=== PATIENT | male | born 1965 | race Caucasian/White ===

== ENCOUNTER 2021-05-15 11:24 | Inpatient (IN) | payer SELFPAY ==
[2021-05-15] VITALS (44 sets, daily range): BP systolic 100–149; BP diastolic 63–115; PULSE 78–124; RESP 12–23; TEMP 36.6–36.9; O2SAT 93–98; BMI 31.6
--- NOTE | 2021-05-15 11:29 | ECG_ITS ---
Measurements Intervals [place] Rate: 75 P: 49 NC: 158 QRS: 70 QRSD: 89 T: 79 QT: 392 QTc: 439 Interpretive Statements SINUS RHYTHM ATRIAL PREMATURE COMPLEX POSSIBLE RIGHT ATRIAL ENLARGEMENT POSSIBLE LEFT ATRIAL ENLARGEMENT INFERIOR ST ELEVATION MYOCARDIAL INFARCT- ACUTE POSTERIOR INFARCT, ACUTE BASELINE ARTIFACT- I, II, III, AVR, AVL, AVF, V1-V2, V4-V6 ABNORMAL ECG Electronically Signed On 05-15-2021 11:57:19 CDT by Tahir Roe D.O.
--- NOTE | 2021-05-15 11:41 | ED.CHESTPAIN ---
HPI - Chest Pain General Chief Complaint: Chest Pain Stated Complaint: cp Time Seen by Provider: 05/15/21 11:30 History of Present Illness HPI narrative: Patient is a 56-year-old male who presents ER with chest pain. Central. Nonradiating. Reports he was sitting in a chair to chiropractor's office getting stem to his back for previous injury when he developed the pain. Occurred 1 hour prior to arrival. He took 3 baby aspirin's prior to arriving here. Reports mild improvement. No n/v/soa/dizziness. Has not had similar sx. Feels like he is having a heart attack. Related Data Allergies Allergy/AdvReac Type Severity Reaction Status Date / Time No Known Allergies Allergy Unverified 12/30/18 10:47 Review of Systems Review of Systems: All systems reviewed & are unremarkable except as noted in HPI and below Constitutional: Constitutional: Denies chills, Denies fever(s) and Denies weakness Cardiovascular: Cardiovascular: Reports chest pain, Denies rapid heart rate and Denies radiating jaw, neck or arm pain Respiratory: Respiratory: Denies cough, Denies dyspnea and Denies wheezing Gastrointestinal: Gastrointestinal: Denies abdominal pain, Denies nausea and Denies vomiting Musculoskeletal: Musculoskeletal: Reports back pain and Denies muscle cramps Neurologic: Denies headache(s), Denies focal weakness and Denies numbness PMFSH Past Medical History Medical History (Updated 05/15/21 @ 11:45 by Pavel Kilgore MD) Healthy adult male Surgical History Surgical History (Updated 05/15/21 @ 11:45 by Pavel Kilgore MD) H/O rotator cuff surgery Family History Family History (Updated 02/24/16 @ 23:21 by DOCTOR UNKNOWN) Sibling Patient's sister is in good health Patient's brother is in good health Family history of hepatitis Father Patient's father is Social History Social History Smoking status: Heavy tobacco smoker Second hand tobacco smoke exposure: No Alcohol intake: current Exam Narrative: GENERAL: Well-appearing, well-nourished, and in no acute distress. HEAD: Normocephalic, atraumatic. EYES: PERRL and EOMI. CHEST: Clear to auscultation. No respiratory distress. HEART: Regular rate and rhythm. Normal peripheral pulses. ABDOMEN: Soft, nontender, nondistended. EXTREMITIES: Normal range of motion. No edema. SKIN: Warm, dry, no rash. NEURO: Alert and oriented x3. PSYCH: Normal mood and affect. Course Course Emergency Course: STEMI activated prior to the EKG being printed due to artifact but obvious ST elevation in lead III. Cath team arrived to patient's bedside. Agree with STEMI diagnosis and will take to [employer]. Patient received an additional dose of baby aspirin here since he had taken 3 baby aspirin's prior to arrival. Additionally received oral Brilinta the request of cardiology. He also received IV heparin. Vital Signs Vital signs: Vital Signs Pulse Rate 78 05/15/21 11:38 Respiratory Rate 16 05/15/21 11:38 Blood Pressure 149/103 H 05/15/21 11:38 Pulse Oximetry 96 05/15/21 11:38 Pulse Rate 78 05/15/21 11:38 Respiratory Rate 16 05/15/21 11:38 Blood Pressure 149/103 H 05/15/21 11:38 Pulse Oximetry 96 05/15/21 11:38 MDM - Chest Pain Lab Data Result diagrams: 05/15/21 11:41 05/15/21 11:41 ECG Data EKG #1: ECG completion date: 05/15/21 ECG completion time: 11:35 EKG Interpretation: normal rate (75), sinus rhythm, PVCs, ST elevation (II/III/aVF), normal QRS, normal QT and NL axis Critical Care Time Critical Care Time Critical Care Time: Yes Total Critical Care Time: 20 Discharge Plan Discharge Clinical Impression: ST elevation AR (STEMI) Patient Disposition: Still a Patient Condition: Guarded Prognosis
[2021-05-15 11:51] LABS: Basophils Absolute Auto 0.1 K/mm3 (0.0-0.1); Basophils Percent Auto 0.7 % (0.2-1.2); Eosinophils Absolute Auto 0.2 K/mm3 (0-0.3); Eosinophils Percent Auto 1.6 % (0-4.4); Hematocrit 52.8 % (42.0-52.0); Hemoglobin 18.4 g/dL (14.0-18.0); Immature Granulocyte Absolute 0.06 K/mm3 (0.00-0.031); Immature Granulocyte Percent A 0.5 % (0-0.5); Lymphocytes Absolute Auto 2.26 K/mm3 (0.9-3.2); Lymphocytes Percent Auto 18.6 % (18.3-44.2); Mean Corpuscular HGB Conc 34.8 g/dl (32-36); Mean Corpuscular Hemoglobin 31.9 pg (26-34); Mean Corpuscular Volume 91.5 fl (80-100); Mean Platelet Volume 9.6 fl (7.4-10.4); Monocytes Absolute Auto 1.1 K/mm3 (0.1-0.6); Neutrophils Absolute Auto 8.4 K/mm3 (1.3-6.7); Neutrophils Percent Auto 69.6 % (45.5-73.1); Platelet Count Result 263 k/mm3 (150-375); Red Blood Count 5.77 M/mm3 (4.6-6.20); Red Cell Distribution Width 12.7 % (11.5-14.5); White Blood Count 12.1 K/mm3 (4.5-10.0)
--- NOTE | 2021-05-15 11:51 | PC.NURSE ---
Pt given brilinta, 4000units heparin, and 4mg of zofran prior to transport to vp lab
[2021-05-15 12:05] LABS: INR 0.9; Prothrombin Time 11.8 Seconds (11.1-14.7)
[2021-05-15 12:06] LABS: Partial Thromboplastin Time 25.4 SECONDS (22.3-36.8)
[2021-05-15 12:09] LABS: Anion Gap 10 mmol/L (8-16); Blood Urea Nitrogen 15 mg/dL (9-20); Calcium 9.6 mg/dL (8.4-10.2); Carbon Dioxide 26 mmol/L (22-30); Chloride 104 mmol/L (98-107); Estimated CRCL calculation 112 ml/min; Estimated Glomerular Filt Rate > 60; Glucose 126 mg/dL (65-110); Potassium 3.7 mmol/L (3.4-5.0); Sodium 140 mmol/L (137-145)
[2021-05-15 12:21] LABS: Troponin I < 0.012 ng/mL (0.000-0.034)
--- NOTE | 2021-05-15 12:41 | ECG_ITS ---
Measurements Intervals [place] Rate: 112 P: [place]: 0 QRS: 61 QRSD: 98 T: -21 QT: 314 QTc: 429 Interpretive Statements ATRIAL FIBRILLATION WITH RAPID VENTRICULAR RESPONSE VENTRICULAR PREMATURE COMPLEX INFERIOR INFARCT, PROBABLY RECENT ABNORMAL ECG Electronically Signed On 05-15-2021 14:33:35 CDT by Tahir Roe D.O.
--- NOTE | 2021-05-15 12:50 | PC.NURSE ---
This patient, Anirudh Orozco, was admitted to Intensive Care Unit-3. Patient/family oriented to hospital policies and general routines including ID bracelet, bed and alarms, visiting hours, pain management, procedures, bathroom and other care routines, personal items, smoking policy, room service/diet, and visiting hours. Information on how to activate the Rapid Response Team has been discussed. Patient/Family are encouraged to report perceived risks to care and to ask questions if they do not understand what they are told or what they should do.
--- NOTE | 2021-05-15 12:50 | WPDCARDPROC ---
Cardiac Cath Procedure Note Date of procedure:: 05/15/21 Performing physician:: Jose Mendoza MD Indication:: acute ST-elevation [place] Brief clinical history:: this is a 56-year-old man with a history of hypertension dyslipidemia and smoking as well as a family history of premature coronary disease. He presents to the emergency room with about 1 hour of significant chest pain and ECG evidence of acute inferior current of injury. Procedure Procedure performed:: Emergency coronary angiogram emergency PCI(CONSTANCE) to OM2 left ventricular Sedation/Medication given:: fentanyl 50 mg Versed 2 mg case start time 11:55 a.m. case end time 12:26 p.m. sedation provided by Raulito Mills RN, trained observer Access site:: right femoral artery Estimated blood loss:: 15-20 cc Procedure note:: patient was brought emergently to the cardiac catheterization lab in the setting of ST-elevation [place]. the right femoral triangle was prepped and draped in the usual fashion. Anesthesia was given with 1% lidocaine infiltrated locally. Using the modified Seldinger technique the right femoral artery was punctured and a 6 Norwegian vascular sheath was placed. I engaged and injected the left coronary artery using a 5 Norwegian FL4 diagnostic catheter. I then engaged and injected the right coronary artery using a 6 Norwegian NASIM JR4 guiding catheter. Following this the cineangiograms were reviewed and PCI of the OM to circumflex was recommended and carried out as detailed below. Prior to PCI the patient was systemically anticoagulated with bolus and infusion of Angiomax. He had received aspirin and 180 mg of Brilinta orally in the emergency room. PCI was then carried out as detailed below. Following this the guidewires guiding catheters were removed and a 5 Norwegian angled pigtail catheter was used to measure of central hemodynamics and to inject LV g in the THORPE projection. After this the case was terminated the sheath was sutured into position he was taken to ICU bed 3. For post mi/PCI recovery. 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 Findings:: Hemodynamics: Central aortic pressure was 144 over 74 left ventricle 140 over 3 end-diastolic 16. No gradient on pullback across the aortic valve. left ventricle: The LV is mildly enlarged the infero posterior segment is severely hypodynamic to a nearly akinetic the remainder of the LV contracts well the global ejection fraction is 50-55%. The left main coronary artery is nicely patent. The left anterior descending is a large caliber vessel extending down to around the apex. There is minimal plaquing but no significant disease in the LAD. The circumflex is a very large vessel with the proximal OM branch taking off ostial E as a ramus intermedius vessel. The ramus branch is unremarkable. The vessel then gives rise to a very large 2nd OM branch that is 100% occluded angiographically appears to be consistent with an abrupt thrombotic occlusion. Following this there is a small posterior circumflex branch that is free of disease. The right coronary artery is small to medium caliber and codominant. The right coronary artery terminates in an RPDA and no RPL branches. The right coronary has about 50-60% stenosis in the 2nd portion there is a long area of mild tubular stenosis. There is ANGELIA 3 flow in the RCA. Intervention: The left coronary artery was engaged using 6 Norwegian CLS 3.5 guiding catheter. A 0.014 BMW guidewire to wire the circumflex, probe the occluded segment of the large OM to traverse the occlusion in the wire was advanced into the distal portion of this vessel. It was pre-dilated using a 3 x 20 mm emerge balloon. This restored ANGELIA 3 flow in the vessel showed it to be quite large. The lesion to be targeted was relatively discrete. Following this the patient developed some concerning ventric
--- NOTE | 2021-05-15 12:59 | PM.IMHP ---
H&P: HPI History of Present Illness Date/Time: 05/15/21 12:59 Chief Complaint: chest pain Narrative: this is a 56-year-old man unknown to me prior to this admission. He is being seen in the emergency room as ST-elevation DE was declared and STEMI protocol was activated by the ED staff. Patient states he was at his chiropractor's office receiving a back treatment dose morning a while he was very suddenly started to notice severe retrosternal chest pressure. He was taken by ambulance to the emergency room where his ECG was she found show evidence of acute inferior current of injury. He reports no history of exertional chest pain prior to this. He is not known to have any cardiac problems prior to this. He states that he is been told by some previous physicians of hypertension and dyslipidemia. I do not believe he is taking any medications at all. Unfortunately he also smokes cigarettes. Patient states his father suffered myocardial infarction and at a premature age. Review of Systems Review of Systems: ROS unobtainable: Yes unobtainable due to medical condition PMFSH Past Medical History Medical History (Updated 05/15/21 @ 11:45 by Pavel Kilgore MD) Healthy adult male Surgical History Surgical History (Updated 05/15/21 @ 11:45 by Pavel Kilgore MD) H/O rotator cuff surgery Family History Family History (Updated 02/24/16 @ 23:21 by DOCTOR UNKNOWN) Sibling Patient's sister is in good health Patient's brother is in good health Family history of hepatitis Father Patient's father is Social History Social History Smoking status: Heavy tobacco smoker Second hand tobacco smoke exposure: No Alcohol intake: current Meds Home Medications and Allergies Allergies Allergy/AdvReac Type Severity Reaction Status Date / Time No Known Allergies Allergy Unverified 12/30/18 10:47 Vital Signs Vital Signs - 24 hr 05/15/21 11:38 Pulse Rate 78 Respiratory Rate 16 Blood Pressure 149/103 H Pulse Oximetry 96 Exam Const: General: in distress and uncomfortable Other: 56-year-old man in moderate distress because of chest pain HENMT: Mouth: Yes moist mucous membranes Eyes: Sclera: sclerae normal Pupils: Equal, round and reactive pupils present Neck: Neck: supple and no JVD Thyroid: thyroid normal Resp: Effort & Inspection: normal respiratory effort Auscultation: clear to auscultation bilaterally Cardio: Rate: regular rate Other: PMI difficult to palpate no murmur no gallop GI: GI Palp: Yes Soft to palpation Auscultation: normal bowel sounds Skin: General skin exam: normal color Neuro: Cognition (Neuro): normal cognition Extrem: General: normal to inspection H&P: Results Labs Labs: Short CBC 05/15/21 Range/Units 11:41 WBC 12.1 H (4.5-10.0) K/mm3 Hgb 18.4 H (14.0-18.0) g/dL Hct 52.8 H (42.0-52.0) % Plt Count 263 (150-375) k/mm3 BMP 05/15/21 11:41 Sodium 140 Potassium 3.7 Chloride 104 Carbon Dioxide 26 BUN 15 Creatinine 0.70 Glucose 126 H Calcium 9.6 Cardiac Enzymes 05/15/21 Range/Units 11:41 Troponin I < 0.012 (0.000-0.034) ng/mL Assessment and Plan Additional Plan 56-year-old man with acute inferior ST-elevation DE being brought for emergency angiography and revascularization. Jose Mendoza MD [facility]
--- NOTE | 2021-05-15 13:22 | WPDCNINT ---
Assessment and Plan Assessment and plan (1) ST elevation [place] (STEMI): Code(s): I21.3 - ST elevation (STEMI) myocardial infarction of unspecified site Status: Acute Assessment and Plan: Patient presented with substernal chest pain while he was at his chiropractor's office. He was brought to the ER where the EKG showed inferior acute injury. Patient was taken to the laborer/grade check where he was found to have 100% occlusion of the large 2nd OM branch of the circumflex, status post CONSTANCE x1 to the culprit vessel. Patient did developed some ventricular reperfusion arrhythmias including nonsustained V-tach. He was bolused with amiodarone 150 mg IV x1. Patient has a ANGELIA 3 flow in this vessel. EF 50-55%. -cardiology following the patient closely -continue Brilinta, rosuvastatin, metoprolol, lisinopril and aspirin (2) Atrial fibrillation with RVR: Code(s): I48.91 - Unspecified atrial fibrillation Status: Acute Assessment and Plan: Patient developed AFib RVR post cardiac catheterization, also had some arrhythmias in the laborer/grade check and was given amiodarone bolus -discussed with Cardiology, recommended starting amiodarone infusion. Orders were placed (3) Hyperlipidemia: Code(s): E78.5 - Hyperlipidemia, unspecified Status: Acute Assessment and Plan: Continue rosuvastatin Additional Plan Discussed with patient updated with his condition and plan of care. He is aware that the sheath will come out in about 2 hours, he will have to lay flat in bed for the 6 hours after that. Code status: Full code Critical care time spent: 39 minutes This dictation may have been done utilizing a voice recognition system. Attempts have been made to correct errors. However, there may be uncorrected grammatical, spelling, and recognition errors present. Due to a high probability of clinically significant, life threatening deterioration, the patient required my highest level of preparedness to intervene emergently and I personally spent this critical care time directly and personally managing the patient. This critical care time included obtaining a history; examining the patient; pulse oximetry; ordering and review of studies; arranging urgent treatment with development of a management plan; evaluation of patient's response to treatment; frequent reassessment; and discussions with other providers. It was exclusive of separately billable procedures and treating other patients and teaching time. Please see Assessment and Plan section and the rest of the note for further information on patient assessment and treatment [employer] Consult Note Consult date: 05/15/21 Time Seen: 13:04 Reason for consult: Inferior ST-elevation [place] status post CONSTANCE x1 to large 2nd OM branch of the circumflex HPI: Anirudh Orozco is a 56 year old male with questionable history of hyperlipidemia, tobacco abuse -smokes 2 packets per day for many years. Patient presented to the ER with substernal chest pain, non radiating, reported shortness of breath but no diaphoresis, dizziness, nausea vomiting. Patient was at his practice office receiving back treatment and while he was there, noticed severe retrosternal chest pressure. He was taken by the ambulance to the ER where his EKG showed inferior acute injury. Patient was taken to the laborer/grade check where he was found to have 100% occlusion of the large 2nd OM branch of the circumflex, status post CONSTANCE x1 to the culprit vessel. Patient did developed some ventricular reperfusion arrhythmias including nonsustained V-tach. He was bolused with amiodarone 150 mg IV x1. Patient has a ANGELIA 3 flow in this vessel. EF 50-55%. Patient was transferred to the ICU for further management Patient seen and examined upon arrival to the ICU, is awake, alert, oriented x3, nonfocal. Pleasant personality. Patient states he does not take any medications for his possible hyperlipidemia. He smokes 2 packets cigarettes per day for many many y
[2021-05-15 13:31] LABS: Cholesterol 192 mg/dL (0-200); LDL Cholesterol Direct 81 mg/dL
[2021-05-15 13:32] LABS: Triglycerides 614 mg/dL (<150)
[2021-05-15] MEDS: AMIODARONE 150 MG/D5W 100 ML 150 MG/100 ML BAG 600 MG IV CONT (13:42)
[2021-05-15] MEDS: AMIODARONE 360 MG/D5W 200 ML 360 MG/200 ML BAG 33.33 MG IV CONT (13:53)
[2021-05-15] MEDS: SODIUM CHLORIDE 0.9% IV 1,000 ML 125 ML IV CONT (13:54)
[2021-05-15] MEDS: ACETAMINOPHEN 325 MG TABLET 650 MG PO ×2 (15:55→19:40)
[2021-05-15] MEDS: MAG HYDROX/AL HYDROX/SIMETH 30 ML UDC PO (16:08)
[2021-05-15 18:11] LABS: Troponin I > 80.000 ng/mL (0.000-0.034)
[2021-05-15] MEDS: AMIODARONE 360 MG/D5W 200 ML 360 MG/200 ML BAG 16.67 MG IV CONT (19:18)
[2021-05-15] MEDS: NITROGLYCERIN SL 0.4 MG TABLET SUBLINGUAL (19:39)
--- NOTE | 2021-05-15 19:39 | PC.NURSE ---
In for patient assessment. Found patient to be diaphoretic, nauseated, and complaining of significant heart burn and back pain.
--- NOTE | 2021-05-15 19:56 | ECG_ITS ---
Measurements Intervals [place] Rate: 107 P: [place]: 0 QRS: 42 QRSD: 102 T: -69 QT: 365 QTc: 488 Interpretive Statements ATRIAL FIBRILLATION WITH RAPID VENTRICULAR RESPONSE INFERIOR INFARCT, PROBABLY RECENT BASELINE ARTIFACT- II, III, AVF ABNORMAL ECG Electronically Signed On 05-16-2021 6:03:17 CDT by Tahir Roe D.O.
[2021-05-15] MEDS: FAMOTIDINE 20 MG TABLET PO (20:03)
[2021-05-15] MEDS: METOPROLOL TARTRATE 25 MG TABLET PO (20:03)
[2021-05-15] MEDS: TICAGRELOR 90 MG TABLET PO (20:03)
[2021-05-15] MEDS: ONDANSETRON INJ 4 MG/2 ML VIAL IV PUSH (20:19)
--- NOTE | 2021-05-15 20:52 | ECG_ITS ---
Measurements Intervals [place] Rate: 84 P: 193 TX: 156 QRS: 51 QRSD: 93 T: -65 QT: 358 QTc: 426 Interpretive Statements ATRIAL FIBRILLATION VENTRICULAR PREMATURE COMPLEX INFERIOR INFARCT, PROBABLY RECENT ABNORMAL ECG Electronically Signed On 05-16-2021 6:04:39 CDT by Tahir Roe D.O.
--- NOTE | 2021-05-15 22:02 | PC.NURSE ---
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 report given to
--- NOTE | 2021-05-15 22:04 | WPDMODSED ---
Moderate Sedation Note-Pt Data Patient Data Allergies Allergy/AdvReac Type Severity Reaction Status Date / Time No Known Allergies Allergy Verified 05/15/21 13:15 Home Medications Medication Instructions Recorded Confirmed Type No Home Medications 05/15/21 05/15/21 History Current Medications: Active Medications Acetaminophen (Acetaminophen 325 Mg Tablet) 650 mg PO Q4H PRN PRN Reason: Mild Pain (1-3) or Fever Last Admin: 05/15/21 19:40 Dose: 650 mg Documented by: Aspirin (Aspirin 81 Mg Chewable Tablet) 81 mg PO DAILY@0800 [facility] Famotidine (Famotidine 20 Mg Tablet) 20 mg PO Q12HR [facility] Last Admin: 05/15/21 20:03 Dose: 20 mg Documented by: Amiodarone HCl/Dextrose (Nexterone 360 Mg/D5w 200 Ml) 360 mg in 200 mls @ 16.667 mls/hr IV CONT .Q12H [facility] Last Admin: 05/15/21 19:18 Dose: 0.5 mg/min, 16.67 mls/hr Documented by: Lisinopril (Lisinopril 5 Mg Tablet) 5 mg PO DAILY [facility] Metoprolol Tartrate (Metoprolol Tartrate 25 Mg Tablet) 25 mg PO Q12HR [facility] Last Admin: 05/15/21 20:03 Dose: 25 mg Documented by: Nitroglycerin (Nitroglycerin Sl 0.4 Mg Tablet) 0.4 mg SUBLINGUAL Q5MIN PRN PRN Reason: Chest Pain Last Admin: 05/15/21 19:39 Dose: 0.4 mg Documented by: Ondansetron HCl (Ondansetron Inj 4 Mg/2 Ml Vial) 4 mg IV PUSH Q4H PRN PRN Reason: Nausea And Vomiting Last Admin: 05/15/21 20:19 Dose: 4 mg Documented by: Rosuvastatin Calcium (Rosuvastatin 10 Mg Tablet) 20 mg PO DAILY [facility] Ticagrelor (Ticagrelor 90 Mg Tablet) 90 mg PO Q12HR [facility] Last Admin: 05/15/21 20:03 Dose: 90 mg Documented by: Sedation/Anesthesia: No previous sedation/anesthesia problems (including family history). [facility] Past Medical History Medical History (Updated 05/15/21 @ 13:39 by Chris Johnson MD) Healthy adult male Surgical History Surgical History (Updated 05/15/21 @ 11:45 by Pavel Kilgore MD) H/O rotator cuff surgery Family History Family History (Updated 02/24/16 @ 23:21 by DOCTOR UNKNOWN) Sibling Patient's sister is in good health Patient's brother is in good health Family history of hepatitis Father Patient's father is Social History Social History Smoking packs per day: 2 Smoking cigarettes per day: 40.0 Years smoked: 40 Smoking pack-years: 80.00 Smoking status: Current every day smoker Tobacco type: cigarettes Second hand tobacco smoke exposure: Yes Alcohol intake: current Drinks per week: 1 Substance use: current Substance use type: marijuana Spiritual care concerns: No Mod Sed Physical Exam Physical Exam Pre Procedural Exam: Normal: Airway Hours since solid foods: 1 Hours since liquid intake: 10 Mallampati Classification: class II Internal Medicine - PN: Obj Da Vital Signs Vital Signs: Vital Signs - 24 hr 05/15/21 11:38 05/15/21 12:50 05/15/21 13:00 Temperature 36.9 C Pulse Rate 78 108 H 103 H Respiratory Rate 16 16 16 Blood Pressure 149/103 H 125/99 H 119/93 H Pulse Oximetry 96 93 93 05/15/21 13:15 05/15/21 13:30 05/15/21 13:42 Temperature Pulse Rate 111 H 116 H 124 H Respiratory Rate 17 14 Blood Pressure 124/92 H 134/115 H 128/101 H Pulse Oximetry 96 96 05/15/21 13:45 05/15/21 13:53 05/15/21 14:00 Temperature Pulse Rate 111 H 102 H 94 Respiratory Rate 19 17 Blood Pressure 113/87 113/87 127/98 H Pulse Oximetry 95 94 05/15/21 14:15 05/15/21 14:30 05/15/21 14:45 Temperature Pulse Rate 101 H 94 102 H Respiratory Rate 20 13 18 Blood Pressure 135/93 H 134/89 118/80 Pulse Oximetry 96 96 97 05/15/21 15:00 05/15/21 15:15 05/15/21 15:30 Temperature Pulse Rate 99 105 H 100 Respiratory Rate 18 23 H 19 Blood Pressure 121/83 127/92 H 109/76 Pulse Oximetry 97 97 97 05/15/21 15:45 05/15/21 16:00 05/15/21 16:15 Temperature Pulse Rate 95 93 116 H Respiratory Rate 22 H 17 19 Blood Pressure 120/81 126/85 140/100 H Pulse Oximetry 97 98 98 05/15/21 16:30 05/15/21 16:4
--- NOTE | 2021-05-15 22:08 | WPDHPUPDATE1 ---
History and Physical Update Update Date/Time: 05/15/21 22:08 History and Physical has been reviewed, including an updated exam of the patient. There are NO changes in the patient's condition. Risks, benefits, and alternatives have been discussed and questions answered. Patient agrees to proceed with procedure. Patient is status post primary PCI earlier today by Dr. Mendoza with stenting of OM branch. I was called by Dr. Serrano that patient had episode of recurrent chest discomfort and diaphoresis, based on the information relayed by the nursing staff. 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 His EKG showed atrial fibrillation with inferior infarct-recent. Cardiac catheterization is being performed to reassess coronary anatomy and rule out stent thrombosis.
--- NOTE | 2021-05-15 22:37 | WPDCARDPROC ---
Cardiac Cath Procedure Note Date of procedure:: 05/15/21 Performing physician:: Prince Underwood MD Procedure Procedure note:: EMERGENCY LEFT HEART CATHETERIZATION AND CORONARY ANGIOGRAM REPORT DATE OF PROCEDURE: 05/15/2021 INDICATION FOR PROCEDURE: Recurrent chest pain in a patient with recent ST-elevation PA post primary PCI BRIEF CLINICAL HISTORY: 56-year-old male with hypertension, dyslipidemia, tobacco use. Patient presented to [facility] earlier today with chest pain, and was found to have inferior ST-elevation PA. He underwent emergent coronary angiogram, and primary PCI/ CONSTANCE x1 of occluded and infarct related OM branch by Dr. Mendoza. I was called by Dr. Serrano that patient had episode of recurrent chest discomfort and diaphoresis, based on the information relayed by the nursing staff. At the time of evaluation in the cardiac cath rn, patient denied chest pain, however, complained of back pain which according to patient was worse due to prolonged bedrest. His EKG showed atrial fibrillation with Recent inferior infarct. we proceeded with cardiac catheterization to reassess coronary anatomy and rule out stent thrombosis. Benefits and risks of the procedure were discussed with the patient in depth, and informed consent was obtained prior to the procedure. Risks of the procedure include but are not limited to vascular complications including groin hematoma, retroperitoneal bleed, vessel perforation; periprocedural PA, cardiac arrhythmias, stroke, contrast induced nephropathy, and . After discussing all the benefits, risks and alternatives, patient was willing to proceed with the procedure. PROCEDURES PERFORMED: 1. Left heart catheterization- Selective left and right coronary angiogram; LV pressure measurement and hemodynamic assessment 2. Selective left common femoral angiogram and deployment of Angio-Seal hemostatic device 3. Moderate sedation-CPT code 04086 MODERATE SEDATION: Midazolam 1 mg; fentanyl 25 mcg; Start time 6 , Stop time 2228 ; Total rgss-in-uiow time 13 minutes; Karen Gil RN was trained observer for moderate sedation. ACCESS SITE: Left common femoral artery PROCEDURE NOTE: After obtaining informed consent, patient was brought to catheterization lab and prepped and draped in a usual sterile manner. After local anesthesia with lidocaine, left common femoral artery access was taken with micropuncture needle followed by insertion of a 6 Kyrgyz sheath. Selective left and right coronary angiogram was performed using 5 Kyrgyz JL4 and JR4 catheters respectively. Orthogonal views were taken. Next, a 5 Kyrgyz pigtail catheter was advanced in the LV cavity and was flushed with normal saline. LV pressure measurement was performed. Gradient across the aortic valve was measured on the pullback of the catheter. Finally, selective left common femoral angiogram was performed followed by successful deployment of Angio-Seal vascular closure device. Patient tolerated procedure well without any immediate procedure related complications. FINDINGS: LEFT MAIN CORONARY: the left main coronary artery is a large caliber vessel, no angiographically significant focal stenosis with the vessel trifurcates into LAD, ramus intermedius and left circumflex branches. LEFT ANTERIOR DESCENDING ARTERY: The LAD is a medium caliber vessel with mild plaque in the proximal-mid segment and significant tortuosity in the upper mid segment. The vessel tapers distally and reaches severely apex. No significant focal stenosis in the diagonal branch. RAMUS INTERMEDIUS: A medium caliber vessel with mild narrowing at the ostium. LEFT CIRCUMFLEX ARTERY: The left circumflex is a medium caliber, codominant vessel. It gives rise to small size OM1 branch; and medium to large caliber OM2 branch. LPPA is a smaller caliber vessel. About 30% plaque is seen in the mid LCX. Recently placed stent in the proximal segment of om 2 branch is pat
--- NOTE | 2021-05-15 22:59 | PC.NURSE ---
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 New left groin puncture site soft with no active bleeding noted to dressing. No hematoma present. Pedal pulses present and equal. Patient denies chest pain, shortness of breath, diaphoresis.
[2021-05-16] VITALS (19 sets, daily range): BP systolic 90–128; BP diastolic 64–97; PULSE 67–86; RESP 12–22; TEMP 36.6–37.2; O2SAT 93–98
[2021-05-16] MEDS: HYDROmorphone HCL INJ (*CRX) 1 MG/ML SYR 0.5 MG IV PUSH (01:14)
[2021-05-16] MEDS: SODIUM CHLORIDE 0.9% IV 1,000 ML 125 ML IV CONT (01:17)
--- NOTE | 2021-05-16 05:11 | ECG_ITS ---
Measurements Intervals [place] Rate: 65 P: 59 VT: 177 QRS: 41 QRSD: 93 T: -66 QT: 422 QTc: 441 Interpretive Statements SINUS RHYTHM VENTRICULAR PREMATURE COMPLEX INFERIOR INFARCT, PROBABLY RECENT BASELINE ARTIFACT- I, III, AVL ABNORMAL ECG Electronically Signed On 05-16-2021 14:12:30 CDT by Tahir Roe D.O.
[2021-05-16 05:26] LABS: Basophils Absolute Auto 0.1 K/mm3 (0.0-0.1); Basophils Percent Auto 0.4 % (0.2-1.2); Eosinophils Absolute Auto 0.1 K/mm3 (0-0.3); Eosinophils Percent Auto 0.9 % (0-4.4); Hematocrit 49.2 % (42.0-52.0); Hemoglobin 17.2 g/dL (14.0-18.0); Immature Granulocyte Absolute 0.05 K/mm3 (0.00-0.031); Immature Granulocyte Percent A 0.4 % (0-0.5); Lymphocytes Absolute Auto 2.14 K/mm3 (0.9-3.2); Lymphocytes Percent Auto 16.8 % (18.3-44.2); Mean Corpuscular Hemoglobin 31.7 pg (26-34); Mean Corpuscular Volume 90.8 fl (80-100); Mean Platelet Volume 9.7 fl (7.4-10.4); Monocytes Absolute Auto 1.4 K/mm3 (0.1-0.6); Monocytes Percent Auto 10.6 % (2.6-8.5); Neutrophils Percent Auto 70.9 % (45.5-73.1); Platelet Count Result 254 k/mm3 (150-375); Red Blood Count 5.42 M/mm3 (4.6-6.20); Red Cell Distribution Width 12.6 % (11.5-14.5); White Blood Count 12.7 K/mm3 (4.5-10.0)
[2021-05-16 05:48] LABS: Anion Gap 7 mmol/L (8-16); Blood Urea Nitrogen 11 mg/dL (9-20); Calcium 8.9 mg/dL (8.4-10.2); Carbon Dioxide 25 mmol/L (22-30); Chloride 105 mmol/L (98-107); Cholesterol 155 mg/dL (0-200); Estimated CRCL calculation 113 ml/min; Estimated Glomerular Filt Rate > 60; Glucose 128 mg/dL (65-110); HDL Direct 24 mg/dL; Phosphorus 3.5 mg/dL (2.5-4.5); Potassium 4.1 mmol/L (3.4-5.0); Sodium 137 mmol/L (137-145); Triglycerides 326 mg/dL (<150)
[2021-05-16 05:58] LABS: LDL Cholesterol Direct 80 mg/dL
[2021-05-16] MEDS: AMIODARONE 360 MG/D5W 200 ML 360 MG/200 ML BAG 16.67 MG IV CONT (07:00)
[2021-05-16] MEDS: FAMOTIDINE 20 MG TABLET PO ×2 (09:08→20:59)
[2021-05-16] MEDS: TICAGRELOR 90 MG TABLET PO ×2 (09:08→20:59)
[2021-05-16] MEDS: ROSUVASTATIN 10 MG TABLET 20 MG PO (09:08)
[2021-05-16] MEDS: ASPIRIN 81 MG CHEWABLE TABLET PO (09:08)
[2021-05-16] MEDS: METOPROLOL TARTRATE 25 MG TABLET PO ×2 (09:08→20:59)
--- NOTE | 2021-05-16 09:20 | WPDINTPN ---
Progress Note: A&P Assessment and Plan (1) ST elevation [place] (STEMI): Code(s): I21.3 - ST elevation (STEMI) myocardial infarction of unspecified site Status: Acute Assessment and Plan: Cardiac catheterization showed 100% occlusion of the large 2nd OM branch of the circumflex, status post CONSTANCE x1 to the culprit vessel. Patient did developed some ventricular reperfusion arrhythmias including nonsustained V-tach. He was bolused with amiodarone 150 mg IV x1. Patient has a ANGELIA 3 flow in this vessel. EF 50-55%. -repeat cardiac catheterization on 05/15 for recurrent chest pain which showed patent stent. 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 -currently on amiodarone infusion -discussed with cardiology in the will start patient on anticoagulation and evaluate for ALEENA and DC cardioversion tomorrow (3) Hyperlipidemia: Code(s): E78.5 - Hyperlipidemia, unspecified Status: Acute Assessment and Plan: Continue rosuvastatin Additional Plan DVT prophylaxis -patient will be started on anticoagulation today Code Status - Full Code Transfer out of ICU Case discussed cardiology Subjective Date/time seen: 05/16/21 09:20 No new complaints this morning. Denies any chest pain shortness of breath cough or fever. States that he has soreness at the site of catheterization on the left groin. No palpitation. All other systems were reviewed and were negative Telemetry shows AFib with controlled ventricular rate Review of Systems Review of Systems: All systems reviewed & are unremarkable except as noted in HPI and below (Subjective) Exam Const: General: comfortable and no acute distress HENMT: Mouth: Yes moist mucous membranes Eyes: Sclera: sclerae normal Pupils: Equal, round and reactive pupils present Neck: Neck: supple Thyroid: thyroid normal Lymphatic: lymphadenopathy not noted Resp: Effort & Inspection: normal respiratory effort Auscultation: clear to auscultation bilaterally Cardio: Rate: tachycardic Rhythm: abnormal rhythm irregularly irregular GI: Inspection: non-distended Auscultation: normal bowel sounds : Other: Deferred Skin: General skin exam: normal color and no rashes or lesions noted Neuro: Cranial nerves: Yes Equal, round and reactive pupils present Other: Patient is awake, alert, oriented x3, nonfocal, answers to questions appropriately and follows simple commands in all extremities Extrem: General: normal to inspection, no edema and no pedal edema Other: Bilateral groins have dressing at puncture site, no ecchymosis or hematoma noted, no tenderness Psych: Mental Status: mental status grossly normal Affect: normal affect Objective Data Vital Signs Vital Signs: Vital Signs - 24 hr 05/15/21 11:38 05/15/21 12:50 05/15/21 13:00 Temperature 36.9 C Pulse Rate 78 108 H 103 H Respiratory Rate 16 16 16 Blood Pressure 149/103 H 125/99 H 119/93 H Pulse Oximetry 96 93 93 05/15/21 13:15 05/15/21 13:30 05/15/21 13:42 Temperature Pulse Rate 111 H 116 H 124 H Respiratory Rate 17 14 Blood Pressure 124/92 H 134/115 H 128/101 H Pulse Oximetry 96 96 05/15/21 13:45 05/15/21 13:53 05/15/21 14:00 Temperature Pulse Rate 111 H 102 H 94 Respiratory Rate 19 17 Blood Pressure 113/87 113/87 127/98 H Pulse Oximetry 95 94 05/15/21 14:15 05/15/21 14:30 05/15/21 14:45 Temperature Pulse Rate 101 H 94 102 H Respiratory Rate 20 13 18 Blood Pressure 135/93 H 134/89 118/80 Pulse Oximetry 96 96 97 05/15/21 15:00 05/15/21 15:15 05/15/21 15:30 Temperature Pulse Rate 99 105 H
--- NOTE | 2021-05-16 09:23 | PM.PNCARD ---
Progress Note: A&P Assessment and Plan (1) ST elevation PA (STEMI): Code(s): I21.3 - ST elevation (STEMI) myocardial infarction of unspecified site Status: Acute Assessment and Plan: Patient is status post primary PCI/CONSTANCE x1 OM branch of left circumflex artery. Repeat coronary angiogram performed last night in the setting of diaphoresis and recurrent chest discomfort showed patent stent, without new lesions. -dual antiplatelet therapy with low-dose aspirin, and ticagrelor. -continue metoprolol tartrate, lisinopril. -high-intensity statin treatment. -spoke at length with the patient about importance of medication compliance. He verbalized understanding. -continue to monitor on telemetry. May transfer to step-down unit. (2) Atrial fibrillation with controlled ventricular rate: Code(s): I48.91 - Unspecified atrial fibrillation Status: Acute Assessment and Plan: Patient has atrial fibrillation, paroxysmal versus persistent. Unknown duration. Currently, he remains in atrial fibrillation with controlled ventricular response. He has been on IV amiodarone. Patient wants to pursue rhythm control strategy. -based on patient's CHADVASc score of 2, anticoagulation is indicated. Will initiate on apixaban 5 mg p.o. b.i.d.. -patient will be on triple therapy (low-dose aspirin, ticagrelor and apixaban) for 1 month, then may switch to single antiplatelet treatment with either ticagrelor or clopidogrel; along with apixaban, to minimize any major bleeding complications. -continue to monitor on telemetry. Keep NPO from midnight, and anticipate ALEENA guided DC cardioversion tomorrow if patient remains in atrial fibrillation. (3) Tobacco abuse: Code(s): Z72.0 - Tobacco use Status: Acute Assessment and Plan: Smoking cessation counseling was done. Patient is willing to quit tobacco. Subjective Date/time seen: 05/16/21 09:23 Date of Service: 05/16/2021 Interval history: Last night, patient had back pain associated with diaphoresis and mild chest discomfort. His repeat coronary angiogram showed patent stent. Overnight, patient denied any chest pain. His back pain has improved,, after he has been able to sit up. On telemetry, patient is in atrial fibrillation with controlled ventricular response. He is currently on IV amiodarone. Exam Narrative: PHYSICAL EXAMINATION: GENERAL: Alert, oriented, no acute distress MENTAL STATUS: affect appropriate to mood EYES: Extraocular movements intact, no pallor EARS: External ears appear normal, hearing grossly normal NOSE: Normal and patent, no discharge MOUTH: Mucous membranes moist, tongue normal NECK: Supple, no JVD CHEST: Good respiratory effort, clear to auscultation HEART: Normal rate, irregularly irregular rhythm ABDOMEN: Soft, nontender NEUROLOGICAL: Alert, oriented, normal speech, no gross motor deficits MUSCULOSKELETAL: No major deformity, no amputation EXTREMITIES: No pedal edema, mild ecchymosis right groin; unremarkable left groin SKIN: no rash on the exposed area, no cyanosis PSYCHIATRIC: Normal mood, appropriate affect Objective Data Vital Signs Vital Signs: Vital Signs - 24 hr 05/15/21 11:38 05/15/21 12:50 05/15/21 13:00 Temperature 36.9 C Pulse Rate 78 108 H 103 H Respiratory Rate 16 16 16 Blood Pressure 149/103 H 125/99 H 119/93 H Pulse Oximetry 96 93 93 05/15/21 13:15 05/15/21 13:30 05/15/21 13:42 Temperature Pulse Rate 111 H 116 H 124 H Respiratory Rate 17 14 Blood Pressure 124/92 H 134/115 H 128/101 H Pulse Oximetry 96 96 05/15/21 13:45 05/15/21 13:53 05/15/21 14:00 Temperature Pulse Rate 111 H 102 H 94 Respiratory Rate 19 17 Blood Pressure 113/87 113/87 127/98 H Pulse Oximetry 95 94 05/15/21 14:15 05/15/21 14:30 05/15/21 14:45 Temperature Pulse Rate 101 H 94 102 H Respiratory Rate 20 13 18 Blood Pressure 135/93 H 134/89 118/80 Pulse Oximetry 96 96 97 05/15/21 15:00 10
--- NOTE | 2021-05-16 10:23 | PC.NURSE ---
Cardiopulmonary Rehab Services flyer was given to patient.
--- NOTE | 2021-05-16 14:08 | PC.NURSE ---
CONVERTED TO NSR AT 1328.
[2021-05-16] MEDS: APIXABAN 5 MG TABLET PO (20:59)
[2021-05-17] VITALS (20 sets, daily range): BP systolic 95–135; BP diastolic 68–97; PULSE 56–75; RESP 8–20; TEMP 36–36.9; O2SAT 96–99
[2021-05-17] MEDS: TICAGRELOR 90 MG TABLET PO (08:04)
[2021-05-17] MEDS: METOPROLOL TARTRATE 25 MG TABLET PO ×2 (08:04→22:31)
[2021-05-17] MEDS: FAMOTIDINE 20 MG TABLET PO ×2 (08:05→22:31)
[2021-05-17] MEDS: ATORVASTATIN 40 MG TABLET 80 MG PO (08:05)
[2021-05-17] MEDS: ASPIRIN 81 MG ENTERIC TABLET PO (08:05)
[2021-05-17] MEDS: APIXABAN 5 MG TABLET PO (08:05)
[2021-05-17] MEDS: lisinopriL 5 MG TABLET PO (08:05)
--- NOTE | 2021-05-17 11:32 | PM.PNCARD ---
Progress Note: A&P Additional Plan This is a 56-year-old man with: Longstanding cigarette smoking presenting [address]-elevation IL. Very impressive ECG. Culprit vessel was a large distal OM circumflex branch which was successfully revascularized. He is doing well today. Had a significant troponin rise as detailed above. He was brought back to the cathode builder urgently the same day for we repeat angiographic assessment because of ongoing symptoms and did not have any evidence of stent thrombosis. I was informed by the case workers that the patient will not be able to afford Brilinta so I have transition this to clopidogrel starting today. I am going to give him a 300 mg loading dose for this reason. I will anticipate likely discharge tomorrow unless there are any further complications. Spoke to the patient at great length about his smoking as well as his activity following discharge and recommended phase 2 cardiac rehab following discharge. Jose Mendoza MD [facility] Subjective Date/time seen: Date of service: 05/17/21 11:32 Interval history: Follow-up visit in this 56-year-old man with: Acute ST-elevation IL due to abrupt occlusion of a very large 2nd OM branch of the circumflex. Successful emergency PCI of this with angioplasty and stenting was carried out. In the acute setting the patient developed atrial fibrillation which has now been resolved with intravenous amiodarone. Troponin level did rise significantly to greater than 80. Date of service 05/17/2021: Patient is asymptomatic today his only symptom is that he is having PVCs that he is aware of. He finds these concerning. I tried to reassure him that this is a benign arrhythmia almost certainly expected following this type of infarction. He also is very concerned about the fact that he has some right coronary disease that is not flow limiting. I discussed this with him in the cathode builder and again today at great length. Exam Const: General: comfortable and no acute distress Other: Pleasant gentleman no distress HENMT: Mouth: Yes moist mucous membranes Eyes: Sclera: sclerae normal Pupils: Equal, round and reactive pupils present Neck: Neck: supple and no JVD Other: Carotid pulses normal no bruit Resp: Effort & Inspection: normal respiratory effort Auscultation: clear to auscultation bilaterally Cardio: Rate: regular rate Rhythm: regular rhythm Other: No murmur no gallop no rub GI: GI Palp: Yes Soft to palpation Auscultation: normal bowel sounds Skin: General skin exam: normal color Neuro: Cognition (Neuro): normal cognition Extrem: General: normal to inspection Objective Data Vital Signs Vital Signs: Vital Signs - 24 hr 05/16/21 12:00 05/16/21 14:00 05/16/21 16:00 Temperature 37.1 C Pulse Rate 80 67 74 Respiratory Rate 16 22 H Blood Pressure 90/69 L 105/76 Pulse Oximetry 97 98 05/16/21 18:00 05/16/21 20:00 05/16/21 20:59 Temperature 36.7 C Pulse Rate 69 73 75 Respiratory Rate 21 H Blood Pressure 114/77 Pulse Oximetry 98 05/16/21 22:00 05/17/21 00:00 05/17/21 00:45 Temperature 36.7 C Pulse Rate 71 71 70 Respiratory Rate 16 Blood Pressure 119/75 Pulse Oximetry 96 05/17/21 02:00 05/17/21 04:00 05/17/21 05:45 Temperature 36.6 C Pulse Rate 60 65 68 Respiratory Rate 15 Blood Pressure 95/68 L Pulse Oximetry 96 05/17/21 06:00 05/17/21 07:59 05/17/21 08:00 Temperature 36.9 C Pulse Rate 56 L 75 69 Respiratory Rate 8 L Blood Pressure 108/73 Pulse Oximetry 98 05/17/21 08:04 05/17/21 10:00 Temperature Pulse Rate 72 59 L Respiratory Rate Blood Pressure Pulse Oximetry Intake/Output Intake/Output: Intake & Output 05/14/21 05/15/21 05/16/21 05/17/21 23:59 23:59 23:59 23:59 Intake Total 300 1550 240 Output Total 7534 2620 0507 [facility], [place] [phone] Meds/Results Medications: Active Medications Generic Name Dose Route Start Last Admin
[2021-05-17] MEDS: CLOPIDOGREL BISULFATE 300 MG TABLET PO (13:08)
--- NOTE | 2021-05-17 16:57 | PC.NURSE ---
This patient, Anirudh Orozco, was received from [ICU-3 ] on 05/17/21 at 1655. Patient/family oriented to unit policies and routines. Report received from JASEN King @ [phone]
--- NOTE | 2021-05-17 17:04 | PC.NURSE ---
This patient, Anirudh Orozco, was transferred to IMU 210 on 05/17/21 at 1657. Personal belongings sent with patient. Report given to Kim AGGARWAL. Appropriate documentation sent with patient.
[2021-05-18] VITALS (10 sets, daily range): BP systolic 96–113; BP diastolic 57–68; PULSE 57–79; RESP 18–20; TEMP 36.4–36.7; O2SAT 98–100
[2021-05-18] MEDS: METOPROLOL TARTRATE 25 MG TABLET PO (08:20)
[2021-05-18] MEDS: FAMOTIDINE 20 MG TABLET PO (08:20)
[2021-05-18] MEDS: ATORVASTATIN 40 MG TABLET 80 MG PO (08:21)
[2021-05-18] MEDS: lisinopriL 5 MG TABLET PO (08:21)
[2021-05-18] MEDS: CLOPIDOGREL BISULFATE 75 MG TABLET PO (08:21)
[2021-05-18] MEDS: ASPIRIN 81 MG ENTERIC TABLET PO (08:21)
--- NOTE | 2021-05-18 12:01 | PC.NURSE ---
On 05/18/21, the student, [Radha Pisano], provided care and completed [facility] documentation on this patient. I have reviewed the student's documentation and agree with the findings.
--- NOTE | 2021-05-18 12:20 | PM.DS ---
DS: Admitting Diagnosis Discharge Date 05/18/2021 Admitting Diagnosis Inferior STEMI DS: Discharge Diagnosis Discharge Diagnosis (1) ST elevation [place] (STEMI): Code(s): I21.3 - ST elevation (STEMI) myocardial infarction of unspecified site Status: Acute (2) Atrial fibrillation with controlled ventricular rate: Code(s): I48.91 - Unspecified atrial fibrillation Status: Acute (3) Hyperlipidemia: Code(s): E78.5 - Hyperlipidemia, unspecified Status: Acute (4) Tobacco abuse: Code(s): Z72.0 - Tobacco use Status: Acute DS: Summary Hospital Course Reason for hospitalization: Inferior STEMI Hospital Course: The patient went as at his chiropractor's office for treatment of his chronic severe back pain when he started having some substernal chest discomfort. 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 Mendoza. The large OM2 was completely occluded and was stented with a 3.5 x 18 mm Violet Grey drug-eluting stent. He had 50-60% stenosis of a small to medium-sized RCA. He had posterior wall hypokinesis with overall ejection fraction 50-55%. He went into atrial fibrillation during the cardiac catheterization was given an amiodarone bolus and drip. The patient did well and was started on Brilinta, beta jose, SAVANAH-inhibitor and statin.. That evening the patient developed significant back pain and diaphoresis and Dr. Dumont was summoned to repeat the heart catheterization. He found the stent was patent and there was no change. It was thought the back pain was his chronic back pain aggravated by bedrest and diaphoresis was related to the pain. He later converted to sinus rhythm and amiodarone drip as well as anticoagulant were discontinued. His Brilinta was changed to clopidogrel since the patient could not afford the Brilinta. By discharge he was up and ambulating with no particular problems, free of chest pain. Heart rate and blood pressure were controlled. His hyperlipidemia was treated with atorvastatin and diet. I discussed the patient's coronary disease, NH, cardiac catheterization results, medications, activity, heart healthy diet, follow-up etc extensively with the patient. He will remain off of work until after being seen in the office. He was advised not to stop dual anti-platelet therapy for any reason unless we give explicit instructions, otherwise he could develop a blood clot on the stent and a heart attack. We also discussed smoking cessation in detail to reduce his risk of future cardiovascular events as well as cancer and COPD. He had tried Chantix in the past but that only gave him nightmares. He is going to try going cold turkey, and is managed for the last 4 days without cigarettes, but I invited him to call if he felt nicotine patches would be of help. He was referred to [facility] for primary care provider. Time spent discussing smoking cessation with patient: more than 10 minutes Time Spent with Patient Time attestation: Total time spent providing and/or coordinating discharge services:> 35 minutes Exam Const: General: cooperative, healthy appearing and comfortable Nutritional Appearance: average body habitus Orientation/consciousness: patient oriented x3 HENMT: Ears: hearing grossly normal bilaterally Eyes: General: appearance normal, both eyes and all related structures Resp: Effort & Inspection: normal respiratory effort Auscultation: clear to auscultation bilaterally Cardio: Jugular venous distension: no JVD GI: GI Palp: No abdominal tenderness Skin: General skin exam: no rashes or lesions noted Neuro: General: patient oriented x3 Speech: normal speech Extrem: Right lower extremity: no edema Left lower extremity: no edema Other: I
== END 2021-05-18 14:00 | disposition home or self-care (01) | DRG 174 ==
LOC: ANHED 11:47 → ANHICU 11:48 → ANHIMU 05-17 17:31
PROVIDERS: Internal Medicine; Internal Medicine Cardiovascular Disease; Admitting Provider Specialist; Emergency Provider Emergency Medicine; Visit Provider Internal Medicine Cardiovascular Disease
PROC: 4A023N7 Measurement of Cardiac Sampling and Pressure, Left Heart, Percutaneous Approach (ICD-10-PCS; CPT 93452; principal; 2021-05-15 11:45)
PROC: 027034Z Dilation of Coronary Artery, One Artery with Drug-eluting Intraluminal Device, Percutaneous Approach (ICD-10-PCS; 2021-05-15 11:45)
PROC: 4A023N7 Measurement of Cardiac Sampling and Pressure, Left Heart, Percutaneous Approach (ICD-10-PCS; 2021-05-15 21:45)
DX: I21.19 ST elevation (STEMI) myocardial infarction involving other coronary artery of inferior wall (principal); I47.2 Ventricular tachycardia; I48.91 Unspecified atrial fibrillation; E78.5 Hyperlipidemia, unspecified; F17.210 Nicotine dependence, cigarettes, uncomplicated; F12.90 Cannabis use, unspecified, uncomplicated; G89.29 Other chronic pain; M54.9 Dorsalgia, unspecified
CPT/HCPCS: 36415; 80048; 80061; 83735; 84100; 84484; 85025; 85610; 85730; 93005; 93458; 99291; A9270; C1725; C1760; C1769; C1874; C1887; C1894; C9606; G0269; J0282; J0461; J0583; J1170; J1644; J2001; J2250; J2405; J3010; J7030; J7040

== ENCOUNTER 2021-06-01 16:40 | Outpatient (CLI) | payer OTHER, SELFPAY ==
[2021-06-01 17:22] LABS: Anion Gap 11 mmol/L (8-16); Blood Urea Nitrogen 19 mg/dL (9-20); Carbon Dioxide 28 mmol/L (22-30); Chloride 103 mmol/L (98-107); Estimated Glomerular Filt Rate > 60; Glucose 104 mg/dL (65-110); Magnesium 2.2 mg/dL (1.6-2.3); Potassium 4.4 mmol/L (3.4-5.0); Sodium 142 mmol/L (137-145)
== END 2021-06-01 16:41 | disposition home or self-care (01) ==
LOC: ANHLAB 16:44
PROVIDERS: Visit Provider Nurse Practitioner Adult Health
DX: I49.3 Ventricular premature depolarization (principal)
CPT/HCPCS: 36415; 80048; 83735

== ENCOUNTER 2021-11-23 09:32 | Outpatient (CLI) | payer OTHER, SELFPAY ==
[2021-11-23 10:19] LABS: Hematocrit 53.3 % (42.0-52.0); Hemoglobin 18.5 g/dL (14.0-18.0); Mean Corpuscular HGB Conc 34.7 g/dl (32-36); Mean Corpuscular Hemoglobin 32.1 pg (26-34); Mean Corpuscular Volume 92.4 fl (80-100); Mean Platelet Volume 9.8 fl (7.4-10.4); Platelet Count Result 275 k/mm3 (150-375); Red Blood Count 5.77 M/mm3 (4.6-6.20); Red Cell Distribution Width 13.1 % (11.5-14.5); White Blood Count 9.7 K/mm3 (4.5-10.0)
[2021-11-23 10:37] LABS: Alanine Aminotransferase 26 U/L (4-50); Albumin Level 4.6 g/dL (3.5-5.1); Alkaline Phosphatase 83 U/L (38-126); Anion Gap 9 mmol/L (8-16); Aspartate Amino Transferase 26 U/L (17-59); Bilirubin,Total 0.6 mg/dL (0.2-1.3); Blood Urea Nitrogen 16 mg/dL (9-20); Calcium 9.4 mg/dL (8.4-10.2); Carbon Dioxide 26 mmol/L (22-30); Chloride 101 mmol/L (98-107); Cholesterol 145 mg/dL (0-200); Estimated Glomerular Filt Rate > 60; Glucose 123 mg/dL (65-110); HDL Direct 32 mg/dL; Potassium 4.3 mmol/L (3.4-5.0); Sodium 136 mmol/L (137-145); Triglycerides 360 mg/dL (<150)
[2021-11-23 10:48] LABS: LDL Cholesterol Direct 53 mg/dL
[2021-11-23 11:07] LABS: Prostate Specific Antigen 2.3 ng/mL (< OR = 4.0)
== END 2021-11-23 09:33 | disposition home or self-care (01) ==
LOC: ANHLAB 09:36
PROVIDERS: PCP Family Medicine; Visit Provider Family Medicine
DX: Z12.5 Encounter for screening for malignant neoplasm of prostate (principal); E78.2 Mixed hyperlipidemia; I48.91 Unspecified atrial fibrillation; Z13.220 Encounter for screening for lipoid disorders
CPT/HCPCS: 36415; 80048; 80061; 80076; 84153; 85027; G0103

== ENCOUNTER 2023-02-11 09:44 | Outpatient (CLI) | payer OTHER, SELFPAY ==
--- NOTE | ~2023-02-11 | XR_ITS ---
XR lumbar spine 6V w bending DATE: 02/11/2023 10:25 INDICATION: Spondylosis without myelopathy or radiculopathy TECHNIQUE: AP, lateral, bilateral oblique views, coned lateral lumbosacral view. Flexion and extendin g since standing lateral views. COMPARISON: None FINDINGS: There are 6 functional lumbar vertebrae. Slight grade 1 anterolisthesis at functional L4-5 stable in flexion and extension. Approximately 5 mm anterolisthesis at functional L5-6, stable in flexion and extension. Transitional L6 lumbar vertebra with sacralization pseudoarthrosis on the left. No fracture or bone destruction or spondylolisthesis. The lumbar pedicles are intact. Mild degenerative disc disease at L3-4, L4-5, L5-6. The sacroiliac joints are intact. IMPRESSION: 6 functional lumbar vertebra with sacralization/pseudoarthrosis on the left Minimal anterolisthesis at functional L4-5 and L5 6 Mild degenerative disc disease Reviewed, dictated and finalized at location B.
[2023-02-11 10:43] LABS: Hematocrit 50.5 % (42.0-52.0); Mean Corpuscular HGB Conc 33.7 g/dl (32-36); Mean Corpuscular Hemoglobin 32.4 pg (26-34); Mean Corpuscular Volume 96.2 fl (80-100); Platelet Count Result 266 k/mm3 (150-375); Red Blood Count 5.25 M/mm3 (4.6-6.20); Red Cell Distribution Width 13.2 % (11.5-14.5); White Blood Count 12.5 K/mm3 (4.5-10.0)
[2023-02-11 10:47] LABS: Alanine Aminotransferase 23 U/L (6-50); Albumin Level 4.4 g/dL (3.5-5.1); Alkaline Phosphatase 81 U/L (38-126); Anion Gap 2 mmol/L (8-16); Aspartate Amino Transferase 21 U/L (17-59); Bilirubin,Total 0.6 mg/dL (0.2-1.3); Blood Urea Nitrogen 14 mg/dL (9-20); Calcium 9.3 mg/dL (8.4-10.2); Carbon Dioxide 33 mmol/L (22-30); Chloride 103 mmol/L (98-107); Cholesterol 111 mg/dL (0-200); Estimated Glomerular Filt Rate > 60; Glucose 118 mg/dL (65-110); HDL Direct 27 mg/dL; Potassium 3.9 mmol/L (3.4-5.0); Sodium 138 mmol/L (137-145); Triglycerides 141 mg/dL (<150)
[2023-02-11 10:58] LABS: LDL Cholesterol Direct 54 mg/dL
[2023-02-11 11:18] LABS: Prostate Specific Antigen 2.2 ng/mL (< OR = 4.0)
[2023-02-11 11:31] LABS: Erythrocyte Sedimentation Rate 12 mm/hr (0-20)
== END 2023-02-11 09:45 | disposition home or self-care (01) ==
PROVIDERS: PCP Family Medicine; Referring Provider Internal Medicine Cardiovascular Disease; Visit Provider Family Medicine
DX: M47.816 Spondylosis without myelopathy or radiculopathy, lumbar region (principal); M43.27 Fusion of spine, lumbosacral region; M51.36 Other intervertebral disc degeneration, lumbar region; I10 Essential (primary) hypertension; E78.2 Mixed hyperlipidemia; Z13.220 Encounter for screening for lipoid disorders; R35.1 Nocturia; N40.1 Benign prostatic hyperplasia with lower urinary tract symptoms; Z12.5 Encounter for screening for malignant neoplasm of prostate; G62.9 Polyneuropathy, unspecified
CPT/HCPCS: 36415; 72114; 80048; 80061; 80076; 82607; 84153; 84443; 85027; 85652; G0103

== ENCOUNTER 2023-07-21 06:53 | Emergency (ER) | payer OTHER, SELFPAY ==
[2023-07-21] VITALS (8 sets, daily range): BP systolic 103–147; BP diastolic 65–87; PULSE 62–74; RESP 14–24; TEMP 36.7–36.8; O2SAT 93–99
--- NOTE | 2023-07-21 07:05 | ECG_ITS ---
Measurements Intervals [place] Rate: 66 P: 65 MI: 161 QRS: 69 QRSD: 99 T: 27 QT: 398 QTc: 417 Interpretive Statements SINUS RHYTHM POSSIBLE INFERIOR MYOCARDIAL INFARCTION , OF INDETERMINATE AGE [30 ms Q WAVE IN II/aVF] COMPARED TO ECG 05/16/2021 13:52:39 INFERIOR [place] CHANGES ARE RESOLVING Electronically Signed On 07-21-2023 17:05:31 GENETICIST by Kamryn Garcia M.D.
[2023-07-21 07:31] LABS: Alanine Aminotransferase 44 U/L (6-50); Albumin Level 4.3 g/dL (3.5-5.1); Alkaline Phosphatase 80 U/L (38-126); Anion Gap 10 mmol/L (8-16); Aspartate Amino Transferase 34 U/L (17-59); Bilirubin,Total 0.7 mg/dL (0.2-1.3); Blood Urea Nitrogen 16 mg/dL (9-20); Calcium 9.8 mg/dL (8.4-10.2); Carbon Dioxide 22 mmol/L (22-30); Chloride 105 mmol/L (98-107); Estimated CRCL calculation 110 ml/min; Estimated Glomerular Filt Rate > 60; Glucose 126 mg/dL (65-110); Sodium 137 mmol/L (137-145)
--- NOTE | 2023-07-21 08:04 | ED.GENADULT ---
HPI - General Adult General Chief complaint: Syncope Stated complaint: syncope Time Seen by Provider: 07/21/23 07:18 Source: patient, RN notes reviewed and old records reviewed Mode of arrival: ambulatory Limitations: no limitations History of Present Illness HPI narrative: This is a 58 year male with history of coronary artery disease s/p stent who presents for evaluation of dizziness. He states last night he had 3 episodes in which he felt like he was going to pass out but he did not have syncopal episodes . He reports he would be sitting down and he would become sweating, dizziness and then he became nauseous. He states several months ago he had episode in which he became diaphoretic and he would pass out. He also states 2 years ago he had episode in which he became diaphoretic and pass out. He has spoken to his trial manager about this multiple times and they have lowered his dose of his metoprolol as suspected cause. He has had Holter monitor and his last cardiac cath was in the spring. He was seen by his trial manager, Dr. Gardner, on Saturday. Related Data Home Medications Medication Instructions Recorded Confirmed pantoprazole 40 mg tablet,delayed 40 mg PO QAM 10/12/22 03/22/23 release ticagrelor 90 mg tablet 90 mg PO Q12H 10/12/22 03/22/23 Allergies Allergy/AdvReac Type Severity Reaction Status Date / Time No Known Allergies Allergy Verified 03/22/23 07:35 Review of Systems Constitutional: Constitutional: Denies weakness Cardiovascular: Cardiovascular: Denies chest pain, Denies syncope, Denies rapid heart rate, Denies irregular heart rhythm, Denies leg edema and Denies dyspnea Respiratory: Respiratory: Denies chest congestion, Denies hemoptysis, Denies excessive phlegm production and Denies dyspnea Gastrointestinal: Gastrointestinal: Denies abdominal pain, Denies hematochezia, Denies diarrhea and Denies vomiting Genitourinary: Genitourinary: Denies hematuria, Denies dysuria, Denies penile discharge and Denies testicular pain Musculoskeletal: Musculoskeletal: Denies joint swelling, Denies loss of height and Denies muscle weakness Neurologic: Denies syncope, Denies focal weakness and Denies weakness PMFSH Past Medical History Medical History Abdominal bloating BMI 26.0-26.9,adult BMI 27.0-27.9,adult BMI 28.0-28.9,adult BMI 29.0-29.9,adult BPH associated with nocturia Coronary artery disease Diaphoresis Essential hypertension Healthy adult male Lumbar spondylosis Neuropathy Screening for prostate cancer Surgical History Surgical History H/O rotator cuff surgery History of coronary artery stent placement Family History Family History Sibling Patient's sister is in good health Patient's brother is in good health Family history of hepatitis Father Patient's father is Mother No problems noted. Social History Social History Smoking packs per day: 2 Smoking cigarettes per day: 40.0 Years smoked: 40 Smoking pack-years: 80.00 Smoking status: Current every day smoker (2 ppd) Tobacco type: cigarettes Second hand tobacco smoke exposure: Yes Alcohol intake: current Drinks per week: 1 Substance use: current Substance use type: marijuana Lack of Transportation: No Lack of Food: Never True Current Housing: I Have Housing Concerned About Future Housing: No Difficulty Paying Gas/Electric Bills: No Difficulty Paying for Meds: No Currently Unemployed: No Education: High School Diploma/GED Difficulty w/ Childcare or Family Care: No Living arrangements: alone Occupation/Education: unemployed 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
[2023-07-21 08:19] LABS: Basophils Percent Auto 0.7 % (0.2-1.2); Eosinophils Absolute Auto 0.1 K/mm3 (0-0.3); Eosinophils Percent Auto 0.8 % (0-4.4); Hematocrit 51.5 % (42.0-52.0); Hemoglobin 17.4 g/dL (14.0-18.0); Immature Granulocyte Absolute 0.02 K/mm3 (0.00-0.031); Immature Granulocyte Percent A 0.3 % (0-0.5); Lymphocytes Absolute Auto 1.27 K/mm3 (0.9-3.2); Lymphocytes Percent Auto 21.1 % (18.3-44.2); Mean Corpuscular HGB Conc 33.8 g/dl (32-36); Mean Corpuscular Hemoglobin 31.4 pg (26-34); Mean Platelet Volume 9.7 fl (7.4-10.4); Monocytes Absolute Auto 0.8 K/mm3 (0.1-0.6); Monocytes Percent Auto 13.1 % (2.6-8.5); Neutrophils Absolute Auto 3.8 K/mm3 (1.3-6.7); Platelet Count Result 203 k/mm3 (150-375); Red Blood Count 5.54 M/mm3 (4.6-6.20); Red Cell Distribution Width 13.3 % (11.5-14.5)
[2023-07-21 08:31] LABS: INR 0.9; Prothrombin Time 12.7 Seconds (11.1-14.7)
[2023-07-21 08:32] LABS: Partial Thromboplastin Time 30.1 SECONDS (22.3-36.8)
[2023-07-21 08:42] LABS: Troponin I < 0.012 ng/mL (0.000-0.034)
[2023-07-21 08:57] LABS: D Dimer < 0.27 ug/mL (<0.48)
[2023-07-21] MEDS: SODIUM CHLORIDE 0.9% IV 1,000 ML 999 ML IV CONT (09:33)
== END 2023-07-21 10:49 | disposition home or self-care (01) ==
PROVIDERS: Emergency Medicine; Emergency Provider General Practice; PCP Family Medicine
DX: R55 Syncope and collapse (principal); I25.10 Atherosclerotic heart disease of native coronary artery without angina pectoris; I10 Essential (primary) hypertension; F17.210 Nicotine dependence, cigarettes, uncomplicated
CPT/HCPCS: 36415; 80053; 83735; 84484; 85025; 85380; 85610; 85730; 93005; 96360; 99284; J7030

== ENCOUNTER 2023-10-15 08:24 | Emergency (ER) | payer MEDICARE, OTHER, SELFPAY ==
--- NOTE | ~2023-10-15 | CT_ITS ---
EXAMINATION: CT abdomen pelvis w con DATE: 10/15/2023 10:02 INDICATION: Diffuse lower abdominal pain, melena, diarrhea and nausea TECHNIQUE: Computed tomography (CT) of the abdomen and pelvis was performed with 100 mL Omnipaque-350 intravenous contrast. Automated exposure control and iterative reconstruction technique were employe d. The dose-length product was 427.18 mGy-cm. COMPARISON: None FINDINGS: Mild dependent atelectasis in the bilateral lower lobes. Heart size normal. Atherosclerotic coronary artery calcific lesion. No pericardial or pleural effusion. There is edematous-appearing wall thicken ing in the distal third of the esophagus suggestive of esophagitis which may relate to reflux or vomi ting with the provided history of nausea. Liver, gallbladder, spleen, pancreas, bilateral adrenal gla nds are normal. Bilateral renal cysts the largest exophytic cyst on the left measuring 1.9 cm in maxi mal diameter. Normal appendix. Moderate sigmoid diverticulosis without adjacent inflammatory change t o suggest diverticulitis. No bowel obstruction. Bladder is normal. Prostatomegaly measuring 5.6 x 4.2 cm. No free intraperitoneal gas or fluid. No pathologically enlarged abdominal or pelvic lymphadenop athy. Transitional thoracolumbar and lumbosacral segments with mild intervening spondylosis. Mild to moderate bilateral sacroiliac osteoarthritis. IMPRESSION: 1. Edematous-appearing wall thickening the distal third of the esophagus suggestive of esophagitis wh ich could relate to reflux or vomiting. 2. Diverticulosis. 3. Prostatomegaly. Reviewed, dictated and finalized at location A. IMPRESSION: 1. Edematous-appearing wall thickening the distal third of the esophagus sugges tive of esophagitis which could relate to reflux or vomiting. 2. Diverticulosis. 3. Prostatomegaly.
[2023-10-15 08:33] VITALS: BP 133/71; PULSE 95; RESP 20; TEMP 36.4; O2SAT 96
[2023-10-15 08:56] LABS: Basophils Absolute Auto 0.1 K/mm3 (0.0-0.1); Basophils Percent Auto 0.5 % (0.2-1.2); Eosinophils Absolute Auto 0.2 K/mm3 (0-0.3); Eosinophils Percent Auto 1.4 % (0-4.4); Hematocrit 55.7 % (42.0-52.0); Immature Granulocyte Absolute 0.03 K/mm3 (0.00-0.031); Immature Granulocyte Percent A 0.3 % (0-0.5); Lymphocytes Absolute Auto 2.09 K/mm3 (0.9-3.2); Mean Corpuscular HGB Conc 34.1 g/dl (32-36); Mean Corpuscular Hemoglobin 31.9 pg (26-34); Mean Corpuscular Volume 93.5 fl (80-100); Mean Platelet Volume 9.9 fl (7.4-10.4); Monocytes Percent Auto 8.4 % (2.6-8.5); Neutrophils Absolute Auto 8.3 K/mm3 (1.3-6.7); Neutrophils Percent Auto 71.4 % (45.5-73.1); Platelet Count Result 281 k/mm3 (150-375); Red Blood Count 5.96 M/mm3 (4.6-6.20); Red Cell Distribution Width 13.6 % (11.5-14.5); White Blood Count 11.6 K/mm3 (4.5-10.0)
[2023-10-15 09:06] LABS: Alanine Aminotransferase 19 U/L (6-50); Albumin Level 4.4 g/dL (3.5-5.1); Alkaline Phosphatase 81 U/L (38-126); Anion Gap 6 mmol/L (8-16); Aspartate Amino Transferase 25 U/L (17-59); Bilirubin,Total 1.4 mg/dL (0.2-1.3); Blood Urea Nitrogen 17 mg/dL (9-20); Calcium 9.8 mg/dL (8.4-10.2); Carbon Dioxide 25 mmol/L (22-30); Chloride 106 mmol/L (98-107); Estimated CRCL calculation 85 ml/min; Estimated Glomerular Filt Rate > 60; Glucose 130 mg/dL (65-110); Lipase 63 U/L (23-300); Potassium 3.7 mmol/L (3.4-5.0); Sodium 137 mmol/L (137-145)
[2023-10-15 09:07] VITALS: PULSE 86; RESP 18
[2023-10-15 09:16] LABS: Appearance Urine Cloudy (Clear); Bacteria Urine None Seen /hpf; Bilirubin Urine 2+ (Negative); Blood Urine 1+ (Negative); Color Urine Dark Yellow (Yellow); Glucose Urine UA Negative (Negative); Ketones Urine Trace mg/dL (Negative); Leukocyte Esterase Ur 1+ LEU/UL (Negative); Mucus Urine Present /lpf; Nitrate Urine Negative (Negative); Protein Urine 2+ mg/dL (Negative); Squamous Epithelial Cell Urine Occasional /hpf (Few); pH Urine 5.5 (5.0-9.0)
[2023-10-15 09:19] LABS: Specific Grav Ur 1.034 (1.001-1.035)
--- NOTE | 2023-10-15 09:19 | ECG_ITS ---
Measurements Intervals [place] Rate: 82 P: 63 W[place]: 158 QRS: 65 QRSD: 100 T: 48 QT: 374 QTc: 439 Interpretive Statements SINUS RHYTHM VENTRICULAR TRIGEMINY POSSIBLE LEFT ATRIAL ENLARGEMENT DELAYED PRECORDIAL R/S TRANSITION MINIMAL Q WAVES- INFERIOR LEADS BORDERLINE ST-T WAVE ABNORMALITY- HIGH LATERAL LEADS ABNORMAL ECG COMPARED TO ECG 07/21/2023 07:10:34 VENTRICULAR TRIGEMINY NOW PRESENT Electronically Signed On 10-15-2023 10:42:27 CDT by Tahir Roe D.O.
[2023-10-15 09:20] LABS: Add Urine Microscopic? YES
--- NOTE | 2023-10-15 09:20 | ED.ABDPAIN ---
HPI - Abdominal Pain General Chief Complaint: Abdominal Pain Stated Complaint: ABD PAIN,CONSTIPATION Time Seen by Provider: 10/15/23 08:57 Source: patient Mode of arrival: ambulatory Limitations: no limitations History of Present Illness HPI narrative: Patient is a 58-year-old male who presents the ED with report of constipation. Patient reports having intermittent constipation over the last 2-3 weeks. He has been using Metamucil, Ex-Lax, Pepto-Bismol at home. Last bowel movement was yesterday, small in nature, diarrhea. States over the last 3-4 days, his stool has been dark black in color. He did not start taking Pepto-Bismol until yesterday. He is on Plavix due to history of CAD status post stenting. Denies any bright red rectal bleeding. Reports diffuse abdominal pain and bloating, nausea, diaphoresis. Denies vomiting, and documented fevers, urinary complaints. Related Data Home Medications Medication Instructions Recorded Confirmed pantoprazole 40 mg tablet,delayed 40 mg PO QAM 10/12/22 07/26/23 release ticagrelor 90 mg tablet 90 mg PO Q12H 10/12/22 07/26/23 Allergies Allergy/AdvReac Type Severity Reaction Status Date / Time No Known Allergies Allergy Verified 10/15/23 10:23 Review of Systems Review of Systems: CONSTITUTIONAL: See HPI. GASTROINTESTINAL: See HPI. GENITOURINARY: Denies dysuria or hematuria. MUSCULOSKELETAL: Denies back pain, extremity pain, myalgia. All systems reviewed & are unremarkable except as noted in HPI and below PMFSH Past Medical History Medical History Abdominal bloating BMI 26.0-26.9,adult BMI 27.0-27.9,adult BMI 28.0-28.9,adult BMI 29.0-29.9,adult BPH associated with nocturia Coronary artery disease Diaphoresis Essential hypertension Healthy adult male Lumbar spondylosis Neuropathy Screening for prostate cancer Surgical History Surgical History H/O rotator cuff surgery History of coronary artery stent placement Family History Family History Sibling Patient's sister is in good health Patient's brother is in good health Family history of hepatitis Father Patient's father is Heart disease Mother No problems noted. Social History Social History Smoking packs per day: 2 Smoking cigarettes per day: 40.0 Years smoked: 40 Smoking pack-years: 80.00 Smoking status: Current every day smoker (2 ppd) Tobacco type: cigarettes Second hand tobacco smoke exposure: Yes Alcohol intake: current Drinks per week: 1 Substance use: current Substance use type: marijuana Do You Feel Safe in your Home?: Yes Lack of Transportation: No Lack of Food: Never True Current Housing: I Have Housing Concerned About Future Housing: No Difficulty Paying Gas/Electric Bills: No Difficulty Paying for Meds: No Currently Unemployed: No Education: High School Diploma/GED Difficulty w/ Childcare or Family Care: No Living arrangements: alone Occupation/Education: unemployed 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 HEAD: Normocephalic, atraumatic. RESPIRATORY: Airway patent, respirations nonlabored. Clear to auscultation bilaterally, no rales, rhonchi, wheezing. CARDIOVASCULAR: Regular rate and rhythm without murmurs, rubs, or gallops. ABDOMINAL: Soft, diffuse tenderness throughout lower abdomen, worst throughout left lower quadrant, nondistended. Normoactive BS. MUSCULOSKELETAL: Moves all extremities. No gross deformities. SKIN: Warm, dry, normal color. NEURO: A&O
[2023-10-15] MEDS: PANTOPRAZOLE SODIUM IV 40 MG VIAL IV PUSH (10:16)
[2023-10-15] MEDS: SODIUM CHLORIDE 0.9% IV 1,000 ML 999 ML IV CONT (10:16)
[2023-10-15] MEDS: MORPHINE SULFATE (*CRX) 4 MG/ML INJ IV PUSH (10:17)
[2023-10-15] MEDS: ONDANSETRON INJ 4 MG/2 ML VIAL IV PUSH (10:17)
[2023-10-15 10:18] VITALS: BP 133/65; PULSE 75; RESP 18; O2SAT 98
[2023-10-15 10:30] VITALS: PULSE 80; RESP 17; O2SAT 96
[2023-10-15 11:01] VITALS: BP 138/70; PULSE 78; RESP 18; O2SAT 92
[2023-10-15] MEDS: DICYCLOMINE HCL 10 MG CAPSULE 20 MG PO (11:32)
[2023-10-15 12:18] VITALS: BP 131/84; PULSE 71; RESP 15; TEMP 36.9; O2SAT 99
== END 2023-10-15 12:19 | disposition home or self-care (01) ==
PROVIDERS: Emergency Medicine; Emergency Provider Physician Assistant
DX: K29.00 Acute gastritis without bleeding (principal); R14.0 Abdominal distension (gaseous); R14.3 Flatulence; R10.9 Unspecified abdominal pain; I25.10 Atherosclerotic heart disease of native coronary artery without angina pectoris; I10 Essential (primary) hypertension; N40.1 Benign prostatic hyperplasia with lower urinary tract symptoms; R35.1 Nocturia; F17.210 Nicotine dependence, cigarettes, uncomplicated; Z95.5 Presence of coronary angioplasty implant and graft; Z79.02 Long term (current) use of antithrombotics/antiplatelets; K57.90 Diverticulosis of intestine, part unspecified, without perforation or abscess without bleeding; R00.8 Other abnormalities of heart beat; R94.31 Abnormal electrocardiogram [ECG] [EKG]
CPT/HCPCS: 36415; 74177; 80053; 83690; 85025; 87086; 93005; 96361; 96374; 96375; 99284; A9270; C9113; J2270; J2405; J7030; Q9967

== ENCOUNTER 2024-07-23 09:00 | Outpatient (CLI) | payer MEDICARE, SELFPAY ==
--- NOTE | ~2024-07-23 | US_ITS ---
ULTRASOUND ANKLE BRACHIAL INDEX Ordering provider: Sarahi Loomis, REVENUE FIELD AGENT History: . PAIN IN LEGS,PAIN WITH AMBULATION . Comparison: None. FINDINGS: Right brachial systolic blood pressure: 120 mmHg Left brachial systolic blood pressure: 136 mmHg Right ankle systolic blood pressure: 160 mmHg Left ankle systolic blood pressure: 155 mmHg Right ankle/arm index (CINDY): 1.18 Left ankle/arm index (CINDY): 1.14 Note regarding CINDY: --Normal= 1.0 or slightly greater. --Claudication (moderate stenosis or occlusive state)= 0.6 to 0.9. --Rest pain (severe occlusive states)= 0.5 or less. IMPRESSION: Normal CINDY Reviewed, dictated and finalized at location A. OR PUBLICATIONS IMPRESSION: Normal CINDY
== END 2024-07-23 09:01 | disposition home or self-care (01) ==
PROVIDERS: PCP Family Medicine; Visit Provider Registered Nurse
DX: M79.661 Pain in right lower leg (principal); M79.662 Pain in left lower leg; R09.89 Other specified symptoms and signs involving the circulatory and respiratory systems; F17.210 Nicotine dependence, cigarettes, uncomplicated
CPT/HCPCS: 93922

== ENCOUNTER 2024-11-03 09:29 | Outpatient (CLI) | payer MEDICARE, SELFPAY ==
--- NOTE | ~2024-11-03 | US_ITS ---
EXAMINATION: US arterial duplex LE DATE: 11/03/2024 10:56 INDICATION: Symptoms and signs of the circulatory and respiratory systems. Arterial occlusive disease with claudication. TECHNIQUE: Multiple grayscale and Doppler ultrasound images of the arteries of the lower limbs were o btained. COMPARISON: 07/23/2024 FINDINGS: Left lower limb: Small amount of scattered nonhemodynamically significant atherosclerotic plaque in the arteries of th e left lower limb. No hemodynamic significant stenosis at either on the grayscale imaging or focal in crease in peak systolic velocities to suggest hematoma significant stenosis. Triphasic waveforms with normal brisk systolic upstrokes in the left common femoral, profunda femoral, superficial femoral, p opliteal and posterior tibial arteries. Biphasic waveforms with additional brisk systolic upstrokes i n the left peroneal, anterior tibial and dorsalis pedis arteries. Right lower limb: Similar small amounts of scattered atherosclerotic plaque also without evident hemodynamically signif icant stenosis on grayscale imaging or as evidenced by increased peak systolic velocities. Triphasic waveforms with brisk systolic upstrokes in the right common femoral, profunda femoral, superficial fe moral, popliteal, posterior tibial, peroneal, anterior tibial and dorsalis pedis arteries. IMPRESSION: 1. Small amount of scattered atherosclerotic plaque in the arteries of the bilateral lower limbs with no evident hemodynamically significant stenosis and with brisk systolic upstrokes throughout. Reviewed, dictated and finalized at location B. IMPRESSION: 1. Small amount of scattered atherosclerotic plaque in the arteries of the bila teral lower limbs with no evident hemodynamically significant stenosis and with brisk systolic upstrokes throughout.
--- OUTSIDE RECORDS SUMMARY | 2024-11-03 10:22 | XMS_ITS | Referral Summary ---
Author Organization [facility] [address] Address [address] [place] [address] Care Team Providers Care Technical Coordinator Name Role Phone Chandra Sanchez MD Primary Care Provider [phone] Allergies No known active allergies Medications aspirin 81 mg enteric coated tablet Take 81 mg by mouth daily Active metoprolol tartrate (LOPRESSOR) 25 mg immediate release tabletIndication s:Coronary artery disease involving [place] coronary artery of [place]re[place]ski heart without angina pectoris Take 1 tablet by mouth twice daily 180 tablet 06/11/2022 Active clopidogreL (PLAVIX) 75 mg tabletIndication s:Coronary artery disease involving [place] coronary artery of [place]re[place]ski heart without angina pectoris Take 1 tablet by mouth once daily 30 tablet 08/27/2022 Active lisinopriL (PRINIVIL,ZESTRI L) 5 mg tabletIndication s:Coronary artery disease involving [place] coronary artery of [place]reafski heart without angina pectoris Take 1 tablet by mouth once daily 30 tablet 08/27/2022 Active atorvastatin (LIPITOR) 80 mg tablet Take 1 tablet (80 mg total) by mouth daily 30 tablet 09/10/2022 Active Active Problems Problem Noted Date Diagnosed Date Coronary artery disease of n ative artery of andreafski heart with stable angina pectoris 06/08/2021 Essential hypertension 06/08/2021 Mixed hyperlipidemia 06/08/2021 Smoker 06/08/2021 Chronic bilateral low back pain without sciatica 06/08/2021 Paroxysmal atrial fibrillation 06/08/2021 Immunizations Immunization Administration Dates Next Due Influenza, Unspecified 06/08/2021(Deferr ed: Patient Refused),07/29/2020(Deferred: Patient Refused) Social History Tobacco Use Types Packs/Day Years Used Date Smoking Tobacco: Every Day Cigarettes 1 40 Smokeless Tobacco: Never Tobacco Cessation:Ready to Q uit: Yes; Counseling Given: No Comments:40 years PHQ-2 Answer Date Recorded PHQ-2 Total Score (If total score is 3 or more points, staff should administer the PHQ-9) 0 06/08/2021 Personal Safety Answer Date Recorded Getting School Help Needed Not on file 09/03 Sex and Gender Information Value Date Recorded Sex Assigned at Not on file 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 Gender Identity Not on file Sexual Orientation Not on file Last Filed Vital Signs Vital Sign Reading Time Taken Comments Blood Pressure 116/72 09/05/2021 2:05 PM PLUMBING INSTALLER Pulse 72 09/05/2021 2:05 PM PLUMBING INSTALLER Temperature 36.9 C (98.4 F) 06/08/2021 1:47 PM PLUMBING INSTALLER Respiratory Rate - - Oxygen Saturation 97% 09/05/2021 2:05 PM PLUMBING INSTALLER Inhaled Oxygen Concentration - - Weight 88 kg (194 lb) 09/05/2021 2:05 PM PLUMBING INSTALLER Height 175.3 cm (5' 9 ) 09/05/2021 2:05 PM PLUMBING INSTALLER Body Mass Index 28.65 09/05/2021 2:05 PM PLUMBING INSTALLER Plan of Treatment Not on file [place] [address] [address] [facility] Care Teams Technical Coordinator Relationship Specialty Start Date End Date Chandra Sanchez MD PCP - General Family Medicine 09/05/21
--- OUTSIDE RECORDS SUMMARY | 2024-11-03 10:22 | XMS_ITS | Encounter Summary ---
Author Organization [facility] Address [address] [place] [address] Care Team Providers Care Portfolio Mgr Name Role Phone Chandra Sanchez MD Unavailable [phone] Chandra Sanchez MD Primary Care Provider [phone] Encounter Details Date Type Department Care Team (Late st Contact Info) Description 02/13/2022 Lab Requisition [facility] [address] [place] [address] Ulises Beatty MD [address] [place] [id number] Social History Tobacco Use Types Packs/Day Years Used Date Smoking Tobacco: Every Day Cigarettes Alcohol Use Standard Drinks/Week Comments Yes 0 (1 standard drink = 0.6 oz pur e alcohol) Sex and Gender Information Value Date Recorded Sex Assigned at Not on file Gender Identity Not on file Sexual Orientation Not on file documented as of this encounter Plan of Treatment Not on file documented as of this encounter Procedures Procedure Name Priority Date/Time Associated Diagnosis Comments DERMATOPATHOLOGY Routine 02/13/2022 12:0 0 AM CDT documented in this encounter Results * DERMATOPATHOLOGY (02/13/2022 12:00 AM CDT) Case Report Dermatopathology Report Case: [id number] Authorizing Provider: Ulises Beatty MD Collected: 02/13/2022 12:00 AM Ordering Location: [facility] Received: 02/13/2022 04:54 PM Pathologist: Mayank Camp MD Specimen: Skin, right posterior neck 2 5:13 PM CDT DERMATOPATHOLOGY LABORATORY Final Diagnosis Specimen A. SKIN, right posterior neck: BENIGN VERRUCOUS KERATOSIS WITH ASSOCIATED CHANGES OF PRURIGO NODULARIS (L82.1) PRESENT AT MARGIN 2 5:13 PM CDT DERMATOPATHOLOGY LABORATORY Clinical History R/O Neoplasia vs. Scar Tissue. Please Check Margins. 2 5:13 PM CDT DERMATOPATHOLOGY LABORATORY Gross Description Specimen A: Received is one formalin filled container labeled with the patient's name and designated right posterior neck. The specimen consists of a shave biopsy measuring [id number] and it is inked. Jar 0. 2 5:13 PM T DERMATOPATHOLOGY LABORATORY Microscopic Description Specimen A. SKIN, right posterior neck: Sections show hyperkeratosis, papillomatosis, hypergranulosis, and acanthosis. These histological findings can be seen in a verruca vulgaris or a seborrheic keratosis. There is a dome-shaped portion of skin with psoriasiform epidermal hyperplasia, compact hyperkeratosis, and fibrosis of the papillary dermis associated with a superficial perivascular lymphohistiocytic infiltrate. This lesion is present at the margin of the specimen. 2 5:13 PM T DERMATOPATHOLOGY LABORATORY Disclaimer An external and internal positive and negative controls are appropriate for the histochemical, immunohistochemical and immunofluorescence stain(s) in this case (if any), except where stated explicitly. The performance characteristics of the stain(s) cited in this report were developed and its performance characteristic determined by the Dermatopathology Laboratory at [facility], directed by Dr. Latosha Camp. These tests need not be, and therefore are not, approved by the [place] Food and Drug Administration. The tests are used for clinical purposes. Billing Codes Specimen Charges Stain Charges 64794 1 2 5:13 PM CDT DERMATOPATHOLOGY LABORATORY Embedded Images 2 5:13 PM CDT DERMATOPATHOLOGY LABORATORY Pathology/Cytolog y TISSUE SPECIMEN FROM SKIN / Unknown 02/13/2022 02/13/2022 4:54 PM CDT Ulises Beatty MD LAB - PATHOLOGY/CYTO LOGY ORDERABLES DERMATOPATHOLOGY LABORATORY [facility] - Department of Dermatology [address], [address] [phone] documented in this encounter Visit Diagnoses Not on filedocumented in this encounter Care Teams Portfolio Mgr Relationship Specialty Start Date End Date Chandra Sanchez MD [address] [place] [address] PCP - Attributed-[employer] [place] 07/29/21 07/28/22 Chandra Sanchez MD [address] [place] [id number] PCP - General Family Medicine 03/16/22 documented as of this encounter
--- OUTSIDE RECORDS SUMMARY | 2024-11-03 10:22 | XMS_ITS | Clinical Summary ---
Author Organization [facility] [address] Address [address] [place] [address] Care Team Providers Care Industrial Safety And Health Specialist Name Role Phone Chandra Sanchez MD Primary Care Provider [phone] Allergies No known active allergies Medications aspirin 81 mg enteric coated tablet Take 81 mg by mouth daily Active metoprolol tartrate (LOPRESSOR) 25 mg immediate release tabletIndication s:Coronary artery disease involving [place] coronary artery of [place] heart without angina pectoris Take 1 tablet by mouth twice daily 180 tablet 06/11/2022 Active clopidogreL (PLAVIX) 75 mg tabletIndication s:Coronary artery disease involving [place] coronary artery of [place] heart without angina pectoris Take 1 tablet by mouth once daily 30 tablet 08/27/2022 Active lisinopriL (PRINIVIL,ZESTRI L) 5 mg tabletIndication s:Coronary artery disease involving [place] coronary artery of [place] heart without angina pectoris Take 1 tablet by mouth once daily 30 tablet 08/27/2022 Active atorvastatin (LIPITOR) 80 mg tablet Take 1 tablet (80 mg total) by mouth daily 30 tablet 09/10/2022 Active Active Problems Problem Noted Date Diagnosed Date Coronary artery disease of n ative artery of [place] heart with stable angina pectoris 06/08/2021 Essential hypertension 06/08/2021 Mixed hyperlipidemia 06/08/2021 Smoker 06/08/2021 Chronic bilateral low back pain without sciatica 06/08/2021 Paroxysmal atrial fibrillation 06/08/2021 Immunizations Immunization Administration Dates Next Due Influenza, Unspecified 06/08/2021(Deferr ed: Patient Refused),07/29/2020(Deferred: Patient Refused) Surgical History Surgery Date Site/Laterality Comments CARDIAC CATHETERIZATION CORONARY ANGIOPLASTY 05/15/2021 PCI to OM 2 Medical History Medical History Date Comments Elevated HDL History of heart attack 05/15/2021 Coronary artery disease Hypertriglyceridemia Family History Medical History Relation Name Comments Diabetes Father Brandon Heart attack Father Brandon CABG in late 40 's, lived to age 79 Heart disease Sister age 6 4 (heart disease and PNA) Relation Name Status Comments Father Brandon Alive Sister Social History Tobacco Use Types Packs/Day Years [...] on file 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 Gender Identity Not on file Sexual Orientation Not on file Obstetrics History Last Filed Vital Signs Vital Sign Reading Time Taken Comments Blood Pressure 116/72 09/05/2021 2:05 PM OILFIELD PLANT AND FIELD OPERATOR Pulse 72 09/05/2021 2:05 PM OILFIELD PLANT AND FIELD OPERATOR Temperature 36.9 C (98.4 F) 06/08/2021 1:47 PM OILFIELD PLANT AND FIELD OPERATOR Respiratory Rate - - Oxygen Saturation 97% 09/05/2021 2:05 PM OILFIELD PLANT AND FIELD OPERATOR Inhaled Oxygen Concentration - - Weight 88 kg (194 lb) 09/05/2021 2:05 PM OILFIELD PLANT AND FIELD OPERATOR Height 175.3 cm (5' 9 ) 09/05/2021 2:05 PM OILFIELD PLANT AND FIELD OPERATOR Body Mass Index 28.65 09/05/2021 2:05 PM OILFIELD PLANT AND FIELD OPERATOR Plan of Treatment Not on file Insurance [facility] [place] [id number] [facility] Care Teams Industrial Safety And Health Specialist Relationship Specialty Start Date End Date Chandra Sanchez MD PCP - General Family Medicine 09/05/21
--- OUTSIDE RECORDS SUMMARY | 2024-11-03 10:22 | XMS_ITS | Encounter Summary ---
Author Organization [facility] Address [address] [place] [address] Care Team Providers Care Crime Prevention Worker Name Role Phone Chandra Sanchez MD Primary Care Provider [phone] Sarahi Loomis Primary Care Provider [phone] Encounter Details Date Type Department Care Team (Late st Contact Info) Description 01/26/2022 Abstract [facility] [address] [address] [place] Social History Tobacco Use Types Packs/Day Years Used Date Smoking Tobacco: Every Day Cigarettes Smokeless Tobacco: Never Alcohol Use Standard Drinks/Week Comments Yes 0 (1 standard drink = 0.6 oz pur e alcohol) beer Sex and Gender Information Value Date Recorded Sex Assigned at Male 09/04/2024 10:56 AM BUDGET CLERK Legal Sex Male 2:41 PM BUDGET CLERK Gender Identity Not on file Sexual Orientation Not on file COVID-19 Exposure Response Date Recorded In the last 10 days, have yo u been in contact with someone who was confirmed or suspected to have Coronavirus/COVID-19? No / Unsure 01/26/2022 9:07 AM CDT documented as of this encounter Plan of Treatment Upcoming Encounters Date Type Department Care Team (Late st Contact Info) Description 11/13/2024 8:20 AM CDT Office Visit [facility] Medical Group Family & Internal Medicine - [address] [phone] Sarahi Loomis APNP [address] [place] [address] 02/26/2025 8:30 AM CDT Office Visit [facility] [address] [phone] Lucas Contreras MD [id number] [place] [address] documented as of this encounter Procedures Procedure Name Priority Date/Time Associated Diagnosis Comments COMPREHENSIVE METABOLIC PANEL Routine 07/21/2023 CBC, MANUAL DIFF Routine 07/21/2023 MAGNESIUM Routine 07/21/2023 COMPREHENSIVE METABOLIC PANEL Routine 02/11/2023 LIPID PANEL Routine 02/11/2023 CBC, MANUAL DIFF Routine 02/11/2023 THYROID STIM HORMONE TSH Routine 02/11/2023 PROTIME (OUTSIDE LAB) Routine 10/09/2022 CBC (OUTSIDE LAB) Routine 11/23/2021 COMPREHENSIVE METABOLIC PANEL Routine 11/23/2021 LIPID PANEL Routine 11/23/2021 documented in this encounter Results * (ABNORMAL) COMPREHENSIVE METABOLIC PANEL (07/21/2023) SODIUM S/P/B 137 GLUCOSE 126 mg/dL AST 34 BUN 16 CREATININE S/P/B 0.60(A) 0.7 - 1.3 CALCIUM S/P/B 9.8 POTASSIUM S/P/B 4.0 CHLORIDE S/P/B 105 ALT 44 GFR ESTIMATE >60 us Default History Genericprovider LABORATORY Edited Result - Final * CBC, MANUAL DIFF (07/21/2023) [facility] WBC 6.0 HGB 17.4 HCT 51.5 PLT 203 Result [facility] Default History Genericprovider LABORATORY Edited Result - Final * MAGNESIUM (07/21/2023) [facility] MAGNESIUM 2.0 Default History Genericprovider LABORATORY Edited Result - Final * COMPREHENSIVE METABOLIC PANEL (02/11/2023) [facility] SODIUM S/P/B 138 GLUCOSE 118 mg/dL AST 21 BUN 14 CREATININE S/P/B 0.70 0.7 - 1.3 CALCIUM S/P/B 9.3 POTASSIUM S/P/B 3.9 CHLORIDE S/P/B 103 ALT 23 GFR ESTIMATE >60 Result [facility] Genericprovider LABORATORY Final Result * LIPID PANEL (02/11/2023) [facility] CHOLESTEROL 111 TRIGLYCERIDES 141 HDL 54 DIRECT LDL 54 Result [facility] Genericprovider LABORATORY Final Result * CBC, MANUAL DIFF (02/11/2023) [facility] WBC 12.5 HGB 17.0 HCT 50.5 PLT 266 [facility] Result * THYROID STIM HORMONE, TSH (02/11/2023) [facility] TSH 1.030 Result [facility] Genericprovider LABORATORY Final Result * PROTIME (OUTSIDE LAB) (10/09/2022) [facility] INR Comment:error,deleted 10/09/2022 Result [facility] Genericprovider LAB-OUTSIDE/ABST RACTED Edited Result - Final * CBC (OUTSIDE LAB) (11/23/2021) [facility] WBC 9.7 HGB 18.5 HCT 53.3 PLT 275 11/23/2021 [facility] Abstract LAB-OUTSIDE/ABSTRACTED Final Result * LIPID PANEL (11/23/2021) CHOLESTEROL 145 HDL 32 TRIGLYCERIDES 360 DIRECT LDL 53 11/23/2021 us Doc [facility] Abstract LABORATORY Final Result * COMPREHENSIVE METABOLIC PANEL (11/23/2021) SODIUM S/P/B 136 POTASSIUM S/P/B 4.3 CO2 26 CHLORIDE S/P/B 101 GLUCOSE 123 mg/dL CALCIUM S/P/B 9.4 BUN 16 CREATININE S/P/B 0.70 0.7 - 1.3 EGFR NON-AFR. AMER. >60 <=90 ALKALINE PHOSPHATASE S/P/B 83 ALT 26 AST 26 BILIRUBIN TOTAL S/P/B 0.6 ALBUMIN S/P/B 4.6 3.5 - 5.0 TOTAL PROTEIN S/P/B 8.0 11/23/2021 us Doc [facility] Abstract LABORATORY Final Result documented in this encounter Visit Diagnoses Not on filedocumented in this encounter Care Teams Crime Prevention Worker Relationship Specialty Start Date End Date Chandra Sanchez MD [address] [address] PCP - General FAMILY PRACTICE 12/20/21 11/04/23 Sarahi Loomis APNP [facility] [place] [address] PCP - General NURSE PRACTITIONER 11/05/23 documented as of this encounter
--- OUTSIDE RECORDS SUMMARY | 2024-11-03 10:22 | XMS_ITS | Clinical Summary ---
Author Organization [facility] Address [address] [place] [address] Care Team Providers Care Weight Control Lecturer Name Role Phone Sarahi Loomis Primary Care Provider [phone] Allergies No known active allergies Medications nitroglycerin 0.[address] 1 tablet (0.4 mg total) under the tongue every 5 (five) minutes as needed for Chest Pain (maximum of 3 doses). 25 tablet 1 01/27/20 22 Active Additional Information Patient not taking.Reported on 09/04/2024 aspirin EC (ECOTRIN) 81 MG tablet Take 1 tablet (81 mg total) by mouth daily. Active Blood Pressure Monitor KitIndications: Coronary artery disease of [place] artery of [place] heart with stable angina pectoris 1 Application. by Does not apply route daily as needed. 1 kit 03/05/20 23 Active DULoxetine (CYMBALTA) 60 MG capsule Take 1 capsule (60 mg total) by mouth daily. 04/09/20 23 Active dicyclomine (BENTYL) 20 MG tabletIndicatio ns:Irritable bowel syndrome, unspecified type take 1 tablet by mouth every 6 hours as needed 120 tablet 2 05/01/20 24 Active pantoprazole EC (PROTONIX) 40 MG tablet Take 1 tablet by mouth once daily 90 tablet 1 05/11/20 24 Active atorvastatin (LIPITOR) 80 MG tabletIndicatio ns:Hyperlipidem ia, mixed Take 1 tablet (80 mg total) by mouth nightly at bedtime. 90 tablet 1 08/12/19 25 Active clopidogrel (PLAVIX) 75 MG tablet Take 1 tablet by mouth once daily 90 tablet 1 09/07/19 25 Active gabapentin (NEURONTIN) 300 MG capsuleIndicati ons:Peripheral neuropathy,Lumb ar spondylosis TAKE 3 CAPSULES BY MOUTH THREE TIMES DAILY 270 capsule 10/20/19 Active gabapentin (NEURONTIN) 300 MG capsuleIndicati ons:Peripheral neuropathy,Lumb ar spondylosis TAKE 3 CAPSULES BY MOUTH THREE TIMES DAILY 270 capsule 09/22/19 25 025 Discontinued Active Problems Problem Noted Date Diagnosed Date Hypotension due to drugs 04/12/2023 Non-STEMI (non-ST elevated m yocardial infarction) ([facility]) 10/12/2022 Coronary artery disease of n ative artery of [place] heart with stable angina pectoris 07/30/2022 Paroxysmal atrial fibrillation ([facility]) 07/30/2022 Coronary stent patent 01/26/2022 Lumbar spondylolysis 01/25/2022 Peripheral polyneuropathy 01/25/2022 Hyperlipidemia, mixed 01/25/2022 Encounters Date Type Department Care Team Description 10/16/2024 6:54 AM CDT - 10/16/2024 11:59 PM CDT Hospital Encounter [facility] [place] [address] Lucas Contreras MD Discharge Disposition: Home or Self Care (Routine Discharge) 10/16/2024 Travel 09/04/2024 9:00 AM SUPERVISOR SPRING UP Office Visit [facility] [phone] Maddy Chávez MD Cahill, Thomas B, MD Coronary Artery Disease (6mo) 09/04/2024 Travel 08/10/2024 Telephone [facility] Medical Group Family & Internal Medicine - [address] [address] Sarahi Loomis, APNP Results (CINDY [place]) from Last 3 Months Family History Medical History Relation Comments Heart Attack Father Open Heart Father Diverticulosis Mother Relation Status Comments Brother Alive Father Mother Alive Sister Alive Social History Tobacco Use Types Packs/Day Years Used Date Smoking Tobacco: Every Day Cigarettes 2 42.5 Started: 05/01/1982 Smokeless Tobacco: Never Comments:Provider to career technical 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 Alcohol Use Standard Drinks/Week Comments Yes 0 (1 standard drink = 0.6 oz pur e alcohol) qiana PHQ-2 Answer Date Recorded Patient Health Questionnaire-2 Score 0 11/01/2023 Sex and Gender Information Value Date Recorded Sex Assigned at Male 09/04/2024 10:56 AM SUPERVISOR SPRING UP Legal Sex Male 2:41 PM SUPERVISOR SPRING UP Gender Identity Not on file Sexual Orientation Not on file Last Filed Vital Signs Vital Sign Reading Time Taken Comments Blood Pressure 110/68 09/04/2024 9:13 AM SUPERVISOR SPRING UP Pulse 81 09/04/2024 9:13 AM SUPERVISOR SPRING UP Temperature 36.7 C (98.1 F) 05/01/2024 8:09 AM CDT Respiratory Rate 16 05/01/2024 8:09 AM CDT Oxygen Saturation 95% 09/04/2024 9:13 AM SUPERVISOR SPRING UP Inhaled Oxygen Concentration - - Weight 86.5 kg (190 lb 11.2 oz) 09/04/2024 9:13 AM SUPERVISOR SPRING UP Height 175.3 cm (5' 9 ) 09/04/2024 9:13 AM SUPERVISOR SPRING UP Body Mass Index 28.16 09/04/2024 9:13 AM SUPERVISOR SPRING UP Plan of Treatment Upcoming Encounters Date Type Department Care Team (Late st Contact Info) Description 11/13/2024 8:20 AM CDT Office Visit [facility] Medical Group Family & Internal Medicine - [address] [phone] Sarahi Loomis APNP [address] [place] [address] 02/26/2025 8:30 AM CDT Office Visit [facility] [phone] Lucas Contreras MD [address] [place] [address] [place] [phone] Health Maintenance Due Date Last Done Comments Annual Physical 02/25/1968 Hepatitis C 1983 ASCVD LDL 02/12/2024 02/11/2023, 11/23/2021 PHQ-2 (Physician Minto) 07/29/2024 11/01/2023 Colorectal Cancer Screening Colonoscopy (10 Years) 2025 Postponed from (Per Provider Recommendation) COVID-19 Vaccine (1 - 2023-2 5 season) 2025 Postponed from 03/29 (Patient Refused) DTaP, Tdap and Td Vaccines ( 1 - Tdap) 05/01/2025 Postponed from 02/24 (Patient Refused) Pneumococcal Vaccine: Pediatrics (0 to 5 Years) and At-Risk Patients (6 to 64 Years) (1 of 2 - PCV) 05/01/2025 Postponed from (Patient Refused) Zoster Vaccines (1 of 2) 05/01/2025 Pos tponed from 2015 (Patient Refused) Lung Cancer Screening 05/12/2025 Postpo pilar from 2015 (Patient Refused) Meningococcal B Vaccine Aged Out No l onger eligible based on patient's age to complete this topic Meningococcal Vaccine Aged Out No sindy cydni eligible based on patient's age to complete this topic RSV Immunizations Under 20 Months Aged Out No longer eligible b ased on patient's age to complete this topic Procedures Procedure Name Priority Date/Time Associated Diagnosis Comments USE ECHOCARDIOGRAM Routine 10/16/2024 7: 36 AM CDT Coronary artery disease of [place] artery of [place] heart with stable angina pectoris LIPID PANEL Routine 02/11/2023 from Last 3 Months or Most Recently Relevant to Health Maintenance Results * USE ECHOCARDIOGRAM (10/16/2024 7:36 AM CDT) Anatomical Region Laterality Modality Cardiac Echocardiogram 10/16/2024 7:02 AM CDT Narrative 10/17/2024 7:05 PM CDT Echocardiography Report Pat.Name: JACQUES ANIRUDH SMITH Ale.ID: [id number] .Date: 10/16/2024 : [id number] NITO Salazar EWDPROV EWDPROV Exam Time: 7:02:00 AM Study Type:ECHO WITH CARDIAC DOPPLER COMP Height: 69 in Weight: 190 lb BSA: 2.02 m2 Age: 7 1965,59Y Sex: M BP: 136/78 HR: 76 bpm Sonogrphr: Twyla Dye [facility] Pat. Stat.:Outpatient Reason for Study:CAD Procedures: 2D, M-mode, Doppler, Color Flow, The study quality is technically adequate. Strain. Race: W ++++++++++++++++++++++++++++++++++++ SUMMARY: ++++++++++++++++++++++++++++++++++++ The left ventricular size is mildly enlarged. Estimated left ventricular ejection fraction is 45-50%. Left ventricular diastolic function is abnormal (grade 1 - impaired relaxation). Mild global hypokinesis is noted. No significant valvular abnormalities. ++++++++++++++++++++++++++++++++++++ FINDINGS: ++++++++++++++++++++++++++++++++++++ LV: The left ventricular size is mildly enlarged. The left ventricular systolic function is mildly depressed. Estimated left ventricular ejection fraction is 45-50%. There is no left ventricular hypertrophy. Left ventricular diastolic function is abnormal (grade 1 - impaired relaxation). The LV Strain is -19.5%, normal. WM: Mild global hypokinesis is noted. RV: The right ventricle size is normal. The right ventricular function is normal. IVS: No evidence of ventricular septal defect. LA: The left atrial size is normal. RA: The right atrial size is normal. IAS: Atrial septum appears intact. NEEMA: No evidence of pericardial effusion. AO: Aorta is normal. PA: Estimated right atrial pressure of 3 mmHg. Unable to reliably quantitate pulmonary systolic pressure. SVn: Inferior vena cava is normal. Inferior vena cava shows >50% collapse with respiration consistent with normal right atrial pressure. AV: The aortic valve is trileaflet. No evidence of aortic valve stenosis. No evidence of aortic valve regurgitation. MV: Structurally normal mitral valve. Trace mitral regurgitation. No evidence of mitral stenosis. PV: No evidence of pulmonic valve stenosis. No evidence of pulmonic regurgitation. Pulmonic valve not well visualized. TV: Structurally normal tricuspid valve. No evidence of tricuspid regurgitation. No evidence of tricuspid valve stenosis. ++++++++++++++++++++++++++++++++++++ MEASUREMENTS: ++++++++++++++++++++++++++++++++++++ DOPPLER LVOT LVOTpkPG 3 mmHg LVOTmnPG 1 mmHg LVOTpkVel 81.1 cm/s (70-110) LVOT SV 85 ml LVOT TVI 18.8 cm Pulmonary Veins PVnpkVeld 29.9 cm/s PVnVs/Vd 1.6 PVnpkVels 47.9 cm/s AV Forward Flow AV TVI 26.8 cm AV pkPG 6 mmHg AV pkVel 122 cm/s (100-170) Area (TVI) 3.17 cm2 (3-5) AV mnPG 3 mmHg Area (Ayan) 3 cm2 (3-5) MV Forward Flow MV DeTm 211 msec MV pkE 77.1 cm/s (60-130) MV E/A 0.7 MV pkA 109 cm/s PV Forward Flow PV pkVel 91.8 cm/s (60-90)* PV AC 130 msec PV pkPG 3 mmHg Lat E' Lat e 12.4 cm/s Lat E/E' Lat E/e 6.2 Med E' Med e 8.92 cm/s Med E/E' Med E/e 8.6 Aortic Valve Aortic Valve Ar 1.57 Aortic Valve Ve 0.66 PV Antegrade Flow Acceleration Sl 517 cm/s2 Right Atrium Lujan's Disk 20 Right Ventricle Right Ventricle 14.5 cm/s 2D Left Ventricle LVIDd 5.81 cm (3.6-5.2)* LV ESV 89.3 ml LVIDs 4.85 cm (2.3-3.9)* LV ESV 87.2 ml LngAxd 9.49 cm LVESV BP 89.8 ml LngAxd 9.53 cm LV EF 46.2 % LV EDV 166 ml LV EF 46.2 % LV EDV 162 ml LV EF BP 45.2 % LVEDV BP 164 ml LV SV 76.7 ml LngAxs 8.49 cm LV SV 74.8 ml LngAxs 8.17 cm LV SV BP 74.2 ml LVPW LVPWd 0.781 cm Ventricular Septum IVSd 0.876 cm Left Atrium LA VOLBP 60.7 ml Aorta Ao Rtd 3.3 cm (zsc 1.3) Ao Asc 3.4 cm (zsc 2.9)* LVOT LVOT 2.4 cm LVOTArea 4.52 cm2 Ratios IVS LA Biplane LAVol I BP 30 ml/m2 RA Single Plane Right Atrium MO 12.3 mm Right Atrium Sy 39.4 ml Right Atrium Sy 46.8 mm Right Atrium Sy 19.5 ml/m2 Right Atrium Sy 14.8 cm2 Right Ventricle Right Ventricle 40.8 mm Right Ventricle 29.2 mm Major [place] 79.5 mm MMODE TA Tricuspid Annul 30.6 mm <Electronic Signature> 10/17/2024 07:05 PM Gloria Warner M.D. Procedure Note Gloria Warner MD - 10/17/2024 Echocardiography Report Pat.Name: ANIRUDH OROZCO Pat.ID: [id number] St.Date: 10/16/2024 Refer.MD: [id number] NITO Salazar EWDPROV EWDPROV Exam Time: 7:02:00 AM Study Type:ECHO WITH CARDIAC DOPPLER COMP Height: 69 in Weight: 190 lb BSA: 2.02 m2 Age: 7 1965,59Y Sex: M BP: 136/78 HR: 76 bpm Sonogrphr: Twyla Dye [facility] Pat. Stat.:Outpatient Reason for Study:CAD Procedures: 2D, M-mode, Doppler, Color Flow, The study quality is technically adequate. Strain. Race: W ++++++++++++++++++++++++++++++++++++ SUMMARY: ++++++++++++++++++++++++++++++++++++ The left ventricular size is mildly enlarged. Estimated left ventricular ejection fraction is 45-50%. Left ventricular diastolic function is abnormal (grade 1 - impaired relaxation). Mild global hypokinesis is noted. No significant valvular abnormalities. ++++++++++++++++++++++++++++++++++++ FINDINGS: ++++++++++++++++++++++++++++++++++++ LV: The left ventricular size is mildly enlarged. The left ventricular systolic function is mildly depressed. Estimated left ventricular ejection fraction is 45-50%. There is no left ventricular hypertrophy. Left ventricular diastolic function is abnormal (grade 1 - impaired relaxation). The LV Strain is -19.5%, normal. WM: Mild global hypokinesis is noted. RV: The right ventricle size is normal. The right ventricular function is normal. IVS: No evidence of ventricular septal defect. LA: The left atrial size is normal. RA: The right atrial size is normal. IAS: Atrial septum appears intact. NEEMA: No evidence of pericardial effusion. AO: Aorta is normal. PA: Estimated right atrial pressure of 3 mmHg. Unable to reliably quantitate pulmonary systolic pressure. SVn: Inferior vena cava is normal. Inferior vena cava shows >50% collapse with respiration consistent with normal right atrial pressure. AV: The aortic valve is trileaflet. No evidence of aortic valve stenosis. No evidence of aortic valve regurgitation. MV: Structurally normal mitral valve. Trace mitral regurgitation. No evidence of mitral stenosis. PV: No evidence of pulmonic valve stenosis. No evidence of pulmonic regurgitation. Pulmonic valve not well visualized. TV: Structurally normal tricuspid valve. No evidence of tricuspid regurgitation. No evidence of tricuspid valve stenosis. ++++++++++++++++++++++++++++++++++++ MEASUREMENTS: ++++++++++++++++++++++++++++++++++++ DOPPLER LVOT LVOTpkPG 3 mmHg LVOTmnPG 1 mmHg LVOTpkVel 81.1 cm/s (70-110) LVOT SV 85 ml LVOT TVI 18.8 cm Pulmonary Veins PVnpkVeld 29.9 cm/s PVnVs/Vd 1.6 PVnpkVels 47.9 cm/s AV Forward Flow AV TVI 26.8 cm AV pkPG 6 mmHg AV pkVel 122 cm/s (100-170) Area (TVI) 3.17 cm2 (3-5) AV mnPG 3 mmHg Area (Ayan) 3 cm2 (3-5) MV Forward Flow MV DeTm 211 msec MV pkE 77.1 cm/s (60-130) MV E/A 0.7 MV pkA 109 cm/s PV Forward Flow PV pkVel 91.8 cm/s (60-90)* PV AC 130 msec PV pkPG 3 mmHg Lat E' Lat e 12.4 cm/s Lat E/E' Lat E/e 6.2 Med E' Med e 8.92 cm/s Med E/E' Med E/e 8.6 Aortic Valve Aortic Valve Ar 1.57 Aortic Valve Ve 0.66 PV Antegrade Flow Acceleration Sl 517 cm/s2 Right Atrium Lujan's Disk 20 Right Ventricle Right Ventricle 14.5 cm/s 2D Left Ventricle LVIDd 5.81 cm (3.6-5.2)* LV ESV 89.3 ml LVIDs 4.85 cm (2.3-3.9)* LV ESV 87.2 ml LngAxd 9.49 cm LVESV BP 89.8 ml LngAxd 9.53 cm LV EF 46.2 % LV EDV 166 ml LV EF 46.2 % LV EDV 162 ml LV EF BP 45.2 % LVEDV BP 164 ml LV SV 76.7 ml LngAxs 8.49 cm LV SV 74.8 ml LngAxs 8.17 cm LV SV BP 74.2 ml LVPW LVPWd 0.781 cm Ventricular Septum IVSd 0.876 cm Left Atrium LA VOLBP 60.7 ml Aorta Ao Rtd 3.3 cm (zsc 1.3) Ao Asc 3.4 cm (zsc 2.9)* LVOT LVOT 2.4 cm LVOTArea 4.52 cm2 Ratios IVS LA Biplane LAVol I BP 30 ml/m2 RA Single Plane Right Atrium MO 12.3 mm Right Atrium Sy 39.4 ml Right Atrium Sy 46.8 mm Right Atrium Sy 19.5 ml/m2 Right Atrium Sy 14.8 cm2 Right Ventricle Right Ventricle 40.8 mm Right Ventricle 29.2 mm Major Har[place]well 79.5 mm MMODE TA Tricuspid Annul 30.6 mm <Electronic Signature> 10/17/2024 07:05 PM Glroia Warner M.D. us Lucas Contreras MD ECHO Final Result * LIPID PANEL (02/11/2023) CHOLESTEROL 111 TRIGLYCERIDES 141 HDL 54 DIRECT LDL 54 us Default History Genericprovider LABORATORY Final Result from Last 3 Months or Most Recently Relevant to Health Maintenance Insurance [id number] Care Teams Weight Control Lecturer Relationship Specialty Start Date End Date Sarahi Loomis APNP [address] [place] [id number] PCP - General NURSE PRACTITIONER 11/05/23
--- OUTSIDE RECORDS SUMMARY | 2024-11-03 10:22 | XMS_ITS | Clinical Summary ---
Author Organization [facility] Address [address] [place] [address] Care Team Providers Care Freight Elevator Erector Name Role Phone Chandra Sanchez MD Primary Care Provider [phone] Source Comments [facility],non-owned Affiliates and Associated Physician Practices is amultiple site organization consisting of ambulatory clinics and hospital sitesin [place], [place], [place] and [place]. This disclosure is being madepursuant to the Care Everywhere program and may not contain all information available regarding this patient. Last updated 18.[facility] Medications * Be aware that medications may not be up to date on this document. Alwaysverify current medications with the patient. Medication Sig Dispensed Refills Start Date End Date Status aspirin EC (Ecotrin) 81 MG tablet Take 81 mg by mouth once daily Active atorvastatin (Lipitor) 40 MG tablet Take 80 mg by mouth once daily 06/01/2021 Active clopidogrel (plaVIX) 75 MG tablet Take 75 mg by mouth once daily 06/01/2021 Active DULoxetine (Cymbalta) 30 MG capsule Take 30 mg by mouth once daily 01/05/2022 Active finasteride (Proscar) 5 MG tablet 03/03/2022 Active gabapentin (Neurontin) 300 MG capsule Take 1,200 mg by mouth 3 times daily 12/20/2021 Active lisinopril (Prinivil; Zestril) 5 MG tablet Take 5 mg by mouth once daily 06/01/2021 Active meloxicam (Mobic) 15 MG tablet Take 15 mg by mouth once daily 01/05/2022 Active methocarbamol (Robaxin) 500 MG tablet TAKE 1 TABLET BY MOUTH 1 TO 2 TIMES DAILY NEEDED 02/23/2022 Active metoprolol tartrate IR (Lopressor) 25 MG tablet Take 25 mg by mouth 2 times daily 03/06/2022 Active traMADol (Ultram) 50 MG tablet TAKE 2 TABLETS BY MOUTH EVERY 8 TO 12 HOURS NEEDED 01/05/2022 Active nitroGLYCERIN (Nitrostat) 0.4 MG tablet Dissolve 0.4 mg under the tongue every 5 minutes as needed 01/26/2022 Active Active Problems Problem Noted Date Diagnosed Date Hypertriglyceridemia 07/04/2005 ED (erectile dysfunction) 06/06/2005 Palpitations 06/06/2005 GERD (gastroesophageal reflux disease) 0 Anxiety 12/15/1999 Social History Tobacco Use Types Packs/Day Years [...] Sign Reading Time Taken Comments Blood Pressure - - Pulse - - Temperature - - Respiratory Rate - - Oxygen Saturation - - Inhaled Oxygen Concentration - - Weight 84.8 kg (187 lb) 03/16/2022 11:22 AM CDT Height 175.3 cm (5' 9 ) 03/16/2022 11:22 AM CDT Body Mass Index 27.62 03/16/2022 11:22 AM CDT Plan of Treatment Health Maintenance Due Date Last Done Comments COLOGUARD (AGES 45-75) - COL ON CA SCREENING 1965 COLON MONITORING 1965 COLONOSCOPY - COLON CA SCREENING 1965 CT COLONOGRAPHY - COLON CA SCREENING 1965 Colorectal Cancer Screening 1965 FIT - COLON CA SCREENING 1965 FLEX SIG - COLON CA SCREENING 1965 HIV SCREENING 02/25/1980 HEPATITIS C SCREENING 02/20/1983 DTAP/TDAP/TD VACCINES (1 - Tdap) 02/25/1984 HEPATITIS B VACCINE (1 of 3 - 19+ 3-dose series) 02/25/1984 PNEUMOCOCCAL VACCINE 50+ (1 of 2 - PCV) 02/25/1984 PNEUMOCOCCAL VACCINE (1 of 2 - PCV) 02/25/1984 ZOSTER VACCINE (1 of 2) 2015 SCREENING FOR DIABETES 03/16/2022 COVID-19 VACCINE (1 - 2023-2 5 season) 2024 DEPRESSION SCREENING 07/29/2024 INFLUENZA VACCINE (Season Ended) 2025 HIB VACCINE Aged Out No longer eligi ble based on patient's age to complete this topic HPV VACCINE Aged Out No longer eligi ble based on patient's age to complete this topic MENINGOCOCCAL (Group B) VACC INE SHARED DECISION-MAKING Aged Out No longer eligibl e based on patient's age to complete this topic MENINGOCOCCAL GROUPS A/C/Y/W VACCINE Aged Out No longer eligible b ased on patient's age to complete this topic Care Teams Freight Elevator Erector Relationship Specialty Start Date End Date Chandra Sanchez MD [address] [place] [address] PCP - General Family Medicine 03/16/22
== END 2024-11-03 09:30 | disposition home or self-care (01) ==
PROVIDERS: PCP Registered Nurse; Visit Provider Registered Nurse
DX: I70.203 Unspecified atherosclerosis of native arteries of extremities, bilateral legs (principal); R09.89 Other specified symptoms and signs involving the circulatory and respiratory systems; F17.200 Nicotine dependence, unspecified, uncomplicated
CPT/HCPCS: 93925

== ENCOUNTER 2025-05-05 14:14 | Emergency (ER) | payer MEDICARE, SELFPAY ==
[2025-05-05] VITALS (23 sets, daily range): BP systolic 130–149; BP diastolic 75–96; PULSE 60–75; RESP 10–20; O2SAT 92–99
--- NOTE | ~2025-05-05 | XR_ITS ---
EXAMINATION: XR chest 2V, 05/05/2025 14:40 CDT HISTORY: CHEST PAIN COMPARISON: No comparisons available. Technique: 2 views obtained. Findings: The lungs are clear, no effusion. No pneumothorax. Heart is normal size. Mediastinal and hilar contours are within normal limits. Bony thorax no acute abnormality. Impression: No acute cardiopulmonary abnormality. Reviewed, dictated and finalized at location P. Impression: No acute cardiopulmonary abnormality.
--- NOTE | ~2025-05-05 | CT_ITS ---
EXAMINATION: CTA chest PE protocol, 05/05/2025 15:38 CDT HISTORY: chest pressure and SOB COMPARISON: No comparisons available. TECHNIQUE: CTA examination is obtained with contrast CTA examination technique is performed with arterial phase of contrast-enhancement. 3-D reconstruction with thin MIP axial and MPR coronal imaging is provided Isovue 300, 92cc injected IV. One or more of the following dose reduction techniques were used: automated exposure control, adjustment of the mA and/or kV according to patient size, use of iterative reconstruction technique. FINDINGS: No significant coronary calcification is present ([id number]) LUNGS: The contrast bolus is adequate, there is no pulmonary embolism identified. No tracheomalacia. No bronchiectasis. Minimal emphysematous changes. Minimal pulmonary fibrotic changes. Apical scarring bilaterally. No honeycombing identified. There are basilar areas of linear atelectasis. There are scattered subtle 4 mm micronodules, 9 respiration twelve-month follow-up recommended. HEART AND PERICARDIUM: Within normal limits. AORTA: Normal caliber aorta.. PULMONARY ARTERIES: No pulmonary embolism ADENOPATHY/MEDIASTINUM: None. LIMITED VIEWS OF THE ABDOMEN: Thickening of the esophagus may represent underlying esophagitis. Left kidney simple appearing renal cyst 2 x 2 cm. OSSEOUS STRUCTURES: No sclerotic or lytic lesions. No acute fractures identified. OVERLYING SOFT TISSUES: Unremarkable. THYROID: The thyroid is unremarkable. IMPRESSION: 1. Negative for pulmonary embolism. Incidental findings above. Reviewed, dictated and finalized at location P.
--- NOTE | 2025-05-05 14:19 | ECG_ITS ---
Test Date: 2025-05-05 14:24:23 Measurements Intervals [place] Rate: 68 P: 62 MS: 153 QRS: 48 QRSD: 98 T: 10 QT: 394 QTc: 422 Interpretive Statements SINUS RHYTHM WITH VENTRICULAR COUPLET INFERIOR INFARCT, AGE INDETERMINATE BASELINE ARTIFACT- I, II, III, AVR, AVL, AVF ABNORMAL ECG No previous ECG available for comparison Electronically Signed On 05-05-2025 14:39:23 CDT by Tahir Roe D.O.
[2025-05-05 14:42] LABS: Hematocrit 52.3 % (42.0-52.0); Hemoglobin 18.3 g/dL (14.0-18.0); Immature Granulocyte Percent A 0.5 % (0-0.5); Lymphocytes Absolute Auto 2.17 K/mm3 (0.9-3.2); Mean Corpuscular HGB Conc 35.0 g/dl (32-36); Mean Corpuscular Hemoglobin 31.4 pg (26-34); Mean Corpuscular Volume 89.7 fl (80-100); Nucleated Red Blood Cells Absolute Auto 0.000 K/mm3 (0.0-0.012); Nucleated Red Blood Cells Perc 0.0 % (0.0-0.2); Platelet Count Result 279 k/mm3 (150-375); Red Blood Count 5.83 M/mm3 (4.6-6.20); White Blood Count 7.9 K/mm3 (4.5-10.0)
[2025-05-05 14:51] LABS: Anion Gap 10 mmol/L (4-12); Blood Urea Nitrogen 19 mg/dL (9-20); Carbon Dioxide 20 mmol/L (22-30); Chloride 106 mmol/L (98-107); Estimated Glomerular Filt Rate > 60; Potassium 3.8 mmol/L (3.4-5.0); Sodium 136 mmol/L (137-145)
[2025-05-05 14:52] LABS: Alanine Aminotransferase 21 U/L (6-50); Albumin Level 4.5 g/dL (3.5-5.1); Alkaline Phosphatase 72 U/L (38-126); Aspartate Amino Transferase 23 U/L (17-59); Bilirubin,Total 1.3 mg/dL (0.2-1.3); Calcium 9.5 mg/dL (8.4-10.2); Glucose 128 mg/dL (65-110); Lipase 100 U/L (23-300); Total Protein 7.7 g/dL (6.3-8.2)
[2025-05-05 15:04] LABS: Troponin I < 0.012 ng/mL (0.000-0.034)
[2025-05-05 15:05] LABS: INR 1.0; Prothrombin Time 13.8 Seconds (11.1-14.7)
[2025-05-05 15:06] LABS: Partial Thromboplastin Time 28.6 Seconds (22.3-36.8)
[2025-05-05] MEDS: ASPIRIN 81 MG CHEWABLE TABLET 324 MG PO (15:07)
--- NOTE | 2025-05-05 15:31 | ED_ITS ---
HPI - General Adult General Chief complaint: Chest Pain Stated complaint: chest pain Time Seen by Provider: 05/05/25 14:56 History of Present Illness HPI narrative: 60-year-old male present to the emergency department for evaluation for intermittent chest pressure and generalized weakness since Saturday. 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 Patient states that evening he started having some increased chest pressure diaphoresis. Patient states since Saturday he has had decreased p.o. intake intermittent nausea and some intermittent chest pressure. Patient states today the chest pressure was persistent and attempted to have follow-up with his primary care physician and felt that his symptoms were worsening. Patient does have a prior history of AFib. Patient does have history of coronary artery disease did have a stent placed in 2020 and a 2nd stent placed in 2022. Related Data Home Medications ?Medication ?Instructions ?Recorded ?Confirmed ?Last Taken ?Type pantoprazole 40 mg tablet,delayed 40 mg PO QAM 3 07/26/23 Unknown History release ticagrelor 90 mg tablet 90 mg PO Q12H 10/12/2207/26 Unknown History Allergies Allergy/AdvReac Type Severity Reaction Status Date / Time No Known Allergies Allergy Verified 05/05/25 15:07 Review of Systems 2 Review of Systems: All systems reviewed & are unremarkable except as noted in HPI and below PMFSH Past Medical History Medical History Abdominal bloating BMI 26.0-26.9,adult BMI 27.0-27.9,adult BMI 28.0-28.9,adult BMI 29.0-29.9,adult BPH associated with nocturia Coronary artery disease Diaphoresis Essential hypertension Healthy adult male Lumbar spondylosis Neuropathy Screening for prostate cancer Surgical History Surgical History H/O rotator cuff surgery History of coronary artery stent placement Family History Family History Sibling Patient's sister is in good health Patient's brother is in good health Family history of hepatitis Father Patient's father is Heart disease Mother No problems noted. Social History Social History Smoking packs per day: 2 Smoking cigarettes per day: 40.0 Years smoked: 40 Smoking pack-years: 80.00 Smoking status: Current every day smoker (2 ppd) Tobacco type: cigarettes Second hand tobacco smoke exposure: Yes Alcohol intake: current Drinks per week: 1 Substance use: current Substance use type: marijuana Do You Feel Safe in your Home?: Yes Lack of Transportation: No Lack of Food: Never True Current Housing: I Have Housing Concerned About Future Housing: No Difficulty Paying Gas/Electric Bills: No Difficulty Paying for Meds: No Currently Unemployed: No Education: High School Diploma/GED Difficulty w/ Childcare or Family Care: No Living arrangements: alone Occupation/Education: unemployed 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 HEAD: normocephalic, atraumatic. EYES: PERRLA/EOMI, conjunctivae clear. NOSE: Normal no drainage EARS:TMS clear with good light reflex. THROAT: Pharynx clear, no exudate. NECK: Supple. No adenopathy, no masses. RESPIRATORY: Airway patent, respirations nonlabored. Clear to auscultation bilaterally, no rales, rhonchi, wheezing. CARDIOVASCULAR: Regular rate and rhythm without murmurs rubs or gallops. ABDOMINAL: Soft, nontender, nondistended, normal bowel sounds MUSCULOSKELETAL: Moves all extremities. Strength/ROM intact, No edema, No calf tenderness. NEURO: Alert. Cranial nerves II through XII intact. Good gait. Good coordination SKIN: Warm, dry. Normal Color Course Vital Signs Vital signs: Vital Signs Pulse Oximetry 98 05/05/25 14:59 Oxygen Delivery Room Air 05/05/25 14:59 Pulse Rate 75 05/05/25 18:31 Respiratory Rate 20 05/05/25 18:31 Blood Pressure 131/83 05/05/25 18:31 Pulse Oximetry 98 05/05/25 18:45 Oxygen Delivery Room Air 05/05/25 14:59 Medical Decision Making MDM Narrative Medical decision making narrative: 60-year-old male presents emergency department for evaluation for intermittent chest pressure generalized weakness. Patient was afebrile, patient has no elevated leukocytosis and hemoglobin of 18.3. Patient has no acute abnormalities on his CMP with a negative initial troponin lipase of 100. Chest x-ray shows no acute cardiopulmonary abnormality. Patient had negative serial troponins. Patient was updated results of his workup. Patient was offered admission for further cardiac workup but patient prefers to have outpatient follow-up. Patient also states that he has no chest pressure shortness chest pain and does feel improved. Vital Signs Vital Signs: Vital Signs Pulse Oximetry 98 05/05/25 14:59 Oxygen Delivery Room Air 05/05/25 14:59 Pulse Rate 75 05/05/25 18:31 Respiratory Rate 20 05/05/25 18:31 Blood Pressure 131/83 05/05/25 18:31 Pulse Oximetry 98 05/05/25 18:45 Oxygen Delivery Room Air 05/05/25 14:59 Lab Data Lab results reviewed: Yes I reviewed the patient's lab results. 05/05/25 14:28 05/05/25 14:28 Labs: Lab Results 05/05/25 05/05/25 Range/Units 14:28 17:33 WBC 7.9 (4.5-10.0) K/mm3 RBC 5.83 (4.6-6.20) M/mm3 Hgb 18.3 H (14.0-18.0) g/dL Hct 52.3 H (42.0-52.0) % MCV 89.7 (80-100) fl MCH 31.4 (26-34) pg MCHC 35.0 (32-36) g/dl RDW 13.2 (11.5-14.5) % Plt Count 279 (150-375) k/mm3 MPV 9.8 (7.4-10.4) fl Immature Gran % (Auto) 0.5 (0-0.5) % Neut % (Auto) 60.4 (45.5-73.1) % Lymph % (Auto) 27.4 (18.3-44.2) % [place] % (Auto) 10.3 H (2.6-8.5) % Eos % (Auto) 1.0 (0-4.4) % Baso % (Auto) 0.4 (0.2-1.2) % Lymph # (Auto) 2.17 (0.9-3.2) K/mm3 [place] # (Auto) 0.8 H (0.1-0.6) K/mm3 Eos # (Auto) 0.1 (0-0.3) K/mm3 Baso # (Auto) 0.0 (0.0-0.1) K/mm3 Abs Immat Gran (auto) 0.04 H (0.00-0.031) K/mm3 Absolute Neuts (auto) 4.8 (1.3-6.7) K/mm3 Absolute Nucleated RBC 0.000 (0.0-0.012) K/mm3 Nucleated RBC % 0.0 (0.0-0.2) % PT 13.8 (11.1-14.7) Seconds INR 1.0 APTT 28.6 (22.3-36.8) Seconds Sodium 136 L (137-145) mmol/L Potassium 3.8 (3.4-5.0) mmol/L Chloride 106 (98-107) mmol/L Carbon Dioxide 20 L (22-30) mmol/L Anion Gap 10 (4-12) mmol/L BUN 19 (9-20) mg/dL Creatinine 0.80 (0.7-1.3) mg/dL Estim Creat Clear Calc Not Reportable Estimated GFR > 60 (59 - ) Glucose 128 H (65-110) mg/dL Calcium 9.5 (8.4-10.2) mg/dL Total Bilirubin 1.3 (0.2-1.3) mg/dL AST 23 (17-59) U/L ALT 21 (6-50) U/L Alkaline Phosphatase 72 (38-126) U/L Troponin I < 0.012 < 0.012 (0.000-0.034) ng/mL Total Protein 7.7 (6.3-8.2) g/dL Albumin 4.5 (3.5-5.1) g/dL Lipase 100 (23-300) U/L Imaging Data My impression: Chest x-ray: No acute cardiopulmonary abnormality ECG Data EKG #1: EKG Interpretation: normal rate, sinus rhythm, no ectopy, non-specific ST changes, normal QRS, normal QT and no acute changes Discharge Plan Discharge Clinical Impression: Chest pain Patient Disposition: Home Condition: Stable Instructions: Antibiotic Form, Chest Pain (ED) Additional Instructions: You were offered admission for further cardiac workup but you preferred to have follow-up with your primary care physician. If you have any worsening symptoms then please call or return to the emergency department. Patient Language: [place] Prescriptions: No Action metoprolol succinate 25 mg tablet extended release 24 hr 12.5 mg PO DAILY Qty: 90 0RF pantoprazole 40 mg tablet,delayed release (DR/EC) 40 mg PO QAM ticagrelor 90 mg tablet 90 mg PO Q12H pantoprazole [Protonix] 20 mg tablet,delayed release (DR/EC) 20 mg PO HS 42 Days Qty: 42 0RF dicyclomine 20 mg tablet 20 mg PO TID PRN (Reason: Abdominal Discomfort) Qty: 20 0RF ondansetron 4 mg tablet,disintegrating 4 mg PO Q8H PRN (Reason: nausea and vomiting) Qty: 15 0RF aspirin 81 mg Tablet,Delayed Release (Dr/Ec) 81 mg PO QAM Qty: 100 0RF gabapentin 300 mg capsule 900 mg PO TID Qty: 270 1RF atorvastatin 80 mg tablet See Rx Instructions .ROUTE .COMPLEX Qty: 90 0RF Dose Instruction: Take 1 tablet by mouth once daily Rx Instructions: Take 1 tablet by mouth once daily duloxetine 60 mg capsule,delayed release(DR/EC) 60 mg PO DAILY Qty: 90 1RF Follow-up/Referrals: Ebonie,ISHAN Mcclain [Primary Care Provider] Quality HEART score for chest pain patients History: slightly suspicious ECG: normal Age: > 45 and < 65 years Risk factors: 1 or 2 risk factors Troponin: < or = to 1x normal limit Heart score: 2
--- NOTE | 2025-05-05 17:32 | ECG_ITS ---
Test Date: 2025-05-05 17:34:23 Measurements Intervals [place] Rate: 64 P: 62 MD: 162 QRS: 61 QRSD: 102 T: 24 QT: 399 QTc: 412 Interpretive Statements SINUS RHYTHM POSSIBLE LEFT ATRIAL ENLARGEMENT CONSIDER INFERIOR INFARCT, AGE INDETERMINATE BASELINE ARTIFACT- I, II, III, AVR, AVL ABNORMAL ECG Compared to ECG 05/05/2025 14:24:23 Ventricular premature complex(es) no longer present Electronically Signed On 05-05-2025 17:41:03 CDT by Tahir Roe D.O.
[2025-05-05 17:59] LABS: Troponin I < 0.012 ng/mL (0.000-0.034)
== END 2025-05-05 19:03 | disposition home or self-care (01) ==
PROVIDERS: Emergency Medicine; Emergency Provider Emergency Medicine; PCP Registered Nurse
DX: R07.9 Chest pain, unspecified (principal); I25.10 Atherosclerotic heart disease of native coronary artery without angina pectoris; Z95.5 Presence of coronary angioplasty implant and graft; Z79.01 Long term (current) use of anticoagulants; F17.210 Nicotine dependence, cigarettes, uncomplicated
CPT/HCPCS: 36415; 71046; 71275; 80053; 83690; 84484; 85025; 85610; 85730; 93005; 99284; A9270; Q9967

== ENCOUNTER 2025-05-21 09:38 | Inpatient (IN) | payer MEDICARE, SELFPAY ==
[2025-05-21] VITALS (15 sets, daily range): BP systolic 110–159; BP diastolic 61–94; PULSE 60–81; RESP 14–20; TEMP 36.4–36.6; O2SAT 95–100; BMI 28.1
--- NOTE | ~2025-05-21 | XR_ITS ---
EXAMINATION: XR chest 2V, 05/21/2025 10:22 CDT HISTORY: CP COMPARISON: No comparisons available. Technique: 2 views obtained. Findings: The lungs are clear, no effusion. No pneumothorax. Heart is normal size. Mediastinal and hilar contours are within normal limits. Bony thorax no acute abnormality. Impression: No acute cardiopulmonary abnormality. Reviewed, dictated and finalized at location P. Impression: No acute cardiopulmonary abnormality.
--- NOTE | 2025-05-21 09:42 | ECG_ITS ---
Test Date: 2025-05-21 09:42:43 Measurements Intervals [place] Rate: 64 P: 56 [place]: 161 QRS: 53 QRSD: 100 T: 32 QT: 392 QTc: 407 Interpretive Statements SINUS RHYTHM POSSIBLE LEFT ATRIAL ENLARGEMENT CONSIDER INFERIOR INFARCT, AGE INDETERMINATE BASELINE ARTIFACT- I, II, AVR, AVL, AVF ABNORMAL ECG Compared to ECG 05/05/2025 17:34:23 No significant changes Electronically Signed On 05-21-2025 10:32:41 CDT by Tahir Roe D.O.
[2025-05-21] MEDS: ASPIRIN 81 MG CHEWABLE TABLET 324 MG PO (09:54)
[2025-05-21 09:55] LABS: Hematocrit 50.8 % (42.0-52.0); Hemoglobin 17.2 g/dL (14.0-18.0); Immature Granulocyte Percent A 0.4 % (0-0.5); Lymphocytes Absolute Auto 1.73 K/mm3 (0.9-3.2); Mean Corpuscular HGB Conc 33.9 g/dl (32-36); Mean Corpuscular Hemoglobin 30.9 pg (26-34); Mean Corpuscular Volume 91.4 fl (80-100); Nucleated Red Blood Cells Absolute Auto 0.000 K/mm3 (0.0-0.012); Nucleated Red Blood Cells Perc 0.0 % (0.0-0.2); Platelet Count Result 251 k/mm3 (150-375); Red Blood Count 5.56 M/mm3 (4.6-6.20); White Blood Count 7.5 K/mm3 (4.5-10.0)
[2025-05-21 10:06] LABS: INR 0.9; Prothrombin Time 12.7 Seconds (11.1-14.7)
[2025-05-21 10:07] LABS: Partial Thromboplastin Time 26.7 Seconds (22.3-36.8)
[2025-05-21 10:21] LABS: Alanine Aminotransferase 23 U/L (6-50); Albumin Level 4.5 g/dL (3.5-5.1); Alkaline Phosphatase 79 U/L (38-126); Anion Gap 7 mmol/L (4-12); Aspartate Amino Transferase 23 U/L (17-59); Bilirubin,Total 0.7 mg/dL (0.2-1.3); Blood Urea Nitrogen 15 mg/dL (9-20); Calcium 9.4 mg/dL (8.4-10.2); Carbon Dioxide 30 mmol/L (22-30); Chloride 100 mmol/L (98-107); Estimated CRCL calculation 82 ml/min; Estimated Glomerular Filt Rate > 60; Glucose 119 mg/dL (65-110); Lipase 91 U/L (23-300); Potassium 3.9 mmol/L (3.4-5.0); Sodium 137 mmol/L (137-145); Total Protein 7.5 g/dL (6.3-8.2)
--- OUTSIDE RECORDS SUMMARY | 2025-05-21 10:21 | XMS_ITS | Clinical Summary ---
Author Organization [facility] [place] [address] Address [address] [place] [address] Care Team Providers Care Spool Worker Name Role Phone Chandra Sanchez MD Primary Care Provider [phone] Allergies No known active allergies Medications aspirin 81 mg enteric coated tablet Take 81 mg by mouth daily Active metoprolol tartrate (LOPRESSOR) 25 mg immediate release tabletIndication s:Coronary artery disease involving rampart coronary artery of rampart heart without angina pectoris Take 1 tablet by mouth twice daily 180 tablet 06/11/2022 Active clopidogreL (PLAVIX) 75 mg tabletIndication s:Coronary artery disease involving rampart coronary artery of rampart heart without angina pectoris Take 1 tablet by mouth once daily 30 tablet 08/27/2022 Active lisinopriL (PRINIVIL,ZESTRI L) 5 mg tabletIndication s:Coronary artery disease involving rampart coronary artery of rampart heart without angina pectoris Take 1 tablet by mouth once daily 30 tablet 08/27/2022 Active atorvastatin (LIPITOR) 80 mg tablet Take 1 tablet (80 mg total) by mouth daily 30 tablet 09/10/2022 Active Active Problems Problem Noted Date Diagnosed Date 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 06/08/2021 Essential [...] on file Legal Sex Male 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 Gender Identity Not on file Sexual Orientation Not on file Obstetrics History Last Filed Vital Signs Vital Sign Reading Time Taken Comments Blood Pressure 116/72 09/05/2021 2:05 PM SURGEON/PRESIDENT Pulse 72 09/05/2021 2:05 PM SURGEON/PRESIDENT Temperature 36.9 C (98.4 F) 06/08/2021 1:47 PM SURGEON/PRESIDENT Respiratory Rate - - Oxygen Saturation 97% 09/05/2021 2:05 PM SURGEON/PRESIDENT Inhaled Oxygen Concentration - - Weight 88 kg (194 lb) 09/05/2021 2:05 PM SURGEON/PRESIDENT Height 175.3 cm (5' 9) 09/05/2021 2:05 PM SURGEON/PRESIDENT Body Mass Index 28.65 09/05/2021 2:05 PM SURGEON/PRESIDENT Plan of Treatment Not on file Insurance [facility] [place] [id number] [facility] Care Teams Spool Worker Relationship Specialty Start Date End Date Chandra Sanchez MD PCP - General Family Medicine 09/05/21
--- OUTSIDE RECORDS SUMMARY | 2025-05-21 10:21 | XMS_ITS | Encounter Summary ---
Author Organization [facility] Address [address] [address] Care Team Providers Care Medical Laboratory Technical Officer Name Role Phone Chandra Sanchez MD Unavailable [phone] Chandra Sanchez MD Primary Care Provider [phone] Encounter Details Date Type Department Care Team (Late st Contact Info) Description 02/13/2022 Lab Requisition [facility] [address] [place] [id number] Ulises Beatty MD [address] [place] [id number] Social History Tobacco Use Types Packs/Day Years Used Date Smoking Tobacco: Every Day Cigarettes Alcohol Use Standard Drinks/Week Comments Yes 0 (1 standard drink = 0.6 oz pur e alcohol) Sex and Gender Information Value Date Recorded Sex Assigned at Not on file 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 Gender Identity Not on file Sexual Orientation Not on file documented as of this encounter Plan of Treatment Not on file documented as of this encounter Procedures Procedure Name Priority Date/Time Associated Diagnosis Comments DERMATOPATHOLOGY Routine 02/13/2022 12:0 0 AM CDT documented in this encounter Results * DERMATOPATHOLOGY (02/13/2022 12:00 AM CDT) Case Report Dermatopathology Report Case: [id number] Authorizing Provider: Ulises Beatty MD Collected: 02/13/2022 12:00 AM Ordering Location: [facility] Received: 02/13/2022 04:54 PM Pathologist: Mayank Camp MD Specimen: Skin, right posterior neck 2 5:13 PM CDT DERMATOPATHOLOGY LABORATORY Final Diagnosis Specimen A. SKIN, right posterior neck: BENIGN VERRUCOUS KERATOSIS WITH ASSOCIATED CHANGES OF PRURIGO NODULARIS (L82.1) PRESENT AT MARGIN 2 5:13 PM CDT DERMATOPATHOLOGY LABORATORY at 1713 CDT Clinical History R/O Neoplasia vs. Scar Tissue. Please Check Margins. 2 5:13 PM CDT DERMATOPATHOLOGY LABORATORY Gross Description Specimen A: Received is one formalin filled container labeled with the patient's name and designated right posterior neck. The specimen consists of a shave biopsy measuring [id number] and it is inked. Jar 0. 2 5:13 PM CDT DERMATOPATHOLOGY LABORATORY Microscopic Description Specimen A. SKIN, [...] margin of the specimen. 2 5:13 PM CDT DERMATOPATHOLOGY LABORATORY Disclaimer An external and internal positive and negative controls are appropriate for the histochemical, immunohistochemical and immunofluorescence stain(s) in this case (if any), except where stated explicitly. The performance characteristics of the stain(s) cited in this report were developed and its performance characteristic determined by the Dermatopathology Laboratory at [facility], directed by Dr. Latosha Camp. These tests need not be, and therefore are not, approved by the [place] Food and Drug Administration. The tests are used for clinical purposes. Billing Codes Specimen Charges Stain Charges 78186 1 2 5:13 PM CDT DERMATOPATHOLOGY LABORATORY Embedded Images 2 5:13 PM CDT DERMATOPATHOLOGY LABORATORY Pathology/Cytolog y TISSUE SPECIMEN FROM SKIN / Unknown 02/13/2022 02/13/2022 4:54 PM CDT us Ulises Beatty MD LAB - PATHOLOGY/CYTOLOGY ORDERAB LES Final Result DERMATOPATHOLOGY LABORATORY [facility] [place] Department of Dermatology [address], [address] [phone] documented in this encounter Visit Diagnoses Not on filedocumented in this encounter Care Teams Medical Laboratory Technical Officer Relationship Specialty Start Date End Date Chandra Sanchez MD [address] [place] [address] PCP - Attributed-[employer] [place] 07/29/21 07/28/22 Chandra Sanchez MD [address] [place] [address] PCP - General Family Medicine 03/16/22 documented as of this encounter
--- OUTSIDE RECORDS SUMMARY | 2025-05-21 10:21 | XMS_ITS | Clinical Summary ---
Author Organization [facility] Address [address] [address] Care Team Providers Care Sourcing Manager Name Role Phone Chandra Sanchez MD Primary Care Provider [phone] Source Comments [facility],non-owned Affiliates and Associated Physician Practices is amultiple site organization consisting of ambulatory clinics and hospital sitesin [place], [place], [place] and [place]. This disclosure is being madepursuant to the Care Everywhere program and may not contain all information available regarding this patient. Last updated 18.[facility] Medications * Be aware that medications may not be up to date on this document. Alwaysverify current medications with the patient. 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 Gender Identity Not on file Sexual Orientation Not on file Last Filed Vital Signs Vital Sign Reading Time Taken Comments Blood Pressure - - Pulse - - Temperature - - Respiratory Rate - - Oxygen Saturation - - Inhaled Oxygen Concentration - - Weight 84.8 kg (187 lb) 03/16/2022 11:22 AM CDT Height 175.3 cm (5' 9) 03/16/2022 11:22 AM CDT Body Mass Index [...] 02/20/1983 DTAP/TDAP/TD VACCINES (1 - Tdap) 02/25/1984 PNEUMOCOCCAL VACCINE 50+ (1 of 1 - PCV) 2015 ZOSTER VACCINE (1 of 2) 2015 SCREENING FOR DIABETES 03/16/2022 DEPRESSION SCREENING 07/29/2024 COVID-19 VACCINE (1 - 2023-2 5 season) 2025 INFLUENZA VACCINE (#1) 2025 Respiratory Syncytial Virus (RSV) Vaccine Pt: or over 60 yrs (1 - 1-dose 75+ series) 02/25/2040 HEPATITIS B VACCINE Aged Out No longe r eligible based on patient's age to complete this topic HIB VACCINE Aged Out No longer eligi [...] on patient's age to complete this topic Insurance [facility] Care Teams Sourcing Manager Relationship Specialty Start Date End Date Chandra Sanchez MD [address] [place] [address] PCP - General Family Medicine 03/16/22
[2025-05-21 10:32] LABS: Troponin I < 0.012 ng/mL (0.000-0.034)
--- NOTE | 2025-05-21 11:46 | ED_ITS ---
HPI - Chest Pain General Chief Complaint: Chest Pain Stated Complaint: chest tightness Time Seen by Provider: 05/21/25 09:38 History of Present Illness HPI narrative: Patient is a 60-year-old male who presents the ER with chest pain. Ongoing intermittently over last couple of weeks. He was seen here 3 weeks ago after having a near syncopal episode and he thinks he was dehydrated. He saw his paper final inspector after that to told him to eat more salt and also where tighter underwear to help with circulation. He was at his PCPs office today and they thought he had an abnormal EKG and contacted his paper final inspector who recommended he get a cardiac catheterization. Patient has tightness in his left center chest that radiates to his left shoulder. He has no nausea vomiting. No dyspnea. He has history of cardiac catheterization with PCI x2. He took his aspirin today. Related Data Home Medications ?Medication ?Instructions ?Recorded ?Confirmed ?Last Taken ?Type pantoprazole 40 mg tablet,delayed 40 mg PO QAM 3 05/21/25 Unknown History release clopidogrel 75 mg tablet 75 mg PO DAILY 05/21/2504/29 Unknown History nitroglycerin 0.4 mg sublingual 0.4 mg sublingual Q5M PRN chest 05/21/25 05/21/25 Unknown History tablet pain Allergies Allergy/AdvReac Type Severity Reaction Status Date / Time No Known Allergies Allergy Verified 05/21/25 14:11 Review of Systems 2 Review of Systems: All systems reviewed & are unremarkable except as noted in HPI and below Constitutional: Constitutional: Reports no additional constitutional complaints ENT: Reports system reviewed and no additional complaints, except as documented Cardiovascular: Cardiovascular: Reports no additional cardiovascular complaints Respiratory: Respiratory: Reports no additional respiratory complaints Genitourinary: Genitourinary: Reports no additional male genitourinary complaints [facility] Past Medical History Medical History Atrial fibrillation with controlled ventricular rate Hyperlipidemia Neuropathy Coronary artery disease Essential hypertension BPH associated with nocturia Screening for prostate cancer BMI 28.0-28.9,adult Lumbar spondylosis Surgical History Surgical History History of coronary artery stent placement x1 2020, x1 2022 H/O rotator cuff surgery Family History Family History Sibling Patient's sister is in good health Patient's brother is in good health Family history of hepatitis Father Patient's father is Heart disease Mother No problems noted. Social History Social History Smoking packs per day: 2 Smoking cigarettes per day: 40.0 Years smoked: 45 Smoking pack-years: 90.00 Smoking status: Former smoker Tobacco type: cigarettes Second hand tobacco smoke exposure: Yes Smoking end date: 05/05/25 Alcohol intake: former Drinks per week: 1 Substance use: current Substance use type: marijuana Do You Feel Safe in your Home?: Yes Lack of Transportation: No Lack of Food: Never True Current Housing: I Have Housing Concerned About Future Housing: No Difficulty Paying Gas/Electric Bills: No Difficulty Paying for Meds: No Currently Unemployed: No Education: High School Diploma/GED Difficulty w/ Childcare or Family Care: No Living arrangements: alone Occupation/Education: unemployed 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 HEAD: Normocephalic, atraumatic. EYES: PERRL and EOMI. ENT: Mucous membranes moist. CHEST: Clear to auscultation. No respiratory distress. HEART: Regular rate and rhythm. Normal peripheral pulses. ABDOMEN: Soft, nontender, nondistended. EXTREMITIES: Normal range of motion. No edema. SKIN: Warm, dry, no rash. NEURO: Alert and oriented x3. PSYCH: Normal mood and affect. Course Course Emergency Course: Labs normal. EKG unchanged but concerning story with significant risk factors. Admit for observation. Patient did have some chest pain that improved with nitroglycerin. He is also having discomfort while he was having a bigeminal rhythm on the manager monitoring and EKG. Vital Signs Vital signs: Vital Signs Temperature 97.7 F 05/21/25 09:40 Pulse Rate 66 05/21/25 09:40 Respiratory Rate 19 05/21/25 09:40 Blood Pressure 159/94 H 05/21/25 09:40 Pulse Oximetry 100 10/24/25 09:40 Oxygen Delivery Room Air 05/21/25 09:40 Temperature 97.7 F 05/21/25 09:40 Pulse Rate 78 05/21/25 11:43 Respiratory Rate 18 05/21/25 11:43 Blood Pressure 133/83 05/21/25 11:43 Pulse Oximetry 97 05/21/25 11:43 Oxygen Delivery Room Air 05/21/25 09:49 MDM - Chest Pain Lab Data Attestation: I reviewed the patient's lab results. 05/21/25 09:50 05/21/25 09:50 Labs: Lab Results 05/21/25 Range/Units 09:50 WBC 7.5 (4.5-10.0) K/mm3 RBC 5.56 (4.6-6.20) M/mm3 Hgb 17.2 (14.0-18.0) g/dL Hct 50.8 (42.0-52.0) % MCV 91.4 (80-100) fl MCH 30.9 (26-34) pg MCHC 33.9 (32-36) g/dl RDW 12.9 (11.5-14.5) % Plt Count 251 (150-375) k/mm3 MPV 9.6 (7.4-10.4) fl Immature Gran % (Auto) 0.4 (0-0.5) % Neut % (Auto) 63.1 (45.5-73.1) % Lymph % (Auto) 23.1 (18.3-44.2) % [place] % (Auto) 11.1 H (2.6-8.5) % Eos % (Auto) 1.6 (0-4.4) % Baso % (Auto) 0.7 (0.2-1.2) % Lymph # (Auto) 1.73 (0.9-3.2) K/mm3 [place] # (Auto) 0.8 H (0.1-0.6) K/mm3 Eos # (Auto) 0.1 (0-0.3) K/mm3 Baso # (Auto) 0.1 (0.0-0.1) K/mm3 Abs Immat Gran (auto) 0.03 (0.00-0.031) K/mm3 Absolute Neuts (auto) 4.7 (1.3-6.7) K/mm3 Absolute Nucleated RBC 0.000 (0.0-0.012) K/mm3 Nucleated RBC % 0.0 (0.0-0.2) % PT 12.7 (11.1-14.7) Seconds INR 0.9 APTT 26.7 (22.3-36.8) Seconds Sodium 137 (137-145) mmol/L Potassium 3.9 (3.4-5.0) mmol/L Chloride 100 (98-107) mmol/L Carbon Dioxide 30 (22-30) mmol/L Anion Gap 7 (4-12) mmol/L BUN 15 (9-20) mg/dL Creatinine 0.81 (0.7-1.3) mg/dL Estim Creat Clear Calc 82 ml/min Estimated GFR > 60 (59 - ) Glucose 119 H (65-110) mg/dL Calcium 9.4 (8.4-10.2) mg/dL Total Bilirubin 0.7 (0.2-1.3) mg/dL AST 23 (17-59) U/L ALT 23 (6-50) U/L Alkaline Phosphatase 79 (38-126) U/L Troponin I < 0.012 (0.000-0.034) ng/mL Total Protein 7.5 (6.3-8.2) g/dL Albumin 4.5 (3.5-5.1) g/dL Lipase 91 (23-300) U/L Imaging Data Radiologist's impression: ITS Impressions Chest X-Ray 05/21/25 10:31 Impression: No acute cardiopulmonary abnormality. ECG Data EKG #1: Attestation: I personally reviewed and interpreted this ECG as follows: ECG completion date: 05/21/25 ECG completion time: 09:42 EKG Interpretation: normal rate (64), sinus rhythm, non-specific ST changes, normal QRS and normal QT EKG #2: Attestation: I personally reviewed and interpreted this ECG as follows: ECG completion date: 05/21/25 ECG completion time: 12:45 EKG Interpretation: normal rate (70), sinus rhythm, PVCs, normal QRS and normal QT Discharge Plan Discharge Clinical Impression: Chest pain Patient Disposition: Still a Patient Condition: Stable Quality HEART score for chest pain patients History: moderately suspicious ECG: non specific repolarization disturbance/LBTB/PM Age: > 45 and < 65 years Risk factors: > or = to 3 risk factors of atherosclerotic disease Troponin: < or = to 1x normal limit Heart score: 5
--- NOTE | 2025-05-21 12:42 | ECG_ITS ---
Test Date: 2025-05-21 12:45:33 Measurements Intervals Ute Rate: 70 P: 57 TN: 157 QRS: 57 QRSD: 94 T: 32 QT: 400 QTc: 432 Interpretive Statements SINUS RHYTHM WITH FREQUENT VENTRICULAR PREMATURE COMPLEXES IN A BIGEMINAL PATTERN POSSIBLE LEFT ATRIAL ENLARGEMENT CONSIDER INFERIOR INFARCT, AGE INDETERMINATE BASELINE ARTIFACT- I, II, III, AVR, AVL, AVF ABNORMAL ECG Compared to ECG 05/21/2025 09:42:43 VENTRICULAR BIGEMINY NOW PRESENT Electronically Signed On 05-21-2025 12:54:49 CDT by Tahir Roe D.O.
[2025-05-21] MEDS: NITROGLYCERIN SL 0.4 MG TABLET SUBLINGUAL (12:54)
--- NOTE | 2025-05-21 12:55 | PC.NURSE ---
first SL nitro tab given, pain 02/04
[2025-05-21 12:59] LABS: Troponin I < 0.012 ng/mL (0.000-0.034)
--- NOTE | 2025-05-21 13:00 | PC.NURSE ---
2nd dose of SL nitro given, pain remains 7/10 w/ out improvement
--- NOTE | 2025-05-21 13:05 | PC.NURSE ---
3rd tab SL nitro given at this time, pain currently 02/04
--- NOTE | 2025-05-21 13:25 | PM.IMHP ---
H&P: HPI History of Present Illness Date/Time: 05/21/25 13:25 Chief Complaint: Chest Pain Narrative: 60 y/o M with PMH of coronary artery disease x2 stents, hypertension, hyperlipidemia, and atrial fibrillation presents with intermittent chest pain. The patient initially presented with one week of intermittent chest pressure and generalized weakness on 05/05. At that time he reported some associated nausea and diaphoresis. Declined admission for further cardiac workup at that time and was discharged home with plans to follow up outpatient. Now presenting today, 05/21, because his PCP saw changes on his EKG. He had an EKG completed 3 weeks prior and when compared to the EKG done today, they were very different. EKG was reviewed by [facility] who also recommended seeking evaluation. Currently experiencing intermittent chest pressure. He describes most recent episode as searing and stabbing. Episodes last anywhere between 2 to 3 minutes, increasing in frequency in the last 3 weeks, and has been accompanied by nausea/diaphoresis. Within the last week it is now also accompanied by shortness of breath and fatigue. Current symptoms feel similar to his first heart attack, second heart attack he had more nausea. Former tobacco use. Cessation of smoking approx 3 weeks ago. Previously smoking 2 PPD for 40 years. Initial VS at presentation: 97.7? F, HR 66, RR 19, 159/94, and 100% on RA. ED workup showed: No leukocytosis, no anemia, normal coags, no significant electrolyte derangements, troponin negative x2. CXR showed no acute cardiopulmonary abnormality. EKG showed sinus rhythm, rate 64, possible left atrial enlargement, consider inferior infarct age indeterminate, baseline artifact. Review of Systems Review of Systems: All systems reviewed & are unremarkable except as noted in HPI and below PMFSH Past Medical History Medical History Atrial fibrillation with controlled ventricular rate Hyperlipidemia Neuropathy Coronary artery disease Essential hypertension BPH associated with nocturia Screening for prostate cancer BMI 28.0-28.9,adult Lumbar spondylosis Surgical History Surgical History History of coronary artery stent placement x1 2020, x1 2022 H/O rotator cuff surgery Family History Family History Sibling Patient's sister is in good health Patient's brother is in good health Family history of hepatitis Father Patient's father is Heart disease Mother No problems noted. Social History Social History Smoking packs per day: 2 Smoking cigarettes per day: 40.0 Years smoked: 45 Smoking pack-years: 90.00 Smoking status: Former smoker Tobacco type: cigarettes Second hand tobacco smoke exposure: Yes Smoking end date: 05/05/25 Alcohol intake: former Drinks per week: 1 Substance use: current Substance use type: marijuana Do You Feel Safe in your Home?: Yes Lack of Transportation: No Lack of Food: Never True Current Housing: I Have Housing Concerned About Future Housing: No Difficulty Paying Gas/Electric Bills: No Difficulty Paying for Meds: No Currently Unemployed: No Education: High School Diploma/GED Difficulty w/ Childcare or Family Care: No Living arrangements: alone Occupation/Education: unemployed 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 Gender identity (if verbalized by the patient): Male Spiritual care concerns: Yes Meds Home Medications and Allergies Home Medications ?Medication ?Instructions ?Recorded ?Confirmed ?Type aspirin 81 mg tablet,delayed 81 mg PO QAM #100 tabs 05/18/21 05/21/25 Rx release pantoprazole 40 mg tablet,delayed 40 mg PO QAM 10/12/22 05/21/25 History release gabapentin 300 mg capsule 900 mg (3 x 300 mg) PO TID #270 02/06/24 05/21/25 Rx caps atorvastatin 80 mg tablet See Rx Instructions .Route 05/12/24 05/21/25 Rx .COMPLEX #90 tabs duloxetine 60 mg capsule,delayed 60 mg PO DAILY #90 caps 12/23/24 05/21/25 Rx release clopidogrel 75 mg tablet 75 mg PO DAILY 05/21/25 05/21/25 History nitroglycerin 0.4 mg sublingual 0.4 mg sublingual Q5M PRN chest 05/21/25 05/21/25 History tablet pain Allergies Allergy/AdvReac Type Severity Reaction Status Date / Time No Known Allergies Allergy Verified 05/21/25 14:11 Vital Signs Vital Signs - 24 hr 05/21/25 09:40 05/21/25 09:49 05/21/25 09:49 Temperature 97.7 F Pulse Rate 66 65 Respiratory Rate 19 Blood Pressure 159/94 H Pulse Oximetry 100 98 Oxygen Delivery Room Air Room Air 05/21/25 11:43 05/21/25 12:55 05/21/25 13:00 Temperature Pulse Rate 78 73 71 Respiratory Rate 18 16 19 Blood Pressure 133/83 144/86 H 110/80 Pulse Oximetry 97 100 98 Oxygen Delivery 05/21/25 13:06 Temperature Pulse Rate 81 Respiratory Rate 14 Blood Pressure 123/78 Pulse Oximetry 98 Oxygen Delivery Exam Const: General: comfortable and no acute distress Other: , male, nontoxic appearance HENMT: Face/Nose/Sinus: Normal nares present Mouth: Yes moist mucous membranes Eyes: General: appearance normal, both eyes and all related structures Sclera: sclerae normal Pupils: Equal, round and reactive pupils present EOM: EOMs intact bilaterally Resp: Effort & Inspection: normal respiratory effort Auscultation: clear to auscultation bilaterally Cardio: Rate: regular rate Rhythm: regular rhythm Other: S1-S2 present without murmur, rub, ectopy GI: Other: Abdomen soft, nondistended, nontender. Normoactive bowel sounds in all quadrants. Skin: General skin exam: normal color and no rashes or lesions noted Wounds: no wounds Neuro: Speech: normal speech Motor exam (neuro): 5/5 motor strength present throughout Sensory Exam: normal sensation Other: A&O x4 Extrem: General: normal to inspection Psych: Mental Status: mental status grossly normal Affect: normal affect Other: Good insight and judgment, pleasant H&P: Results Labs Labs: Short CBC 05/21/25 Range/Units 09:50 WBC 7.5 (4.5-10.0) K/mm3 Hgb 17.2 (14.0-18.0) g/dL Hct 50.8 (42.0-52.0) % Plt Count 251 (150-375) k/mm3 BMP 05/21/25 09:50 Sodium 137 Potassium 3.9 Chloride 100 Carbon Dioxide 30 BUN 15 Creatinine 0.81 Glucose 119 H Calcium 9.4 Cardiac Enzymes 05/21/25 05/21/25 Range/Units 09:50 12:32 Troponin I < 0.012 < 0.012 (0.000-0.034) ng/mL Liver Function 05/21/25 Range/Units 09:50 Total Bilirubin 0.7 (0.2-1.3) mg/dL AST 23 (17-59) U/L ALT 23 (6-50) U/L Alkaline Phosphatase 79 (38-126) U/L Albumin 4.5 (3.5-5.1) g/dL Assessment and Plan Assessment and plan (1) Intermittent chest pain: Code(s): R07.9 - Chest pain, unspecified Status: Acute Assessment and Plan: The patient initially presented with 1 week of intermittent chest pressure and generalized weakness on 05/05. At that time he reported some associated nausea and diaphoresis. Declined admission for further cardiac workup at that time. Presented on 05/21 for re-evaluation after his PCP became concerned that he had EKG changes. Reviewed EKGs completed today, no significant ST depressions or elevations. Repeat EKG now showing increased PVCs. - continue serial troponins, thus far negative x2 - cardiology consulted, will likely undergo stress test or cardiac catheterization on Saturday (05/24) - nitro SL p.r.n. - continue daily aspirin, atorvastatin, Plavix - telemetry monitoring (2) Hyperlipidemia: Qualifiers: Hyperlipidemia type: mixed hyperlipidemia Qualified Code(s): E78.2 - Mixed hyperlipidemia Code(s): E78.5 - Hyperlipidemia, unspecified Status: Chronic Assessment and Plan: - continue atorvastatin (3) Essential hypertension: Code(s): I10 - Essential (primary) hypertension Status: Resolved Assessment and Plan: - chronic, currently 123/78, stable and does not require daily antihypertensives. - monitor Plan Diet: Heart healthy GI Prophylaxis: n/a DVT Prophylaxis: SCDs IV fluids: None Lines/Tubes: Peripheral IV Code Status: Full code Quality VTE Prophylaxis VTE prophylaxis: mechanical ordered Hospitalist MIPS Advance Care Plan I have confirmed that the patient's Advanced Care Plan is present, code status is documented, or surrogate decision maker is listed in patient medical record.: Yes Medication Reconciliation I have utilized all available resources to obtain, update and review the patients current medications (includes all prescriptions, OTC, herbals, cannabis, and nutritional supplements).: Yes
--- NOTE | 2025-05-21 14:28 | P.CONCA_ITS ---
Assessment and Plan Assessment and plan (1) Intermittent chest pain: Code(s): R07.9 - Chest pain, unspecified Status: Acute Plan This is a 60-year-old man with coronary artery disease with history of stenting to the circumflex emergently back in 2020 and according to the patient somewhat non emergently in 2022 at [facility] . He enters the hospital with the chest pain syndrome that is atypical but of concern regarding his history. He recently quit smoking but obviously only recently improved that risk factor. It is favorable that his ECG and troponins are negative. In this setting we probably should recommend arranging for follow-up coronary angiography which if he is stable I will schedule for Saturday. For now will keep him on anti-platelet therapy, atorvastatin and some nitro paste. Jose Mendoza MD [facility] History of Present Illness History of Present Illness Consult date/time: 05/21/25 14:28 Reason For Visit: Chest Pain/Bigeminy Narrative: This is a 60-year-old man I am seeing in consultation because of the hospitalist because of chest pain. The patient is actually known to me from a emergency PCI that was done 4 years ago at this hospital. He has a history of coronary artery disease dating back to that day in April of 2021 when he presented here with chest pain and was having acute myocardial infarction. He was brought to the botany laboratory assistant emergently by myself and was found to have total occlusion of the 2nd OM branch of the circumflex which was a large vessel. This was treated successfully with a 3 mm Orsiro drug-eluting stent dilated to 3.5 mm with good expansion and a very good anatomic result. He did very well following that intervention. After short time he transferred his cardiac care to a practitioner elsewhere. He states that he did well until 2 years ago when he was actually out of town in [facility] and was hospitalized with some chest pain and describes having a catheterization and a stent placed in it is a different location in the circumflex. Obviously we do not have details of that procedure. He says the procedure was successful and he did well. He has been following again with his local transitional care liaison. He was a heavy cigarette smoker of 2 packs per day until earlier this month when he finally decided to quit smoking. He was seen in this [facility]'s Emergency Room earlier this month with some symptoms of lightheadedness and diaphoresis. He went to see his primary care provider earlier today and states that he was noted to be somewhat diaphoretic and hypotensive in the office and so he was sent to the emergency room for evaluation. He says that he is having episodes of central chest heaviness off and on but not in a real exertional fashion. He was seen in the emergency room his ER evaluation includes 2 ECGs that do not show any evidence of ischemia or injury. The 2nd EKG showed PVCs occurring in a pattern of bigeminy. He was placed on telemetry admitted to the IMU. He has 2 sets of troponins in the chart which are negative. He appears to be in no distress at this time. His home Medicare medical regimen consists of aspirin, clopidogrel, atorvastatin and gabapentin. Review of Systems 2 Constitutional: Constitutional: Reports lethargy Eyes: Eyes: Reports no additional eye complaints ENT: Reports system reviewed and no additional complaints, except as documented Cardiovascular: Cardiovascular: Reports as per HPI Respiratory: Respiratory: Reports no additional respiratory complaints Gastrointestinal: Gastrointestinal: Reports no additional gastrointestinal complaints Musculoskeletal: Musculoskeletal: Reports no additional musculoskeletal complaints Integumentary/Breasts: Skin/Breast: Reports system reviewed and no additional complaints, except as docu Neurologic: Reports system reviewed and no additional complaints, except as documented Endocrine: Endocrine: Reports no additional endocrine complaints Hematologic/Lymphatic: Hematologic/Lymphatic: Reports no additional hematologic/lymphatic complaints Allergic/Immunologic: Allergic/Immunologic: Reports no additional allergic/immunologic complaints [facility] Past Medical History Medical History Atrial fibrillation with controlled ventricular rate Hyperlipidemia Neuropathy Coronary artery disease Essential hypertension BPH associated with nocturia Screening for prostate cancer BMI 28.0-28.9,adult Lumbar spondylosis Surgical History Surgical History History of coronary artery stent placement x1 2020, x1 2022 H/O rotator cuff surgery Family History Family History Sibling Patient's sister is in good health Patient's brother is in good health Family history of hepatitis Father Patient's father is Heart disease Mother No problems noted. Social History Social History Smoking packs per day: 2 Smoking cigarettes per day: 40.0 Years smoked: 40 Smoking pack-years: 80.00 Smoking status: Current every day smoker (2 ppd) Tobacco type: cigarettes Second hand tobacco smoke exposure: Yes Alcohol intake: former Drinks per week: 1 Substance use: current Substance use type: marijuana Do You Feel Safe in your Home?: Yes Lack of Transportation: No Lack of Food: Never True Current Housing: I Have Housing Concerned About Future Housing: No Difficulty Paying Gas/Electric Bills: No Difficulty Paying for Meds: No Currently Unemployed: No Education: High School Diploma/GED Difficulty w/ Childcare or Family Care: No Living arrangements: alone Occupation/Education: unemployed 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 Gender identity (if verbalized by the patient): Male Spiritual care concerns: Yes Meds Home Medications and Allergies Home Medications ?Medication ?Instructions ?Recorded ?Confirmed ?Type aspirin 81 mg tablet,delayed 81 mg PO QAM #100 tabs 05/21/25 Rx release pantoprazole 40 mg tablet,delayed 40 mg PO QAM 3 05/21/25 History release gabapentin 300 mg capsule 900 mg (3 x 300 mg) PO TID # 270 02/06/24 05/21/25 Rx caps atorvastatin 80 mg tablet See Rx Instructions .Route 1 05/21/25 Rx .COMPLEX #90 tabs duloxetine 60 mg capsule,delayed 60 mg PO DAILY #90 ca ps 12/23/24 05/21/25 Rx release clopidogrel 75 mg tablet 75 mg PO DAILY 05/21/2504/29 History nitroglycerin 0.4 mg sublingual 0.4 mg sublingual Q5M PRN chest 05/21/25 05/21/25 History tablet pain Allergies Allergy/AdvReac Type Severity Reaction Status Date / Time No Known Allergies Allergy Verified 05/21/25 14:11 Vital Signs Vital Signs - 24 hr 05/21/25 09:40 05/21/25 09:49 05/21/25 09:49 Temperature 36.5 C Pulse Rate 66 65 Respiratory Rate 19 Blood Pressure 159/94 H Pulse Oximetry 100 98 Oxygen Delivery Room Air Room Air 05/21/25 11:43 05/21/25 12:55 05/21/25 13:00 Temperature Pulse Rate 78 73 71 Respiratory Rate 18 16 19 Blood Pressure 133/83 144/86 H 110/80 Pulse Oximetry 97 100 98 Oxygen Delivery 05/21/25 13:06 05/21/25 13:35 05/21/25 14:07 Temperature 36.6 C Pulse Rate 81 67 64 Respiratory Rate 14 18 20 Blood Pressure 123/78 122/93 H 140/66 Pulse Oximetry 98 99 95 Oxygen Delivery Exam 2 Const: General: comfortable and no acute distress HENMT: Face/Nose/Sinus: Normal nares present Mouth: Yes moist mucous membranes Eyes: Sclera: sclerae normal Pupils: Equal, round and reactive pupils present Neck: Neck: supple and no JVD Other: No carotid bruits Resp: Effort & Inspection: normal respiratory effort Auscultation: clear to auscultation bilaterally Cardio: Rate: regular rate Rhythm: regular rhythm Other: No audible gallop murmur or rub GI: GI Palp: Yes Soft to palpation Auscultation: normal bowel sounds Skin: General skin exam: normal color Neuro: Other: Alert and oriented x3 Extrem: General: normal to inspection Results Labs and Meds 05/21/25 09:50 05/21/25 09:50 Lab results: Cardiac Enzymes 05/21/25 05/21/25 Range/Units 09:50 12:32 AST 23 (17-59) U/L Troponin I < 0.012 < 0.012 (0.000-0.034) ng/mL Coagulation 05/21/25 Range/Units 09:50 PT 12.7 (11.1-14.7) Seconds APTT 26.7 (22.3-36.8) Seconds CBC 05/21/25 Range/Units 09:50 WBC 7.5 (4.5-10.0) K/mm3 RBC 5.56 (4.6-6.20) M/mm3 Hgb 17.2 (14.0-18.0) g/dL Hct 50.8 (42.0-52.0) % Plt Count 251 (150-375) k/mm3 Lymph # (Auto) 1.73 (0.9-3.2) K/mm3 [place] # (Auto) 0.8 H (0.1-0.6) K/mm3 Eos # (Auto) 0.1 (0-0.3) K/mm3 Baso # (Auto) 0.1 (0.0-0.1) K/mm3 Comprehensive Metabolic Panel 05/21/25 Range/Units 09:50 Sodium 137 (137-145) mmol/L Potassium 3.9 (3.4-5.0) mmol/L Chloride 100 (98-107) mmol/L Carbon Dioxide 30 (22-30) mmol/L BUN 15 (9-20) mg/dL Creatinine 0.81 (0.7-1.3) mg/dL Glucose 119 H (65-110) mg/dL Calcium 9.4 (8.4-10.2) mg/dL AST 23 (17-59) U/L ALT 23 (6-50) U/L Alkaline Phosphatase 79 (38-126) U/L Total Protein 7.5 (6.3-8.2) g/dL Albumin 4.5 (3.5-5.1) g/dL Patient Weight 05/21/25 23:59 Weight 84.1 kg
[2025-05-21] MEDS: GABAPENTIN 300 MG CAPSULE 900 MG PO ×2 (15:14→19:24)
[2025-05-21] MEDS: ATORVASTATIN 40 MG TABLET 80 MG PO (15:14)
[2025-05-21] MEDS: ENOXAPARIN 80 MG/0.8 ML SYRINGE SUB-Q (15:14)
[2025-05-21 16:24] LABS: Troponin I < 0.012 ng/mL (0.000-0.034)
[2025-05-21] MEDS: NITROGLYCERIN OINTMENT 1 INCH DOSE TRANSDERM (18:12)
--- NOTE | 2025-05-21 18:39 | ADMGEN ---
This patient, Anirudh Orozco, was admitted to IMU Room 209-01 at 1340. Patient/family oriented to hospital policies and general routines including ID bracelet, bed and alarms, visiting hours, pain management, procedures, bathroom and other care routines, personal items, smoking policy, room service/diet, and visiting hours. Information on how to activate the Rapid Response Team has been discussed. Patient/Family are encouraged to report perceived risks to care and to ask questions if they do not understand what they are told or what they should do.
[2025-05-22] VITALS (15 sets, daily range): BP systolic 102–126; BP diastolic 55–82; PULSE 61–95; RESP 14–17; TEMP 36.4–36.6; O2SAT 94–99
[2025-05-22 04:20] LABS: Hematocrit 46.6 % (42.0-52.0); Hemoglobin 15.8 g/dL (14.0-18.0); Immature Granulocyte Percent A 0.3 % (0-0.5); Lymphocytes Absolute Auto 3.07 K/mm3 (0.9-3.2); Mean Corpuscular HGB Conc 33.9 g/dl (32-36); Mean Corpuscular Hemoglobin 31.3 pg (26-34); Mean Corpuscular Volume 92.3 fl (80-100); Nucleated Red Blood Cells Absolute Auto 0.000 K/mm3 (0.0-0.012); Nucleated Red Blood Cells Perc 0.0 % (0.0-0.2); Platelet Count Result 228 k/mm3 (150-375); Red Blood Count 5.05 M/mm3 (4.6-6.20); White Blood Count 9.8 K/mm3 (4.5-10.0)
[2025-05-22 04:40] LABS: Anion Gap 7 mmol/L (4-12); Blood Urea Nitrogen 14 mg/dL (9-20); Calcium 8.7 mg/dL (8.4-10.2); Carbon Dioxide 26 mmol/L (22-30); Chloride 102 mmol/L (98-107); Cholesterol 137 mg/dL (0-200); Estimated CRCL calculation 84 ml/min; Estimated Glomerular Filt Rate > 60; Glucose 107 mg/dL (65-110); HDL Direct 28 mg/dL; Potassium 3.9 mmol/L (3.4-5.0); Sodium 135 mmol/L (137-145); Triglycerides 272 mg/dL (<150)
--- NOTE | 2025-05-22 07:29 | P.PNIM_ITS ---
Progress Note: A&P Assessment and Plan (1) Intermittent chest pain: Code(s): R07.9 - Chest pain, unspecified Status: Acute Assessment and Plan: The patient initially presented with 1 week of intermittent chest pressure and generalized weakness on 05/05. At that time he reported some associated nausea and diaphoresis. Declined admission for further cardiac workup at that time. Presented on 05/21 for re-evaluation after his PCP became concerned that he had EKG changes. Reviewed EKGs completed today, no significant ST depressions or elevations. Repeat EKG now showing increased PVCs. * continue serial troponins, thus far negative x2 * nitro SL p.r.n. * continue daily aspirin, atorvastatin, Plavix * telemetry monitoring * cardiology consulted, will likely undergo stress test or cardiac catheterization on Saturday (05/24) * coronary angiography on Thursday 05/24 if stable * Continue anti-platelet therapy, atorvastatin and nitro paste (2) Hyperlipidemia: Qualifiers: Hyperlipidemia type: mixed hyperlipidemia Qualified Code(s): E78.2 - Mixed hyperlipidemia Code(s): E78.5 - Hyperlipidemia, unspecified Status: Chronic Assessment and Plan: * Continue atorvastatin (3) Essential hypertension: Code(s): I10 - Essential (primary) hypertension Status: Resolved Assessment and Plan: * chronic, currently 102/70, stable and does not require daily antihypertensives. * monitor Plan Diet: Heart healthy GI Prophylaxis: n/a DVT Prophylaxis: SCDs IV fluids: None Lines/Tubes: Peripheral IV Code Status: Full code Subjective Date/time seen: 05/22/25 07:29 Interval history: 60 y/o M with PMH of coronary artery disease x2 stents, hypertension, hyperlipidemia, and atrial fibrillation presents with intermittent chest pain. 05/22/2025 Patient sitting comfortably in bed at time of examination. Denies any chest pain, shortness of breath, nausea/vomiting or abdominal pain. Plan for coronary angiography on Saturday, continue antiplatelet therapy, atorvastatin and nitropaste as needed. Review of Systems Review of Systems: All systems reviewed & are unremarkable except as noted in HPI and below Exam Const: General: comfortable and no acute distress Other: , male, nontoxic appearance HENMT: Face/Nose/Sinus: Normal nares present Mouth: Yes moist mucous m embranes Eyes: General: appearance normal, both eyes and all related structures Sclera: sclerae normal Pupils: Equal, round and reactive pupils present EOM: EOMs intact bilaterally Resp: Effort & Inspection: normal respiratory effort Auscultation: clear to auscultation bilaterally Cardio: Rate: regular rate Rhythm: regular rhythm Other: S1-S2 present without murmur, rub, ectopy GI: Other: Abdomen soft, nondistended, nontender. Normoactive bowel sounds in all quadrants. Skin: General skin exam: normal color and no rashes or lesions noted Wounds: no wounds Neuro: Cranial nerves: Yes Equal, round and reactive pupils present Speech: normal speech Motor exam (neuro): 5/5 motor strength present throughout Sensory Exam: normal sensation Other: A&O x4 Extrem: General: normal to inspection Psych: Mental Status: mental status grossly normal Affect: normal affect Other: Good insight and judgment, pleasant Objective Data Vital Signs Vital Signs: Vital Signs - 24 hr 05/21/25 09:40 05/21/25 09:49 05/21/25 09:49 Temperature 97.7 F Pulse Rate 66 65 Respiratory Rate 19 Blood Pressure 159/94 H Pulse Oximetry 100 98 Oxygen Delivery Room Air Room Air 05/21/25 11:43 05/21/25 12:55 05/21/25 13:00 Temperature Pulse Rate 78 73 71 Respiratory Rate 18 16 19 Blood Pressure 133/83 144/86 H 110/80 Pulse Oximetry 97 100 98 Oxygen Delivery 05/21/25 13:06 05/21/25 13:35 05/21/25 14:00 Temperature Pulse Rate 81 67 62 Respiratory Rate 14 18 Blood Pressure 123/78 122/93 H Pulse Oximetry 98 99 Oxygen Delivery 05/21/25 14:07 05/21/25 16:00 05/21/25 16:00 Temperature 97.9 F 97.5 F L Pulse Rate 64 67 Respiratory Rate 20 20 Blood Pressure 140/66 119/61 Pulse Oximetry 95 98 Oxygen Delivery Room Air 05/21/25 16:00 05/21/25 18:00 05/21/25 19:58 Temperature 97.7 F Pulse Rate 69 68 67 Respiratory Rate 16 Blood Pressure 117/68 Pulse Oximetry 100 Oxygen Delivery 05/21/25 20:00 05/21/25 20:50 05/21/25 22:00 Temperature Pulse Rate 67 70 60 Respiratory Rate 16 Blood Pressure Pulse Oximetry 100 Oxygen Delivery Room Air 05/22/25 00:00 05/22/25 00:00 05/22/25 00:00 Temperature 97.7 F Pulse Rate 72 72 62 Respiratory Rate 16 16 Blood Pressure 108/55 L Pulse Oximetry 98 98 Oxygen Delivery Room Air 05/22/25 02:00 05/22/25 04:00 05/22/25 04:00 Temperature 97.6 F Pulse Rate 71 69 64 Respiratory Rate 14 Blood Pressure 120/55 L Pulse Oximetry 99 Oxygen Delivery 05/22/25 04:00 05/22/25 06:00 Temperature Pulse Rate 64 71 Respiratory Rate 14 Blood Pressure Pulse Oximetry 99 Oxygen Delivery Room Air Intake/Output Intake/Output: Intake & Output 05/19/25 05/20/25 05/21/25 05/22/25 23:59 23:59 23:59 23:59 Intake Total 440 500 Balance 440 500 Meds/Results Medications: Active Medications Generic Name Dose Route Start Last Admin Trade Name Freq PRN Reason Stop Dose Admin Acetaminophen 650 mg 05/21/25 12:51 Acetaminophen 325 Mg Tablet PO Q4H PRN Mild Pain (1-3) or Fever Hydrocodone Bitart/Acetaminophen 1 tab 05/21/25 12:51 Hydrocodone/Acetaminophen (*Crx) 5-325 Mg Tablet PO Q4H PRN Pain Rated 4-6 Aspirin 81 mg 05/22/25 09:00 Aspirin 81 Mg Enteric Tablet PO QAM [facility] Atorvastatin Calcium 80 mg 05/21/25 13:55 05/21/25 15:14 Atorvastatin 40 Mg Tablet PO 80 mg DAILY NIGEL Administration Clopidogrel Bisulfate 75 mg 05/21/25 13:55 05/21/25 14:44 Clopidogrel Bisulfate 75 Mg Tablet PO Not Given DAILY [facility] Duloxetine HCl 60 mg 05/21/25 13:55 05/21/25 14:44 Duloxetine Hcl 60 Mg Capsule.Dr PO Not Given DAILY [facility] Enoxaparin Sodium 80 mg 05/21/25 16:00 05/21/25 15:14 Enoxaparin 80 Mg/0.8 Ml Syringe SUB-Q 80 mg Q12HR NIGEL Administration Gabapentin 900 mg 05/21/25 14:50 05/21/25 19:24 Gabapentin 300 Mg Capsule PO 900 mg TID NIGEL Administration Morphine Sulfate 4 mg 05/21/25 12:51 Morphine Sulfate (*Crx) 4 Mg/Ml Inj IV PUSH Q2H PRN Pain Rated 7-10 Nitroglycerin 0.4 mg 05/21/25 13:37 Nitroglycerin Sl 0.4 Mg Tablet SUBLINGUAL Q5M PRN Chest Pain Nitroglycerin 1 inch 05/21/25 18:00 05/22/25 06:13 Nitroglycerin Ointment 1 Inch Dose TRANSDERM Not Given Q6HR [facility] Ondansetron HCl 4 mg 05/21/25 12:51 Ondansetron Inj 4 Mg/2 Ml Vial IV PUSH Q4H PRN Nausea Pantoprazole Sodium 40 mg 05/21/25 13:55 05/21/25 14:43 Pantoprazole 40 Mg Tablet PO Not Given QAM [facility] Radiology Results: ITS Impressions Chest X-Ray 05/21/25 10:31 Impression: No acute cardiopulmonary abnormality. Labs Labs: Laboratory Results - last 24 hr 05/21/25 05/21/25 05/21/25 09:50 12:32 15:54 WBC 7.5 RBC 5.56 Hgb 17.2 Hct 50.8 MCV 91.4 MCH 30.9 MCHC 33.9 RDW 12.9 Plt Count 251 MPV 9.6 Immature Gran % (Auto) 0.4 Neut % (Auto) 63.1 Lymph % (Auto) 23.1 [place] % (Auto) 11.1 H Eos % (Auto) 1.6 Baso % (Auto) 0.7 Lymph # (Auto) 1.73 [place] # (Auto) 0.8 H Eos # (Auto) 0.1 Baso # (Auto) 0.1 Abs Immat Gran (auto) 0.03 Absolute Neuts (auto) 4.7 Absolute Nucleated RBC 0.000 Nucleated RBC % 0.0 PT 12.7 INR 0.9 APTT 26.7 Sodium 137 Potassium 3.9 Chloride 100 Carbon Dioxide 30 Anion Gap 7 BUN 15 Creatinine 0.81 Estim Creat Clear Calc 82 Estimated GFR > 60 Glucose 119 H Calcium 9.4 Total Bilirubin 0.7 AST 23 ALT 23 Alkaline Phosphatase 79 Troponin I < 0.012 < 0.012 < 0.012 Total Protein 7.5 Albumin 4.5 Triglycerides Cholesterol LDL Cholesterol Direct HDL Direct Lipase 91 05/22/25 03:36 WBC 9.8 RBC 5.05 Hgb 15.8 Hct 46.6 MCV 92.3 MCH 31.3 MCHC 33.9 RDW 13.0 Plt Count 228 MPV 10.2 Immature Gran % (Auto) 0.3 Neut % (Auto) 56.4 Lymph % (Auto) 31.4 [place] % (Auto) 9.2 H Eos % (Auto) 2.2 Baso % (Auto) 0.5 Lymph # (Auto) 3.07 [place] # (Auto) 0.9 H Eos # (Auto) 0.2 Baso # (Auto) 0.1 Abs Immat Gran (auto) 0.03 Absolute Neuts (auto) 5.5 Absolute Nucleated RBC 0.000 Nucleated RBC % 0.0 PT INR APTT Sodium 135 L Potassium 3.9 Chloride 102 Carbon Dioxide 26 Anion Gap 7 BUN 14 Creatinine 0.79 Estim Creat Clear Calc 84 Estimated GFR > 60 Glucose 107 Calcium 8.7 Total Bilirubin AST ALT Alkaline Phosphatase Troponin I Total Protein Albumin Triglycerides 272 H Cholesterol 137 LDL Cholesterol Direct 65 HDL Direct 28 Lipase Quality VTE Prophylaxis VTE prophylaxis: mechanical ordered
[2025-05-22] MEDS: ENOXAPARIN 80 MG/0.8 ML SYRINGE SUB-Q ×2 (08:30→20:14)
[2025-05-22] MEDS: GABAPENTIN 300 MG CAPSULE 900 MG PO ×3 (08:30→18:49)
[2025-05-22] MEDS: DULoxetine HCL 60 MG CAPSULE.DR PO (08:30)
[2025-05-22] MEDS: ASPIRIN 81 MG ENTERIC TABLET PO (08:31)
[2025-05-22] MEDS: CLOPIDOGREL BISULFATE 75 MG TABLET PO (08:31)
[2025-05-22] MEDS: PANTOPRAZOLE 40 MG TABLET PO (08:31)
[2025-05-22] MEDS: ATORVASTATIN 40 MG TABLET 80 MG PO (08:31)
--- NOTE | 2025-05-22 11:56 | P.PNCA_ITS ---
Progress Note: A&P Assessment and Plan (1) Chest pain: Code(s): R07.9 - Chest pain, unspecified Status: Acute (2) Coronary artery disease: Qualifiers: Coronary Disease-Associated Artery/Lesion type: [place] artery [place] vs. transplanted heart: [place]q heart Associated angina: without angina Qualified Code(s): I25.10 - Atherosclerotic heart disease of [place]q coronary artery without angina pectoris Code(s): I25.10 - Atherosclerotic heart disease of [place]iiq coronary artery without angina pectoris Status: Acute Plan 60-year-old man with coronary artery disease concerning chest pain but objectively no evidence of ACS. Plan on follow-up left heart catheterization on Saturday morning. Will start metoprolol because of the ventricular ectopic activity that is noted. Continue Lovenox until tomorrow night. Jose Mendoza MD [facility] Subjective Date/time seen: Date of service: 05/22/25 11:56 Interval history: Follow-up visit in this 60-year-old man with: Coronary artery disease status post emergency circumflex/OM 2 PCI with acute SC in the remote past status post additional PCI in the same vessel elsewhere approximately 2-3 years ago. He enters the hospital with concerning chest pain but with no ischemic ECG changes and normal troponins. He does have a lot of asymptomatic ventricular ectopic activity on telemetry in short runs of nonsustained VT Exam Const: General: comfortable and no acute distress Other: Pleasant white male no apparent distress feels well today HENMT: Mouth: Yes moist mucous membranes Eyes: Sclera: sclerae normal Neck: Neck: supple and no JVD Resp: Effort & Inspection: normal respiratory effort Auscultation: clear to auscultation bilaterally Cardio: Rate: regular rate Rhythm: regular rhythm GI: GI Palp: Yes Soft to palpation Auscultation: normal bowel sounds Skin: General skin exam: normal color Neuro: Other: Alert and oriented x3 Objective Data Vital Signs Vital Signs: Vital Signs - 24 hr 05/21/25 12:55 05/21/25 13:00 05/21/25 13:06 Temperature Pulse Rate 73 71 81 Respiratory Rate 16 19 14 Blood Pressure 144/86 H 110/80 123/78 Pulse Oximetry 100 98 98 Oxygen Delivery 05/21/25 13:35 05/21/25 14:00 05/21/25 14:07 Temperature 36.6 C Pulse Rate 67 62 64 Respiratory Rate 18 20 Blood Pressure 122/93 H 140/66 Pulse Oximetry 99 95 Oxygen Delivery 05/21/25 16:00 05/21/25 16:00 05/21/25 16:00 Temperature 36.4 C L Pulse Rate 67 69 Respiratory Rate 20 Blood Pressure 119/61 Pulse Oximetry 98 Oxygen Delivery Room Air 05/21/25 18:00 05/21/25 19:58 05/21/25 20:00 Temperature 36.5 C Pulse Rate 68 67 67 Respiratory Rate 16 Blood Pressure 117/68 Pulse Oximetry 100 Oxygen Delivery 05/21/25 20:50 05/21/25 22:00 05/22/25 00:00 Temperature 36.5 C Pulse Rate 70 60 72 Respiratory Rate 16 16 Blood Pressure 108/55 L Pulse Oximetry 100 98 Oxygen Delivery Room Air 05/22/25 00:00 05/22/25 00:00 05/22/25 02:00 Temperature Pulse Rate 72 62 71 Respiratory Rate 16 Blood Pressure Pulse Oximetry 98 Oxygen Delivery Room Air 05/22/25 04:00 05/22/25 04:00 05/22/25 04:00 Temperature 36.4 C Pulse Rate 69 64 64 Respiratory Rate 14 14 Blood Pressure 120/55 L Pulse Oximetry 99 99 Oxygen Delivery Room Air 05/22/25 06:00 05/22/25 07:46 05/22/25 07:59 Temperature 36.4 C Pulse Rate 71 76 64 Respiratory Rate 16 14 Blood Pressure 102/70 Pulse Oximetry 97 99 Oxygen Delivery Room Air 05/22/25 08:00 Temperature Pulse Rate 77 Respiratory Rate Blood Pressure Pulse Oximetry Oxygen Delivery Intake/Output Intake/Output: Intake & Output 05/19/25 05/20/25 05/21/25 05/22/25 23:59 23:59 23:59 23:59 Intake Total 440 740 Balance 440 740 Meds/Results Medications: Active Medications Generic Name Dose Route Start Last Admin Trade Name Freq PRN Reason Stop Dose Admin Acetaminophen 650 mg 05/21/25 12:51 Acetaminophen 325 Mg Tablet PO Q4H PRN Mild Pain (1-3) or Fever Hydrocodone Bitart/Acetaminophen 1 tab 05/21/25 12:51 Hydrocodone/Acetaminophen (*Crx) 5-325 Mg Tablet PO Q4H PRN Pain Rated 4-6 Aspirin 81 mg 05/22/25 09:00 05/22/25 08:31 Aspirin 81 Mg Enteric Tablet PO 81 mg QAM NIGEL Administration Atorvastatin Calcium 80 mg 05/21/25 13:55 05/22/25 08:31 Atorvastatin 40 Mg Tablet PO 80 mg DAILY NIGEL Administration Clopidogrel Bisulfate 75 mg 05/21/25 13:55 05/22/25 08:31 Clopidogrel Bisulfate 75 Mg Tablet PO 75 mg DAILY NIGEL Administration Duloxetine HCl 60 mg 05/21/25 13:55 05/22/25 08:30 Duloxetine Hcl 60 Mg Capsule.Dr PO 60 mg DAILY NIGEL Administration Enoxaparin Sodium 80 mg 05/21/25 16:00 05/22/25 08:30 Enoxaparin 80 Mg/0.8 Ml Syringe SUB-Q 80 mg Q12HR NIGEL Administration Gabapentin 900 mg 05/21/25 14:50 05/22/25 08:30 Gabapentin 300 Mg Capsule PO 900 mg TID NIGEL Administration Morphine Sulfate 4 mg 05/21/25 12:51 Morphine Sulfate (*Crx) 4 Mg/Ml Inj IV PUSH Q2H PRN Pain Rated 7-10 Nitroglycerin 0.4 mg 05/21/25 13:37 Nitroglycerin Sl 0.4 Mg Tablet SUBLINGUAL Q5M PRN Chest Pain Nitroglycerin 1 inch 05/21/25 18:00 05/22/25 06:13 Nitroglycerin Ointment 1 Inch Dose TRANSDERM Not Given Q6HR [facility] Ondansetron HCl 4 mg 05/21/25 12:51 Ondansetron Inj 4 Mg/2 Ml Vial IV PUSH Q4H PRN Nausea Pantoprazole Sodium 40 mg 05/21/25 13:55 05/22/25 08:31 Pantoprazole 40 Mg Tablet PO 40 mg QAM NIGEL Administration Radiology Results: ITS Impressions Chest X-Ray 05/21/25 10:31 Impression: No acute cardiopulmonary abnormality. Labs Labs: Laboratory Results - last 24 hr 05/21/25 05/21/25 05/22/25 12:32 15:54 03:36 WBC 9.8 RBC 5.05 Hgb 15.8 Hct 46.6 MCV 92.3 MCH 31.3 MCHC 33.9 RDW 13.0 Plt Count 228 MPV 10.2 Immature Gran % (Auto) 0.3 Neut % (Auto) 56.4 Lymph % (Auto) 31.4 [place] % (Auto) 9.2 H Eos % (Auto) 2.2 Baso % (Auto) 0.5 Lymph # (Auto) 3.07 [place] # (Auto) 0.9 H Eos # (Auto) 0.2 Baso # (Auto) 0.1 Abs Immat Gran (auto) 0.03 Absolute Neuts (auto) 5.5 Absolute Nucleated RBC 0.000 Nucleated RBC % 0.0 Sodium 135 L Potassium 3.9 Chloride 102 Carbon Dioxide 26 Anion Gap 7 BUN 14 Creatinine 0.79 Estim Creat Clear Calc 84 Estimated GFR > 60 Glucose 107 Calcium 8.7 Troponin I < 0.012 < 0.012 Triglycerides 272 H Cholesterol 137 LDL Cholesterol Direct 65 HDL Direct 28
[2025-05-22] MEDS: METOPROLOL SUCCINATE EXT REL 25 MG TABCR PO (14:30)
--- NOTE | 2025-05-22 15:06 | PC.NURSE ---
On 05/22/25, the student, [ Berenice Lawler ], provided care and completed [facility] documentation on this patient. I have reviewed the student's documentation and agree with the findings.
[2025-05-23] VITALS (17 sets, daily range): BP systolic 101–129; BP diastolic 55–88; PULSE 60–75; RESP 15–20; TEMP 36.2–36.6; O2SAT 95–99
--- NOTE | 2025-05-23 07:30 | P.PNIM_ITS ---
Progress Note: A&P Assessment and Plan (1) Intermittent chest pain: Code(s): R07.9 - Chest pain, unspecified Status: Acute Assessment and Plan: The patient initially presented with 1 week of intermittent chest pressure and generalized weakness on 05/05. At that time he reported some associated nausea and diaphoresis. Declined admission for further cardiac workup at that time. Presented on 05/21 for re-evaluation after his PCP became concerned that he had EKG changes. Reviewed EKGs completed today, no significant ST depressions or elevations. Repeat EKG now showing increased PVCs. * continue serial troponins, thus far negative x2 * nitro SL p.r.n. * continue daily aspirin, atorvastatin, Plavix * telemetry monitoring * cardiology consulted, will likely undergo stress test or cardiac catheterization on Saturday (05/24) * Plan for left heart catheterization tomorrow morning * Continue anti-platelet therapy, atorvastatin and nitro paste * Continue Lovenox until tonight (2) Hyperlipidemia: Qualifiers: Hyperlipidemia type: mixed hyperlipidemia Qualified Code(s): E78.2 - Mi xed hyperlipidemia Code(s): E78.5 - Hyperlipidemia, unspecified Status: Chronic Assessment and Plan: * Continue atorvastatin (3) Essential hypertension: Code(s): I10 - Essential (primary) hypertension Status: Resolved Assessment and Plan: * chronic, currently 102/70, stable and does not require daily antihyp ertensives. * monitor Plan Diet: Heart healthy GI Prophylaxis: n/a DVT Prophylaxis: SCDs IV fluids: None Lines/Tubes: Peripheral IV Code Status: Full code Subjective Date/time seen: 05/23/25 07:30 Interval history: 60 y/o M with PMH of coronary artery disease x2 stents, hypertension, hyperlipidemia, and atrial fibrillation presents with intermittent chest pain. 05/23/2025 Patient sitting comfortably in bed at time of examination. Denies any chest pain or shortness of breath at this time. Started on metoprolol for ventricular ectopic activity, continue Lovenox until tonight. Plan for left heart catheterization tomorrow morning. Patient otherwise stable and has no complaints. Review of Systems Review of Systems: All systems reviewed & are unremarkable except as noted in HPI and below Exam Const: General: comfortable and no acute distress Other: , male, nontoxic appearance HENMT: Face/Nose/Sinus: Normal nares present Mouth: Yes moist mucous membranes Eyes: General: appearance normal, both eyes and all related structures Sclera: sclerae normal Pupils: Equal, round and reactive pupils present EOM: EOMs intact bilaterally Resp: Effort & Inspection: normal respiratory effort Auscultation: clear to auscultation bilaterally Cardio: Rate: regular rate Rhythm: regular rhythm Other: S1-S2 present without murmur, rub, ectopy GI: Other: Abdomen soft, nondistended, nontender. Normoactive bowel sounds in all quadrants. Skin: General skin exam: normal color and no rashes or lesions noted Wounds: no wounds Neuro: Cranial nerves: Yes Equal, round and reactive pupils present Speech: normal speech Motor exam (neuro): 5/5 motor strength present throughout Sensory Exam: normal sensation Other: A&O x4 Extrem: General: normal to inspection Psych: Mental Status: mental status grossly normal Affect: normal affect Other: Good insight and judgment, pleasant Objective Data Vital Signs Vital Signs: Vital Signs - 24 hr 05/22/25 07:46 05/22/25 07:59 05/22/25 08:00 Temperature 97.6 F Pulse Rate 76 64 77 Respiratory Rate 16 14 Blood Pressure 102/70 Pulse Oximetry 97 99 Oxygen Delivery Room Air 05/22/25 10:00 05/22/25 12:00 05/22/25 12:00 Temperature 97.7 F Pulse Rate 69 64 69 Respiratory Rate 14 Blood Pressure 124/64 Pulse Oximetry 94 Oxygen Delivery 05/22/25 12:00 05/22/25 14:00 05/22/25 15:49 Temperature 97.7 F Pulse Rate 64 70 64 Respiratory Rate 14 14 Blood Pressure 115/82 Pulse Oximetry 99 95 Oxygen Delivery Room Air 05/22/25 16:00 05/22/25 16:00 05/22/25 18:00 Temperature Pulse Rate 67 64 95 Respiratory Rate 14 Blood Pressure Pulse Oximetry 99 Oxygen Delivery Room Air 05/22/25 20:00 05/22/25 20:00 05/22/25 20:00 Temperature 97.8 F Pulse Rate 61 70 Respiratory Rate 17 Blood Pressure 126/79 Pulse Oximetry 99 99 Oxygen Delivery Room Air 05/22/25 22:00 05/23/25 00:00 05/23/25 00:00 Temperature Pulse Rate 68 64 Respiratory Rate Blood Pressure Pulse Oximetry 97 Oxygen Delivery Room Air 05/23/25 00:00 05/23/25 01:59 05/23/25 03:53 Temperature 97.6 F Pulse Rate 71 74 Respiratory Rate 19 Blood Pressure 127/60 Pulse Oximetry 97 97 Oxygen Delivery Room Air 05/23/25 04:00 05/23/25 04:00 05/23/25 06:00 Temperature 97.6 F Pulse Rate 65 65 65 Respiratory Rate 16 Blood Pressure 117/69 Pulse Oximetry 98 Oxygen Delivery Intake/Output Intake/Output: Intake & Output 05/20/25 05/21/25 05/22/25 05/23/25 23:59 23:59 23:59 23:59 Intake Total 440 1560 422 Balance 440 1560 422 Meds/Results Medications: Active Medications Generic Name Dose Route Start Last Admin Trade Name Freq PRN Reason Stop Dose Admin Acetaminophen 650 mg 05/21/25 12:51 Acetaminophen 325 Mg Tablet PO Q4H PRN Mild Pain (1-3) or Fever Hydrocodone Bitart/Acetaminophen 1 tab 05/21/25 12:51 Hydrocodone/Acetaminophen (*Crx) 5-325 Mg Tablet PO Q4H PRN Pain Rated 4-6 Aspirin 81 mg 05/22/25 09:00 05/22/25 08:31 Aspirin 81 Mg Enteric Tablet PO 81 mg QAM NIGEL Administration Atorvastatin Calcium 80 mg 05/21/25 13:55 05/22/25 08:31 Atorvastatin 40 Mg Tablet PO 80 mg DAILY NIGEL Administration Clopidogrel Bisulfate 75 mg 05/21/25 13:55 05/22/25 08:31 Clopidogrel Bisulfate 75 Mg Tablet PO 75 mg DAILY NIGEL Administration Duloxetine HCl 60 mg 05/21/25 13:55 05/22/25 08:30 Duloxetine Hcl 60 Mg Capsule.Dr PO 60 mg DAILY NIGEL Administration Enoxaparin Sodium 80 mg 05/21/25 16:00 05/22/25 20:14 Enoxaparin 80 Mg/0.8 Ml Syringe SUB-Q 80 mg Q12HR NIGEL Administration Gabapentin 900 mg 05/21/25 14:50 05/22/25 18:49 Gabapentin 300 Mg Capsule PO 900 mg TID NIGEL Administration Metoprolol Succinate 25 mg 05/22/25 12:00 05/22/25 14:30 Metoprolol Succinate Ext Rel 25 Mg Tabcr PO 25 mg QAM NIGEL Administration Morphine Sulfate 4 mg 05/21/25 12:51 Morphine Sulfate (*Crx) 4 Mg/Ml Inj IV PUSH Q2H PRN Pain Rated 7-10 Nitroglycerin 0.4 mg 05/21/25 13:37 Nitroglycerin Sl 0.4 Mg Tablet SUBLINGUAL Q5M PRN Chest Pain Nitroglycerin 1 inch 05/21/25 18:00 05/23/25 05:01 Nitroglycerin Ointment 1 Inch Dose TRANSDERM Not Given Q6HR NIGEL Ondansetron HCl 4 mg 05/21/25 12:51 Ondansetron Inj 4 Mg/2 Ml Vial IV PUSH Q4H PRN Nausea Pantoprazole Sodium 40 mg 05/21/25 13:55 05/22/25 08:31 Pantoprazole 40 Mg Tablet PO 40 mg QAM [facility] Administration Radiology Results: ITS Impressions Chest X-Ray 05/21/25 10:31 Impression: No acute cardiopulmonary abnormality. Quality VTE Prophylaxis VTE prophylaxis: mechanical ordered
[2025-05-23 08:00] LABS: Hematocrit 48.1 % (42.0-52.0); Hemoglobin 16.4 g/dL (14.0-18.0); Immature Granulocyte Percent A 0.3 % (0-0.5); Lymphocytes Absolute Auto 2.23 K/mm3 (0.9-3.2); Mean Corpuscular HGB Conc 34.1 g/dl (32-36); Mean Corpuscular Hemoglobin 31.2 pg (26-34); Mean Corpuscular Volume 91.6 fl (80-100); Nucleated Red Blood Cells Absolute Auto 0.000 K/mm3 (0.0-0.012); Nucleated Red Blood Cells Perc 0.0 % (0.0-0.2); Platelet Count Result 236 k/mm3 (150-375); Red Blood Count 5.25 M/mm3 (4.6-6.20); White Blood Count 7.0 K/mm3 (4.5-10.0)
[2025-05-23 08:15] LABS: Alanine Aminotransferase 25 U/L (6-50); Albumin Level 4.0 g/dL (3.5-5.1); Alkaline Phosphatase 63 U/L (38-126); Anion Gap 7 mmol/L (4-12); Aspartate Amino Transferase 25 U/L (17-59); Bilirubin,Total 0.9 mg/dL (0.2-1.3); Blood Urea Nitrogen 13 mg/dL (9-20); Calcium 9.0 mg/dL (8.4-10.2); Carbon Dioxide 26 mmol/L (22-30); Chloride 101 mmol/L (98-107); Estimated CRCL calculation 80 ml/min; Estimated Glomerular Filt Rate > 60; Glucose 190 mg/dL (65-110); Potassium 4.2 mmol/L (3.4-5.0); Sodium 134 mmol/L (137-145); Total Protein 6.8 g/dL (6.3-8.2)
[2025-05-23] MEDS: METOPROLOL SUCCINATE EXT REL 25 MG TABCR PO (09:05)
[2025-05-23] MEDS: ATORVASTATIN 40 MG TABLET 80 MG PO (09:06)
[2025-05-23] MEDS: ASPIRIN 81 MG ENTERIC TABLET PO (09:06)
[2025-05-23] MEDS: PANTOPRAZOLE 40 MG TABLET PO (09:06)
[2025-05-23] MEDS: CLOPIDOGREL BISULFATE 75 MG TABLET PO (09:06)
[2025-05-23] MEDS: ENOXAPARIN 80 MG/0.8 ML SYRINGE SUB-Q (09:06)
[2025-05-23] MEDS: DULoxetine HCL 60 MG CAPSULE.DR PO (09:06)
[2025-05-23] MEDS: GABAPENTIN 300 MG CAPSULE 900 MG PO ×2 (09:06→16:06)
--- NOTE | 2025-05-23 11:25 | PM.PNCARD ---
Progress Note: A&P Assessment and Plan (1) Chest pain: Code(s): R07.9 - Chest pain, unspecified Status: Acute Plan 60-year-old man with coronary disease status post 2 previous interventions in the circumflex presenting with chest pain that is creating concern although it is atypical and ECG and enzymes look normal. Because of his symptoms and because of the ventricular ectopy follow-up angiography is appropriate and is planned for tomorrow morning. After discharge she will follow up with his established box shook patcher, Dr. Ben Mendoza MD [facility] Subjective Date/time seen: Date of service: 05/23/25 11:25 Interval history: Follow-up visit in this 60-year-old man with: Coronary artery disease status post emergency circumflex/OM 2 PCI with acute PR in the remote past status post additional PCI in the same vessel elsewhere approximately 2-3 years ago. He enters the hospital with concerning chest pain but with no ischemic ECG changes and normal troponins. He does have a lot of asymptomatic ventricular ectopic activity on telemetry in short runs of nonsustained VT Date of service 05/23/2025: Patient is feeling well again this morning. Fewer PVCs with the addition of metoprolol to the regimen. Plans for follow-up angiography tomorrow we discussed he has been through catheterization to other times he therefore has no significant questions. Further recommendations will be pending those findings Exam Const: General: comfortable and no acute distress Other: Pleasant white male no apparent distress feels well today HENMT: Face/Nose/Sinus: Normal nares present Mouth: Yes moist mucous membranes Eyes: Sclera: sclerae normal Pupils: Equal, round and reactive pupils present Neck: Neck: supple and no JVD Other: No carotid bruits Resp: Effort & Inspection: normal respiratory effort Auscultation: clear to auscultation bilaterally Cardio: Rate: regular rate Rhythm: regular rhythm Other: No audible gallop murmur or rub GI: Auscultation: normal bowel sounds Skin: General skin exam: normal color Neuro: Cranial nerves: Yes Equal, round and reactive pupils present Other: Alert and oriented x3 Extrem: General: normal to inspection Objective Data Vital Signs Vital Signs: Vital Signs - 24 hr 05/22/25 12:00 05/22/25 12:00 05/22/25 12:00 Temperature 36.5 C Pulse Rate 64 69 64 Respiratory Rate 14 14 Blood Pressure 124/64 Pulse Oximetry 94 99 Oxygen Delivery Room Air 05/22/25 14:00 05/22/25 15:49 05/22/25 16:00 Temperature 36.5 C Pulse Rate 70 64 67 Respiratory Rate 14 Blood Pressure 115/82 Pulse Oximetry 95 Oxygen Delivery 05/22/25 16:00 05/22/25 18:00 05/22/25 20:00 Temperature 36.6 C Pulse Rate 64 95 61 Respiratory Rate 14 17 Blood Pressure 126/79 Pulse Oximetry 99 99 Oxygen Delivery Room Air 05/22/25 20:00 05/22/25 20:00 05/22/25 22:00 Temperature Pulse Rate 70 68 Respiratory Rate Blood Pressure Pulse Oximetry 99 Oxygen Delivery Room Air 05/23/25 00:00 05/23/25 00:00 05/23/25 00:00 Temperature 36.4 C Pulse Rate 64 71 Respiratory Rate 19 Blood Pressure 127/60 Pulse Oximetry 97 97 Oxygen Delivery Room Air 05/23/25 01:59 05/23/25 03:53 05/23/25 04:00 Temperature Pulse Rate 74 65 Respiratory Rate Blood Pressure Pulse Oximetry 97 Oxygen Delivery Room Air 05/23/25 04:00 05/23/25 06:00 05/23/25 07:53 Temperature 36.4 C Pulse Rate 65 65 Respiratory Rate 16 Blood Pressure 117/69 Pulse Oximetry 98 97 Oxygen Delivery Room Air 05/23/25 08:00 05/23/25 09:05 Temperature 36.4 C Pulse Rate 67 68 Respiratory Rate 20 Blood Pressure 113/55 L Pulse Oximetry 99 Oxygen Delivery Intake/Output Intake/Output: Intake & Output 05/20/25 05/21/25 05/22/25 05/23/25 23:59 23:59 23:59 23:59 Intake Total 440 1560 662 Balance 440 1560 662 Meds/Results Medications: Active Medications Generic Name Dose Route Start Last Admin Trade Name Freq PRN Reason Stop Dose Admin Acetaminophen 650 mg 05/21/25 12:51 Acetaminophen 325 Mg Tablet PO Q4H PRN Mild Pain (1-3) or Fever Hydrocodone Bitart/Acetaminophen 1 tab 05/21/25 12:51 Hydrocodone/Acetaminophen (*Crx) 5-325 Mg Tablet PO Q4H PRN Pain Rated 4-6 Aspirin 81 mg 05/22/25 09:00 05/23/25 09:06 Aspirin 81 Mg Enteric Tablet PO 81 mg QAM NIGEL Administration Atorvastatin Calcium 80 mg 05/21/25 13:55 05/23/25 09:06 Atorvastatin 40 Mg Tablet PO 80 mg DAILY NIGEL Administration Clopidogrel Bisulfate 75 mg 05/21/25 13:55 05/23/25 09:06 Clopidogrel Bisulfate 75 Mg Tablet PO 75 mg DAILY NIGEL Administration Duloxetine HCl 60 mg 05/21/25 13:55 05/23/25 09:06 Duloxetine Hcl 60 Mg Capsule.Dr PO 60 mg DAILY NIGEL Administration Gabapentin 900 mg 05/21/25 14:50 05/23/25 09:06 Gabapentin 300 Mg Capsule PO 900 mg TID NIGEL Administration Metoprolol Succinate 25 mg 05/22/25 12:00 05/23/25 09:05 Metoprolol Succinate Ext Rel 25 Mg Tabcr PO 25 mg QAM NIGEL Administration Morphine Sulfate 4 mg 05/21/25 12:51 Morphine Sulfate (*Crx) 4 Mg/Ml Inj IV PUSH Q2H PRN Pain Rated 7-10 Nitroglycerin 0.4 mg 05/21/25 13:37 Nitroglycerin Sl 0.4 Mg Tablet SUBLINGUAL Q5M PRN Chest Pain Nitroglycerin 1 inch 05/21/25 18:00 05/23/25 05:01 Nitroglycerin Ointment 1 Inch Dose TRANSDERM Not Given Q6HR [facility] Ondansetron HCl 4 mg 05/21/25 12:51 Ondansetron Inj 4 Mg/2 Ml Vial IV PUSH Q4H PRN Nausea Pantoprazole Sodium 40 mg 05/21/25 13:55 05/23/25 09:06 Pantoprazole 40 Mg Tablet PO 40 mg QAM NIGEL Administration Radiology Results: ITS Impressions Chest X-Ray 05/21/25 10:31 Impression: No acute cardiopulmonary abnormality. Labs Labs: Laboratory Results - last 24 hr 05/23/25 07:48 WBC 7.0 RBC 5.25 Hgb 16.4 Hct 48.1 MCV 91.6 MCH 31.2 MCHC 34.1 RDW 13.0 Plt Count 236 MPV 9.8 Immature Gran % (Auto) 0.3 Neut % (Auto) 52.6 Lymph % (Auto) 31.9 [place] % (Auto) 11.5 H Eos % (Auto) 3.0 Baso % (Auto) 0.7 Lymph # (Auto) 2.23 [place] # (Auto) 0.8 H Eos # (Auto) 0.2 Baso # (Auto) 0.1 Abs Immat Gran (auto) 0.02 Absolute Neuts (auto) 3.7 Absolute Nucleated RBC 0.000 Nucleated RBC % 0.0 Sodium 134 L Potassium 4.2 Chloride 101 Carbon Dioxide 26 Anion Gap 7 BUN 13 Creatinine 0.83 Estim Creat Clear Calc 80 Estimated GFR > 60 Glucose 190 H Calcium 9.0 Total Bilirubin 0.9 AST 25 ALT 25 Alkaline Phosphatase 63 Total Protein 6.8 Albumin 4.0
[2025-05-23] MEDS: NITROGLYCERIN OINTMENT 1 INCH DOSE TRANSDERM (16:06)
[2025-05-23] MEDS: ONDANSETRON INJ 4 MG/2 ML VIAL IV PUSH (16:56)
[2025-05-24] VITALS (37 sets, daily range): BP systolic 102–149; BP diastolic 53–93; PULSE 55–98; RESP 12–20; TEMP 36.4–36.6; O2SAT 95–100
--- NOTE | 2025-05-24 | ECHO_ITS ---
Patient Info Name: Ainrudh Orozco Age: 60 years : 1965 Gender: Male Ht: 68 in Wt: 181 lbs BSA: 2.00 m2 HR: 62 bpm BP: 118 / 87 mmHg Heart Rhythm: Indeterminant Technical Quality: Good Exam Date: 05/24/2025 11:24 AM Patient Status: I Admit Date: 05/23/2025 Exam Type: CA echo doppler color flow Complete two-dimensional, color flow and Doppler transthoracic echocardiogram is performed. Staff Referring Physician: Pavel Kilgore MD Hot Die Picker: Lucas Sunshine III Attending Provider: Kyle Anderson MD Summary 1. Arrythmia, EF accuracy may be affected on report. 2. Complete two-dimensional, color flow and Doppler transthoracic echocardiogram is performed. Left Ventricle The left ventricle is mildly dilated with mildly reduced systolic function. The left ventricular ejection fraction visually estimated to be 45-50%. Right Ventricle The right ventricle is normal in size and systolic function. Left Atria The left atrium is normal size. Right Atria Right atrium is normal size. Atrial Septum The atrial septum is normal. Aortic Valve The aortic valve is trileaflet and opens well. There is no aortic regurgitation. Pulmonic Valve The pulmonic valve is normal. There is no pulmonic valve regurgitation. Mitral Valve The mitral valve is normal. There is no mitral regurgitation. Tricuspid Valve The tricuspid valve is normal. There is no tricuspid regurgitation. Pericardium/Pleural Pericardium is normal in appearance with no evidence for significant pericardial effusion. Inferior Vena Cava Normal inferior vena cava with >50% collapse upon inspiration consistent with normal right atrial pressure, 3 mmHg. Aorta The aortic root at the level of the sinus of Valsalva measures 3.3 cm in diameter. Left Ventricular Outflow Tract Name Value Normal LVOT 2D LVOT Diameter 2.5 cm LVOT Doppler LVOT Peak Velocity 78 cm/s LVOT Peak Gradient 2 mmHg LVOT Mean Gradient 1 mmHg LVOT VTI 19 cm LVOT VTI/AV VTI Ratio 0.6 LVOT Stroke Volume 97 ml LVOT CO 6.1 l/min LVOT CI 3.0 l/min/m2 Pulmonic Valve Name Value Normal PV Doppler PV Peak Velocity 98 cm/s PV Peak Gradient 4 mmHg PV Mean Gradient 2 mmHg Mitral Valve Name Value Normal MV Regurgitation Doppler MR Peak Gradient 6 mmHg MV Diastolic Function MV E Peak Velocity 86 cm/s MV A Peak Velocity 114 cm/s MV E/A 0.8 MV Decel Time (PW) 252 ms MV Annular TDI MV E/e' (Septal) 13.0 MV E/e' (Lateral) 8.4 MV E/e' (Average) 10.7 Tricuspid Valve Name Value Normal Estimated PAP/RSVP RA Pressure 3 mmHg <=5 TV Annular TDI TV Lateral Julia s' Velocity 16.1 cm/s >=9.5 Aortic Valve Name Value Normal AV Doppler AV Peak Velocity 136 cm/s AV Peak Gradient 7 mmHg AV Mean Gradient 4 mmHg AV VTI 32 cm AV Area (Cont Eq VTI) 3.1 cm2 >=3.0 AV Area (Cont Eq Ayan) 2.9 cm2 AV DI (Ayan) 0.58 AV Regurgitation 2D LVOT Area 5.1 cm2 Ventricles Name Value Normal LV Dimensions 2D/MM IVS Diastolic Thickness (2D) 0.9 cm 0.6-1.0 LVID Diastole (2D) 6.0 cm 4.2-5.8 LVIW Diastolic Thickness (2D) 0.7 cm 0.6-1.0 LVID Systole (2D) 5.2 cm 2.5-4.0 LVOT Diameter 2.5 cm LV Mass (2D Cubed) 170.13 g 88.00-224.00 LV Mass Index (2D Cubed) 85 g/m2 49-115 Relative Wall Thickness (2D) 0.22 <=0.42 LV Fractional Shortening/Ejection Fraction 2D/MM LV Fractional Shortening (2D) 13 % 25-43 LV EF (2D Teichholz) 27 % LV Diastolic Volume (4C MOD) 185 ml LV EF (4C MOD) 52 % LV Diastolic Volume (2C MOD) 159 ml LV EF (2C MOD) 39 % LV Diastolic Volume (BP MOD) 168 ml 62-150 LV Diastolic Volume Index (BP MOD) 84 ml/m2 34-74 LV Systolic Volume (BP MOD) 92 ml 21-61 LV Systolic Volume Index (BP MOD) 46 ml/m2 11-31 LV EF (BP MOD) 45 % 52-72 LV Diastolic Length (4C) 9.9 cm LV Systolic Length (4C) 7.8 cm LV Stroke Volume (4C MOD) 97 ml Atria Name Value Normal LA Dimensions LA Volume (4C A-L) 77 ml LA Volume (BP A-L) 66 ml RA Dimensions RA Systolic Major Pierson Length (4C) 5.7 cm 2.1-2.7 RA Area (4C) 20.4 cm2 <=18.0 Report Signatures
[2025-05-24 04:20] LABS: Hematocrit 47.1 % (42.0-52.0); Hemoglobin 15.8 g/dL (14.0-18.0); Immature Granulocyte Percent A 0.6 % (0-0.5); Lymphocytes Absolute Auto 2.76 K/mm3 (0.9-3.2); Mean Corpuscular HGB Conc 33.5 g/dl (32-36); Mean Corpuscular Hemoglobin 31.2 pg (26-34); Mean Corpuscular Volume 93.1 fl (80-100); Nucleated Red Blood Cells Absolute Auto 0.000 K/mm3 (0.0-0.012); Nucleated Red Blood Cells Perc 0.0 % (0.0-0.2); Platelet Count Result 240 k/mm3 (150-375); Red Blood Count 5.06 M/mm3 (4.6-6.20); White Blood Count 8.7 K/mm3 (4.5-10.0)
[2025-05-24 04:53] LABS: Alanine Aminotransferase 21 U/L (6-50); Albumin Level 3.9 g/dL (3.5-5.1); Alkaline Phosphatase 59 U/L (38-126); Anion Gap 7 mmol/L (4-12); Aspartate Amino Transferase 21 U/L (17-59); Bilirubin,Total 0.8 mg/dL (0.2-1.3); Blood Urea Nitrogen 15 mg/dL (9-20); Calcium 8.6 mg/dL (8.4-10.2); Carbon Dioxide 27 mmol/L (22-30); Chloride 100 mmol/L (98-107); Estimated CRCL calculation 76 ml/min; Estimated Glomerular Filt Rate > 60; Glucose 108 mg/dL (65-110); Potassium 3.8 mmol/L (3.4-5.0); Sodium 134 mmol/L (137-145); Total Protein 6.6 g/dL (6.3-8.2)
--- NOTE | 2025-05-24 07:28 | P.PNIM_ITS ---
Progress Note: A&P Assessment and Plan (1) Intermittent chest pain: Code(s): R07.9 - Chest pain, unspecified Status: Acute Assessment and Plan: The patient initially presented with 1 week of intermittent chest pressure and generalized weakness on 05/05. At that time he reported some associated nausea and diaphoresis. Declined admission for further cardiac workup at that time. Presented on 05/21 for re-evaluation after his PCP became concerned that he had EKG changes. Reviewed EKGs completed today, no significant ST depressions or elevations. Repeat EKG now showing increased PVCs. * continue serial troponins, thus far negative x2 * nitro SL p.r.n. * continue daily aspirin, atorvastatin, Plavix * telemetry monitoring * cardiology consulted, cardiac catheterization today * Continue anti-platelet therapy, atorvastatin and nitro paste * Left MCA widely patent without significant obstructive disease, lad down to 20% ostial stenosis, left circumflex is codominant vessel with 10-20% stenosis, om 3 has stent with 10-20% ISR, cardia to 40% stenosis leading to OM 4 branch, ramus has ostial 10-20% stenosis, RCA: Dominant vessel with 50% stenosis and proximal body followed by 30-40% stenosis in mid body, LV end-diastolic pressure 14 mmHg, low normal LVEF, no significant gradient across aortic valve on catheter pullback. Opening AO pressure 95/50 to a closing AO pressure 111/82 * Echocardiogram: EF of 45-50% (2) Hyperlipidemia: Qualifiers: Hyperlipidemia type: mixed hyperlipidemia Qualified Code(s): E78.2 - Mixed hyperlipidemia Code(s): E78.5 - Hyperlipidemia, unspecified Status: Chronic Assessment and Plan: * Continue atorvastatin (3) Essential hypertension: Code(s): I10 - Essential (primary) hypertension Status: Resolved Assessment and Plan: * chronic, currently 102/70, stable and does not require daily antihypertensives. * monitor Plan Diet: Heart healthy GI Prophylaxis: n/a DVT Prophylaxis: SCDs IV fluids: None Lines/Tubes: Peripheral IV Code Status: Full code Subjective Date/time seen: 05/24/25 07:28 Interval history: 60 y/o M with PMH of coronary artery disease x2 stents, hypertension, hyperlipidemia, and atrial fibrillation presents with intermittent chest pain. 05/24/2025 Patient sitting comfortably in bed at time of examination. Plan for left heart catheterization today. Vitals/Blood work remain stable. Echo also performed - EF 45-50%. Pending cardiology for further recommendations. Examined after [facility] - not having any chest pain, SOB, n/v or dizziness at this moment, however heart cath did not show any major findings that would explain presenting symptoms. Will obtain orthostatic vitals and PT/OT evals for d/c planning Review of Systems Review of Systems: All systems reviewed & are unremarkable except as noted in HPI and below Exam Const: General: comfortable and no acute distress Other: , male, nontoxic appearance HENMT: Face/Nose/Sinus: Normal nares present Mouth: Yes moist mucous membranes Eyes: General: appearance normal, both eyes and all related structures Sclera: sclerae normal Pupils: Equal, round and reactive pupils present EOM: EOMs intact bilaterally Resp: Effort & Inspection: normal respiratory effort Auscultation: clear to auscultation bilaterally Cardio: Rate: regular rate Rhythm: regular rhythm Other: S1-S2 present without murmur, rub, ectopy GI: Other: Abdomen soft, nondistended, nontender. Normoactive bowel sounds in all quadrants. Skin: General skin exam: normal color and no rashes or lesions noted Wounds: no wounds Neuro: Cranial nerves: Yes Equal, round and reactive pupils present Speech: normal speech Motor exam (neuro): 5/5 motor strength present throughout Sensory Exam: normal sensation Other: A&O x4 Extrem: General: normal to inspection Psych: Mental Status: mental status grossly normal Affect: normal affect Other: Good insight and judgment, pleasant Objective Data Vital Signs Vital Signs: Vital Signs - 24 hr 05/23/25 07:53 05/23/25 08:00 05/23/25 08:00 Temperature 97.6 F Pulse Rate 67 73 Respiratory Rate 20 Blood Pressure 113/55 L Pulse Oximetry 97 99 Oxygen Delivery Room Air 05/23/25 09:05 05/23/25 10:00 05/23/25 11:45 Temperature 97.9 F Pulse Rate 68 67 75 Respiratory Rate 18 Blood Pressure 129/88 Pulse Oximetry 95 Oxygen Delivery 05/23/25 12:00 05/23/25 12:00 05/23/25 14:00 Temperature Pulse Rate 66 66 Respiratory Rate Blood Pressure Pulse Oximetry 97 Oxygen Delivery Room Air 05/23/25 16:00 05/23/25 16:00 05/23/25 16:00 Temperature 97.5 F L Pulse Rate 63 60 Respiratory Rate 20 Blood Pressure 119/74 Pulse Oximetry 99 97 Oxygen Delivery Room Air 05/23/25 18:00 05/23/25 20:00 05/23/25 20:00 Temperature 97.3 F L Pulse Rate 60 71 69 Respiratory Rate 16 Blood Pressure 104/62 Pulse Oximetry 98 Oxygen Delivery 05/23/25 22:00 05/23/25 23:40 05/24/25 00:00 Temperature 97.1 F L Pulse Rate 61 62 56 L Respiratory Rate 15 Blood Pressure 101/71 Pulse Oximetry 96 Oxygen Delivery 05/24/25 02:00 05/24/25 03:46 05/24/25 04:00 Temperature 97.5 F L Pulse Rate 61 55 L 63 Respiratory Rate 16 Blood Pressure 102/65 Pulse Oximetry 98 Oxygen Delivery 05/24/25 06:00 Temperature Pulse Rate 65 Respiratory Rate Blood Pressure Pulse Oximetry Oxygen Delivery Intake/Output Intake/Output: Intake & Output 05/21/25 05/22/25 05/23/25 05/24/25 23:59 23:59 23:59 23:59 Intake Total 440 1560 1642 200 Balance 440 1560 1642 200 Meds/Results Medications: Active Medications Generic Name Dose Route Start Last Admin Trade Name Freq PRN Reason Stop Dose Admin Acetaminophen 650 mg 05/21/25 12:51 Acetaminophen 325 Mg Tablet PO Q4H PRN Mild Pain (1-3) or Fever Hydrocodone Bitart/Acetaminophen 1 tab 05/21/25 12:51 Hydrocodone/Acetaminophen (*Crx) 5-325 Mg Tablet PO Q4H PRN Pain Rated 4-6 Aspirin 81 mg 05/22/25 09:00 05/23/25 09:06 Aspirin 81 Mg Enteric Tablet PO 81 mg QAM NIGEL Administration Atorvastatin Calcium 80 mg 05/21/25 13:55 05/23/25 09:06 Atorvastatin 40 Mg Tablet PO 80 mg DAILY NIGEL Administration Clopidogrel Bisulfate 75 mg 05/21/25 13:55 05/23/25 09:06 Clopidogrel Bisulfate 75 Mg Tablet PO 75 mg DAILY NIGEL Administration Duloxetine HCl 60 mg 05/21/25 13:55 05/23/25 09:06 Duloxetine Hcl 60 Mg Capsule.Dr PO 60 mg DAILY NIGEL Administration Gabapentin 900 mg 05/21/25 14:50 05/23/25 16:06 Gabapentin 300 Mg Capsule PO 900 mg TID NIGEL Administration Metoprolol Succinate 25 mg 05/22/25 12:00 05/23/25 09:05 Metoprolol Succinate Ext Rel 25 Mg Tabcr PO 25 mg QAM NIGEL Administration Morphine Sulfate 4 mg 05/21/25 12:51 Morphine Sulfate (*Crx) 4 Mg/Ml Inj IV PUSH Q2H PRN Pain Rated 7-10 Nitroglycerin 0.4 mg 05/21/25 13:37 Nitroglycerin Sl 0.4 Mg Tablet SUBLINGUAL Q5M PRN Chest Pain Nitroglycerin 1 inch 05/21/25 18:00 05/24/25 06:18 Nitroglycerin Ointment 1 Inch Dose TRANSDERM Not Given Q6HR [facility]ENDING S[facility] TO [facility] Ondansetron HCl 4 mg 05/21/25 12:51 05/23/25 16:56 Ondansetron Inj 4 Mg/2 Ml Vial IV PUSH 4 mg Q4H PRN Administration Nausea Pantoprazole Sodium 40 mg 05/21/25 13:55 05/23/25 09:06 Pantoprazole 40 Mg Tablet PO 40 mg QAM NIGEL Administration Radiology Results: ITS Impressions Chest X-Ray 05/21/25 10:31 Impression: No acute cardiopulmonary abnormality. Labs Labs: Laboratory Results - last 24 hr 05/23/25 05/24/25 07:48 03:54 WBC 7.0 8.7 RBC 5.25 5.06 Hgb 16.4 15.8 Hct 48.1 47.1 MCV 91.6 93.1 MCH 31.2 31.2 MCHC 34.1 33.5 RDW 13.0 12.8 Plt Count 236 240 MPV 9.8 9.9 Immature Gran % (Auto) 0.3 0.6 H Neut % (Auto) 52.6 51.8 Lymph % (Auto) 31.9 31.7 [place] % (Auto) 11.5 H 12.4 H Eos % (Auto) 3.0 2.8 Baso % (Auto) 0.7 0.7 Lymph # (Auto) 2.23 2.76 [place] # (Auto) 0.8 H 1.1 H Eos # (Auto) 0.2 0.2 Baso # (Auto) 0.1 0.1 Abs Immat Gran (auto) 0.02 0.05 H Absolute Neuts (auto) 3.7 4.5 Absolute Nucleated RBC 0.000 0.000 Nucleated RBC % 0.0 0.0 Sodium 134 L 134 L Potassium 4.2 3.8 Chloride 101 100 Carbon Dioxide 26 27 Anion Gap 7 7 BUN 13 15 Creatinine 0.83 0.88 Estim Creat Clear Calc 80 76 Estimated GFR > 60 > 60 Glucose 190 H 108 Calcium 9.0 8.6 Total Bilirubin 0.9 0.8 AST 25 21 ALT 25 21 Alkaline Phosphatase 63 59 Total Protein 6.8 6.6 Albumin 4.0 3.9 Quality VTE Prophylaxis VTE prophylaxis: mechanical ordered
[2025-05-24] MEDS: CLOPIDOGREL BISULFATE 75 MG TABLET PO (08:14)
[2025-05-24] MEDS: METOPROLOL SUCCINATE EXT REL 25 MG TABCR PO (08:14)
[2025-05-24] MEDS: ATORVASTATIN 40 MG TABLET 80 MG PO (08:14)
[2025-05-24] MEDS: ASPIRIN 81 MG ENTERIC TABLET PO (08:14)
[2025-05-24] MEDS: PANTOPRAZOLE 40 MG TABLET PO (08:14)
[2025-05-24] MEDS: GABAPENTIN 300 MG CAPSULE 900 MG PO ×3 (08:14→18:44)
[2025-05-24] MEDS: DULoxetine HCL 60 MG CAPSULE.DR PO (08:15)
--- NOTE | 2025-05-24 09:05 | P.SEDATION_ITS ---
Moderate Sedation Note-Pt Data Patient Data Allergies Allergy/AdvReac Type Severity Reaction Status Date / Time No Known Allergies Allergy Verified 05/21/25 14:11 Home Medications ?Medication ?Instructions ?Recorded ?Confirmed ?Type aspirin 81 mg tablet,delayed 81 mg PO QAM #100 tabs 05/21/25 Rx release pantoprazole 40 mg tablet,delayed 40 mg PO QAM 3 05/21/25 History release gabapentin 300 mg capsule 900 mg (3 x 300 mg) PO TID # 270 02/06/24 05/21/25 Rx caps atorvastatin 80 mg tablet See Rx Instructions .Route 1 05/21/25 Rx .COMPLEX #90 tabs duloxetine 60 mg capsule,delayed 60 mg PO DAILY #90 ca ps 12/23/24 05/21/25 Rx release clopidogrel 75 mg tablet 75 mg PO DAILY 05/21/2504/29 History nitroglycerin 0.4 mg sublingual 0.4 mg sublingual Q5M PRN chest 05/21/25 05/21/25 History tablet pain Current Medications: Active Medications Acetaminophen (Acetaminophen 325 Mg Tablet) 650 mg PO Q4H PRN PRN Reason: Mild Pain (1-3) or Fever Hydrocodone Bitart/Acetaminophen (Hydrocodone/Acetaminophen (*Crx) 5-325 Mg Tablet) 1 tab PO Q4H PRN PRN Reason: Pain Rated 4-6 Aspirin (Aspirin 81 Mg Enteric Tablet) 81 mg PO QAM [facility] Last Admin: 05/24/25 08:14 Dose: 81 mg Atorvastatin Calcium (Atorvastatin 40 Mg Tablet) 80 mg PO DAILY [facility] Last Admin: 05/24/25 08:14 Dose: 80 mg Clopidogrel Bisulfate (Clopidogrel Bisulfate 75 Mg Tablet) 75 mg PO DAILY [facility] Last Admin: 05/24/25 08:14 Dose: 75 mg Duloxetine HCl (Duloxetine Hcl 60 Mg Capsule.Dr) 60 mg PO DAILY [facility] Last Admin: 05/24/25 08:15 Dose: 60 mg Gabapentin (Gabapentin 300 Mg Capsule) 900 mg PO TID [facility] Last Admin: 05/24/25 08:14 Dose: 900 mg Metoprolol Succinate (Metoprolol Succinate Ext Rel 25 Mg Tabcr) 25 mg PO QAM [facility] Last Admin: 05/24/25 08:14 Dose: 25 mg Morphine Sulfate (Morphine Sulfate (*Crx) 4 Mg/Ml Inj) 4 mg IV PUSH Q2H PRN PRN Reason: Pain Rated 7-10 Nitroglycerin (Nitroglycerin Sl 0.4 Mg Tablet) 0.4 mg SUBLINGUAL Q5M PRN PRN Reason: Chest Pain Nitroglycerin (Nitroglycerin Ointment 1 Inch Dose) 1 inch TRANSDERM Q6HR [facility] Last Admin: 05/24/25 06:18 Dose: Not Given Ondansetron HCl (Ondansetron Inj 4 Mg/2 Ml Vial) 4 mg IV PUSH Q4H PRN PRN Reason: Nausea Last Admin: 05/23/25 16:56 Dose: 4 mg Pantoprazole Sodium (Pantoprazole 40 Mg Tablet) 40 mg PO QAM [facility] Last Admin: 05/24/25 08:14 Dose: 40 mg Sedation/Anesthesia: No previous sedation/anesthesia problems (including family history). [facility] Past Medical History Medical History Atrial fibrillation with controlled ventricular rate Hyperlipidemia Neuropathy Coronary artery disease Essential hypertension BPH associated with nocturia Screening for prostate cancer BMI 28.0-28.9,adult Lumbar spondylosis Surgical History Surgical History History of coronary artery stent placement x1 2020, x1 2022 H/O rotator cuff surgery Family History Family History Sibling Patient's sister is in good health Patient's brother is in good health Family history of hepatitis Father Patient's father is Heart disease Mother No problems noted. Social History Social History Smoking packs per day: 2 Smoking cigarettes per day: 40.0 Years smoked: 45 Smoking pack-years: 90.00 Smoking status: Former smoker Tobacco type: cigarettes Second hand tobacco smoke exposure: Yes Smoking end date: 05/05/25 Alcohol intake: former Drinks per week: 1 Substance use: current Substance use type: marijuana Do You Feel Safe in your Home?: Yes Lack of Transportation: No Lack of Food: Never True Current Housing: I Have Housing Concerned About Future Housing: No Difficulty Paying Gas/Electric Bills: No Difficulty Paying for Meds: No Currently Unemployed: No Education: High School Diploma/GED Difficulty w/ Childcare or Family Care: No Living arrangements: alone Occupation/Education: unemployed 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 Gender identity (if verbalized by the patient): Male Spiritual care concerns: Yes Mod Sed Physical Exam Physical Exam Pre Procedural Exam: Normal: Lungs, Heart Size and Heart Rhythm and Variation: Heart Rate (frequent ventricular ectopy) Hours since solid foods: 12 Hours since liquid intake: 12 Mallampati Classification: class II Internal Medicine - PN: Obj Da Vital Signs Vital Signs: Vital Signs - 24 hr 05/23/25 10:00 05/23/25 11:45 05/23/25 12:00 Temperature 36.6 C Pulse Rate 67 75 66 Respiratory Rate 18 Blood Pressure 129/88 Pulse Oximetry 95 Oxygen Delivery 05/23/25 12:00 05/23/25 14:00 05/23/25 16:00 Temperature 36.4 C L Pulse Rate 66 63 Respiratory Rate 20 Blood Pressure 119/74 Pulse Oximetry 97 99 Oxygen Delivery Room Air 05/23/25 16:00 05/23/25 16:00 05/23/25 18:00 Temperature Pulse Rate 60 60 Respiratory Rate Blood Pressure Pulse Oximetry 97 Oxygen Delivery Room Air 05/23/25 20:00 05/23/25 20:00 05/23/25 22:00 Temperature 36.3 C L Pulse Rate 71 69 61 Respiratory Rate 16 Blood Pressure 104/62 Pulse Oximetry 98 Oxygen Delivery 05/23/25 23:40 05/24/25 00:00 05/24/25 02:00 Temperature 36.2 C L Pulse Rate 62 56 L 61 Respiratory Rate 15 Blood Pressure 101/71 Pulse Oximetry 96 Oxygen Delivery 05/24/25 03:46 05/24/25 04:00 05/24/25 06:00 Temperature 36.4 C L Pulse Rate 55 L 63 65 Respiratory Rate 16 Blood Pressure 102/65 Pulse Oximetry 98 Oxygen Delivery 05/24/25 07:37 05/24/25 08:00 05/24/25 08:00 Temperature 36.4 C Pulse Rate 65 63 Respiratory Rate 18 Blood Pressure 105/65 Pulse Oximetry 98 97 Oxygen Delivery Room Air 05/24/25 08:14 Temperature Pulse Rate 70 Respiratory Rate Blood Pressure Pulse Oximetry Oxygen Delivery Intake/Output Intake/Output: Intake & Output 05/21/25 05/22/25 05/23/25 05/24/25 23:59 23:59 23:59 23:59 Intake Total 440 1560 1642 200 Balance 440 1560 1642 200 Meds/Results Medications: Active Medications Generic Name Dose Route Start Last Admin Trade Name Freq PRN Reason Stop Dose Admin Acetaminophen 650 mg 05/21/25 12:51 Acetaminophen 325 Mg Tablet PO Q4H PRN Mild Pain (1-3) or Fever Hydrocodone Bitart/Acetaminophen 1 tab 05/21/25 12:51 Hydrocodone/Acetaminophen (*Crx) 5-325 Mg Tablet PO Q4H PRN Pain Rated 4-6 Aspirin 81 mg 05/22/25 09:00 05/24/25 08:14 Aspirin 81 Mg Enteric Tablet PO 81 mg QAM [facility] Administration Atorvastatin Calcium 80 mg 05/21/25 13:55 05/24/25 08:14 Atorvastatin 40 Mg Tablet PO 80 mg DAILY NIGEL Administration Clopidogrel Bisulfate 75 mg 05/21/25 13:55 05/24/25 08:14 Clopidogrel Bisulfate 75 Mg Tablet PO 75 mg DAILY NIGEL Administration Duloxetine HCl 60 mg 05/21/25 13:55 05/24/25 08:15 Duloxetine Hcl 60 Mg Capsule.Dr PO 60 mg DAILY NIGEL Administration Gabapentin 900 mg 05/21/25 14:50 05/24/25 08:14 Gabapentin 300 Mg Capsule PO 900 mg TID NIGEL Administration Metoprolol Succinate 25 mg 05/22/25 12:00 05/24/25 08:14 Metoprolol Succinate Ext Rel 25 Mg Tabcr PO 25 mg QAM NIGEL Administration Morphine Sulfate 4 mg 05/21/25 12:51 Morphine Sulfate (*Crx) 4 Mg/Ml Inj IV PUSH Q2H PRN Pain Rated 7-10 Nitroglycerin 0.4 mg 05/21/25 13:37 Nitroglycerin Sl 0.4 Mg Tablet SUBLINGUAL Q5M PRN Chest Pain Nitroglycerin 1 inch 05/21/25 18:00 05/24/25 06:18 Nitroglycerin Ointment 1 Inch Dose TRANSDERM Not Given Q6HR NIGEL Ondansetron HCl 4 mg 05/21/25 12:51 05/23/25 16:56 Ondansetron Inj 4 Mg/2 Ml Vial IV PUSH 4 mg Q4H PRN Administration Nausea Pantoprazole Sodium 40 mg 05/21/25 13:55 05/24/25 08:14 Pantoprazole 40 Mg Tablet PO 40 mg QAM NIGEL Administration Radiology Results: ITS Impressions Chest X-Ray 05/21/25 10:31 Impression: No acute cardiopulmonary abnormality. Labs 05/24/25 03:54 05/24/25 03:54 Labs: Laboratory Results - last 24 hr 05/24/25 03:54 WBC 8.7 RBC 5.06 Hgb 15.8 Hct 47.1 MCV 93.1 MCH 31.2 MCHC 33.5 RDW 12.8 Plt Count 240 MPV 9.9 Immature Gran % (Auto) 0.6 H Neut % (Auto) 51.8 Lymph % (Auto) 31.7 [place] % (Auto) 12.4 H Eos % (Auto) 2.8 Baso % (Auto) 0.7 Lymph # (Auto) 2.76 [place] # (Auto) 1.1 H Eos # (Auto) 0.2 Baso # (Auto) 0.1 Abs Immat Gran (auto) 0.05 H Absolute Neuts (auto) 4.5 Absolute Nucleated RBC 0.000 Nucleated RBC % 0.0 Sodium 134 L Potassium 3.8 Chloride 100 Carbon Dioxide 27 Anion Gap 7 BUN 15 Creatinine 0.88 Estim Creat Clear Calc 76 Estimated GFR > 60 Glucose 108 Calcium 8.6 Total Bilirubin 0.8 AST 21 ALT 21 Alkaline Phosphatase 59 Total Protein 6.6 Albumin 3.9 ASA Classification/Sedation ASA Classification/Sedation ASA Class: III Emergent: No Risks: Risks, benefits and alternatives explained and patient/family accepted plan for sedation. Patient re-evaluated immediately prior to sedation.
--- NOTE | 2025-05-24 09:05 | WPDHPUPDATE1 ---
History and Physical Update Update Date/Time: 05/24/25 09:05 History and Physical has been reviewed, including an updated exam of the patient. There are NO changes in the patient's condition. Risks, benefits, and alternatives have been discussed and questions answered. Patient agrees to proceed with procedure.
--- NOTE | 2025-05-24 09:06 | P.SEDATION_ITS ---
Moderate Sedation Note-Pt Data Patient Data Allergies Allergy/AdvReac Type Severity Reaction Status Date / Time No Known Allergies Allergy Verified 05/21/25 14:11 Home Medications ?Medication ?Instructions ?Recorded ?Confirmed ?Type aspirin 81 mg tablet,delayed 81 mg PO QAM #100 tabs 05/21/25 Rx release pantoprazole 40 mg tablet,delayed 40 mg PO QAM 3 05/21/25 History release gabapentin 300 mg capsule 900 mg (3 x 300 mg) PO TID # 270 02/06/24 05/21/25 Rx caps atorvastatin 80 mg tablet See Rx Instructions .Route 1 05/21/25 Rx .COMPLEX #90 tabs duloxetine 60 mg capsule,delayed 60 mg PO DAILY #90 ca ps 12/23/24 05/21/25 Rx release clopidogrel 75 mg tablet 75 mg PO DAILY 05/21/2504/29 History nitroglycerin 0.4 mg sublingual 0.4 mg sublingual Q5M PRN chest 05/21/25 05/21/25 History tablet pain Current Medications: Active Medications Acetaminophen (Acetaminophen 325 Mg Tablet) 650 mg PO Q4H PRN PRN Reason: Mild Pain (1-3) or Fever Hydrocodone Bitart/Acetaminophen (Hydrocodone/Acetaminophen (*Crx) 5-325 Mg Tablet) 1 tab PO Q4H PRN PRN Reason: Pain Rated 4-6 Aspirin (Aspirin 81 Mg Enteric Tablet) 81 mg PO QAM [facility] Last Admin: 05/24/25 08:14 Dose: 81 mg Atorvastatin Calcium (Atorvastatin 40 Mg Tablet) 80 mg PO DAILY [facility] Last Admin: 05/24/25 08:14 Dose: 80 mg Clopidogrel Bisulfate (Clopidogrel Bisulfate 75 Mg Tablet) 75 mg PO DAILY [facility] Last Admin: 05/24/25 08:14 Dose: 75 mg Duloxetine HCl (Duloxetine Hcl 60 Mg Capsule.Dr) 60 mg PO DAILY [facility] Last Admin: 05/24/25 08:15 Dose: 60 mg Gabapentin (Gabapentin 300 Mg Capsule) 900 mg PO TID [facility] Last Admin: 05/24/25 08:14 Dose: 900 mg Metoprolol Succinate (Metoprolol Succinate Ext Rel 25 Mg Tabcr) 25 mg PO QAM [facility] Last Admin: 05/24/25 08:14 Dose: 25 mg Morphine Sulfate (Morphine Sulfate (*Crx) 4 Mg/Ml Inj) 4 mg IV PUSH Q2H PRN PRN Reason: Pain Rated 7-10 Nitroglycerin (Nitroglycerin Sl 0.4 Mg Tablet) 0.4 mg SUBLINGUAL Q5M PRN PRN Reason: Chest Pain Nitroglycerin (Nitroglycerin Ointment 1 Inch Dose) 1 inch TRANSDERM Q6HR [facility] Last Admin: 05/24/25 06:18 Dose: Not Given Ondansetron HCl (Ondansetron Inj 4 Mg/2 Ml Vial) 4 mg IV PUSH Q4H PRN PRN Reason: Nausea Last Admin: 05/23/25 16:56 Dose: 4 mg Pantoprazole Sodium (Pantoprazole 40 Mg Tablet) 40 mg PO QAM [facility] Last Admin: 05/24/25 08:14 Dose: 40 mg Sedation/Anesthesia: No previous sedation/anesthesia problems (including family history). [facility] Past Medical History Medical History Atrial fibrillation with controlled ventricular rate Hyperlipidemia Neuropathy Coronary artery disease Essential hypertension BPH associated with nocturia Screening for prostate cancer BMI 28.0-28.9,adult Lumbar spondylosis Surgical History Surgical History History of coronary artery stent placement x1 2020, x1 2022 H/O rotator cuff surgery Family History Family History Sibling Patient's sister is in good health Patient's brother is in good health Family history of hepatitis Father Patient's father is Heart disease Mother No problems noted. Social History Social History Smoking packs per day: 2 Smoking cigarettes per day: 40.0 Years smoked: 45 Smoking pack-years: 90.00 Smoking status: Former smoker Tobacco type: cigarettes Second hand tobacco smoke exposure: Yes Smoking end date: 05/05/25 Alcohol intake: former Drinks per week: 1 Substance use: current Substance use type: marijuana Do You Feel Safe in your Home?: Yes Lack of Transportation: No Lack of Food: Never True Current Housing: I Have Housing Concerned About Future Housing: No Difficulty Paying Gas/Electric Bills: No Difficulty Paying for Meds: No Currently Unemployed: No Education: High School Diploma/GED Difficulty w/ Childcare or Family Care: No Living arrangements: alone Occupation/Education: unemployed 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 Gender identity (if verbalized by the patient): Male Spiritual care concerns: Yes Mod Sed Physical Exam Physical Exam Pre Procedural Exam: Normal: Lungs, Heart Size and Heart Rhythm and Variation: Heart Rate (frequent ectopy) Hours since solid foods: 12 Hours since liquid intake: 12 Mallampati Classification: class II Internal Medicine - PN: Obj Da Vital Signs Vital Signs: Vital Signs - 24 hr 05/23/25 10:00 05/23/25 11:45 05/23/25 12:00 Temperature 36.6 C Pulse Rate 67 75 66 Respiratory Rate 18 Blood Pressure 129/88 Pulse Oximetry 95 Oxygen Delivery 05/23/25 12:00 05/23/25 14:00 05/23/25 16:00 Temperature 36.4 C L Pulse Rate 66 63 Respiratory Rate 20 Blood Pressure 119/74 Pulse Oximetry 97 99 Oxygen Delivery Room Air 05/23/25 16:00 05/23/25 16:00 05/23/25 18:00 Temperature Pulse Rate 60 60 Respiratory Rate Blood Pressure Pulse Oximetry 97 Oxygen Delivery Room Air 05/23/25 20:00 05/23/25 20:00 05/23/25 22:00 Temperature 36.3 C L Pulse Rate 71 69 61 Respiratory Rate 16 Blood Pressure 104/62 Pulse Oximetry 98 Oxygen Delivery 05/23/25 23:40 05/24/25 00:00 05/24/25 02:00 Temperature 36.2 C L Pulse Rate 62 56 L 61 Respiratory Rate 15 Blood Pressure 101/71 Pulse Oximetry 96 Oxygen Delivery 05/24/25 03:46 05/24/25 04:00 05/24/25 06:00 Temperature 36.4 C L Pulse Rate 55 L 63 65 Respiratory Rate 16 Blood Pressure 102/65 Pulse Oximetry 98 Oxygen Delivery 05/24/25 07:37 05/24/25 08:00 05/24/25 08:00 Temperature 36.4 C Pulse Rate 65 63 Respiratory Rate 18 Blood Pressure 105/65 Pulse Oximetry 98 97 Oxygen Delivery Room Air 05/24/25 08:14 Temperature Pulse Rate 70 Respiratory Rate Blood Pressure Pulse Oximetry Oxygen Delivery Intake/Output Intake/Output: Intake & Output 05/21/25 05/22/25 05/23/25 05/24/25 23:59 23:59 23:59 23:59 Intake Total 440 1560 1642 200 Balance 440 1560 1642 200 Meds/Results Medications: Active Medications Generic Name Dose Route Start Last Admin Trade Name Freq PRN Reason Stop Dose Admin Acetaminophen 650 mg 05/21/25 12:51 Acetaminophen 325 Mg Tablet PO Q4H PRN Mild Pain (1-3) or Fever Hydrocodone Bitart/Acetaminophen 1 tab 05/21/25 12:51 Hydrocodone/Acetaminophen (*Crx) 5-325 Mg Tablet PO Q4H PRN Pain Rated 4-6 Aspirin 81 mg 05/22/25 09:00 05/24/25 08:14 Aspirin 81 Mg Enteric Tablet PO 81 mg QAM NIGEL Administration Atorvastatin Calcium 80 mg 05/21/25 13:55 05/24/25 08:14 Atorvastatin 40 Mg Tablet PO 80 mg DAILY NIGEL Administration Clopidogrel Bisulfate 75 mg 05/21/25 13:55 05/24/25 08:14 Clopidogrel Bisulfate 75 Mg Tablet PO 75 mg DAILY NIGEL Administration Duloxetine HCl 60 mg 05/21/25 13:55 05/24/25 08:15 Duloxetine Hcl 60 Mg Capsule.Dr PO 60 mg DAILY NIGEL Administration Gabapentin 900 mg 05/21/25 14:50 05/24/25 08:14 Gabapentin 300 Mg Capsule PO 900 mg TID NIGEL Administration Metoprolol Succinate 25 mg 05/22/25 12:00 05/24/25 08:14 Metoprolol Succinate Ext Rel 25 Mg Tabcr PO 25 mg QAM NIGEL Administration Morphine Sulfate 4 mg 05/21/25 12:51 Morphine Sulfate (*Crx) 4 Mg/Ml Inj IV PUSH Q2H PRN Pain Rated 7-10 Nitroglycerin 0.4 mg 05/21/25 13:37 Nitroglycerin Sl 0.4 Mg Tablet SUBLINGUAL Q5M PRN Chest Pain Nitroglycerin 1 inch 05/21/25 18:00 05/24/25 06:18 Nitroglycerin Ointment 1 Inch Dose TRANSDERM Not Given Q6HR NIGEL Ondansetron HCl 4 mg 05/21/25 12:51 05/23/25 16:56 Ondansetron Inj 4 Mg/2 Ml Vial IV PUSH 4 mg Q4H PRN Administration Nausea Pantoprazole Sodium 40 mg 05/21/25 13:55 05/24/25 08:14 Pantoprazole 40 Mg Tablet PO 40 mg QAM NIGEL Administration Radiology Results: ITS Impressions Chest X-Ray 05/21/25 10:31 Impression: No acute cardiopulmonary abnormality. Labs 05/24/25 03:54 05/24/25 03:54 Labs: Laboratory Results - last 24 hr 05/24/25 03:54 WBC 8.7 RBC 5.06 Hgb 15.8 Hct 47.1 MCV 93.1 MCH 31.2 MCHC 33.5 RDW 12.8 Plt Count 240 MPV 9.9 Immature Gran % (Auto) 0.6 H Neut % (Auto) 51.8 Lymph % (Auto) 31.7 [place] % (Auto) 12.4 H Eos % (Auto) 2.8 Baso % (Auto) 0.7 Lymph # (Auto) 2.76 [place] # (Auto) 1.1 H Eos # (Auto) 0.2 Baso # (Auto) 0.1 Abs Immat Gran (auto) 0.05 H Absolute Neuts (auto) 4.5 Absolute Nucleated RBC 0.000 Nucleated RBC % 0.0 Sodium 134 L Potassium 3.8 Chloride 100 Carbon Dioxide 27 Anion Gap 7 BUN 15 Creatinine 0.88 Estim Creat Clear Calc 76 Estimated GFR > 60 Glucose 108 Calcium 8.6 Total Bilirubin 0.8 AST 21 ALT 21 Alkaline Phosphatase 59 Total Protein 6.6 Albumin 3.9 ASA Classification/Sedation ASA Classification/Sedation ASA Class: III Emergent: No Risks: Risks, benefits and alternatives explained and patient/family accepted plan for sedation. Patient re-evaluated immediately prior to sedation.
--- NOTE | 2025-05-24 11:05 | P.PCNCC_ITS ---
Cardiac Cath Procedure Note Date of procedure:: 05/24/25 Performing physician:: CATHETERIZATION LABORATORY REPORT Procedure Date:05/24/2025 Referring Physician: William Marques Anesthesia: Versed and Fentanyl were ordered and given in my presence at 1011, procedure ended at 1033. Supervision of nurse monitored moderate sedation with 2mg Versed and 100mcg Fentanyl was provided for 22 minutes. Pre-op Diagnosis: Chest pain, frequent ventricular ectopy Post-op Diagnosis: Chest pain, frequent ventricular ectopy Procedure(s): Left heart catheterization with coronary angiography Access Site: Right radial artery Brief History and Clinical Indications: 60-year-old man with coronary artery disease status post PCI x2 (OM 2020 and ramus 2022) who is an active smoker presented with chest pain found to frequent ventricular ectopy for which cardiac catheterization with possible PCI have been recommended. All risks, benefits and alternatives to left heart catheterization with or without percutaneous coronary intervention was discussed at length with the patient. Risk of complications including but not limited to bleeding, infection, arrhythmia, stroke, worsening kidney function, blood loss, groin hematoma, limb loss, emergency coronary artery bypass grafting, and even were discussed with the patient and all questions were answered. The patient understood and wished to proceed. Time out called, patient name, date of , medical record number, allergies, procedure performed, identify Linux Administrator, patient and staff member concurred with accurate data, procedure carried on. Findings: LEFT HEART CATHETERIZATION FINDINGS: 1. Left main: The left main coronary artery is widely patent without any significant obstructive disease. 2. Left anterior descending: The LAD has 10-20% ostial stenosis. The remainder of the vessel and the diagonal branches have luminal irregularities. 3. Left circumflex: The left circumflex artery is a co-dominant vessel with 10- 20% stenosis prior to the take off of the 2nd OM branch. The remainder of the left circumflex has luminal irregularities. OM3 has a stent with 10-20% ISR. Beyond the stent, there is 30-40% stenosis leading into the OM4 branch. 4. Ramus Intermedius: The ramus has ostial 10-20% stenosis. There is a patent stent in proximal body. The remainder of the vessel has luminal irregularities. 5. Right coronary artery: The RCA is a codominant vessel with 50% stenosis in its proximal body followed by area of 30-40% stenosis in its midbody. The remainder of the right coronary artery has diffuse 10-20% stenosis. 6. Left ventricle: A. End-diastolic pressure 14 mmHg. B. LV gram shows low normal LVEF. C. No significant gradient across aortic valve on catheter pullback. 7. Opening AO pressure 95/52 and closing AO pressure 111/82 Description of Procedure: Informed consent signed and placed in the chart. Patient transferred to equipment operator/laborer/supervisor room. Prepped and draped in usual sterile fashion. 2% lidocaine injected subcutaneously in right wrist area. 22-gauge venipuncture catheter used to access the right radial artery with the Seldinger technique. 6-FR slender sheath placed in right radial artery. Nitroglycerin 200mcg, Verapamil 2.5mg, and Heparin 5000U was given intraarterial through the sheath. J wire advanced under fluoroscopy. 5F TIG diagnostic catheter crossed into the left ventricle to record LVEDP and aortic valve gradient. After pull back, it was used to engaged Left Main Coronary Artery and Right Coronary Artery. Multiple orthogonal angiogram obtained and reviewed 5F Pigtail catheter crossed aortic valve to perform left ventriculogram. Hemostasis was achieved by application of TR band. Assessment: Moderate CAD Post Operative Condition: Stable No significant blood loss Disposition: Floor Plan: Continue aggressive medical therapy and risk factor modification. Obtain TTE [facility] Inter[facility]
[2025-05-24] MEDS: SODIUM CHLORIDE 0.9% IV 1,000 ML 125 ML IV CONT (11:13)
[2025-05-25] VITALS (7 sets, daily range): BP systolic 119–136; BP diastolic 70–94; PULSE 60–87; RESP 17; TEMP 36.4–36.5; O2SAT 96–98
[2025-05-25 03:55] LABS: Hematocrit 47.4 % (42.0-52.0); Hemoglobin 16.1 g/dL (14.0-18.0); Immature Granulocyte Percent A 0.3 % (0-0.5); Lymphocytes Absolute Auto 2.48 K/mm3 (0.9-3.2); Mean Corpuscular HGB Conc 34.0 g/dl (32-36); Mean Corpuscular Hemoglobin 31.6 pg (26-34); Mean Corpuscular Volume 92.9 fl (80-100); Nucleated Red Blood Cells Absolute Auto 0.000 K/mm3 (0.0-0.012); Nucleated Red Blood Cells Perc 0.0 % (0.0-0.2); Platelet Count Result 230 k/mm3 (150-375); Red Blood Count 5.10 M/mm3 (4.6-6.20); White Blood Count 7.5 K/mm3 (4.5-10.0)
[2025-05-25 04:22] LABS: Alanine Aminotransferase 30 U/L (6-50); Albumin Level 3.9 g/dL (3.5-5.1); Alkaline Phosphatase 62 U/L (38-126); Anion Gap 5 mmol/L (4-12); Aspartate Amino Transferase 32 U/L (17-59); Bilirubin,Total 0.7 mg/dL (0.2-1.3); Blood Urea Nitrogen 13 mg/dL (9-20); Calcium 8.6 mg/dL (8.4-10.2); Carbon Dioxide 27 mmol/L (22-30); Chloride 103 mmol/L (98-107); Estimated CRCL calculation 88 ml/min; Estimated Glomerular Filt Rate > 60; Glucose 112 mg/dL (65-110); Potassium 4.0 mmol/L (3.4-5.0); Sodium 135 mmol/L (137-145); Total Protein 6.7 g/dL (6.3-8.2)
--- NOTE | 2025-05-25 08:58 | P.PNCA_ITS ---
Progress Note: A&P Assessment and Plan (1) Chest pain: Code(s): R07.9 - Chest pain, unspecified Status: Acute Plan Chest pain/CAD. 60-year-old man with coronary disease status post 2 previous interventions in the circumflex presenting with chest pain that is creating concern although it is atypical and ECG and enzymes look normal. Because of his symptoms and because of the ventricular ectopy follow-up angiography was recom mended. He is s/p C with mild non-obstructive CAD noted. After discharge she will follow up with his established computer help desk representative, Dr. Contreras. Continue his aspirin 81 mg daily, plavix 75 mg daily and atorvastatin 80 mg daily PVCs. Noted to have frequent PVCs on tele monitor may be contributing to mild reduction in EF and chest pain. He has been started on low dose Toprol Xl 25 mg daily and would have him continue at discharge. His potassium is stable at 4. Magnesium on last check was 2. Would continue to monitor lytes and keep K>4 and Mag >2. Will benefit from OP tele monitoring HFmeF. With EF of 45-50% on echo. May be secondary to his frequent PVCs. No volume overload at this time. Would continue with Metoprolol XL 25mg daily. Can consider addition of ARB/ARNI on OP basis Hyperlipidemia. Continue atorvastatin 80 mg daily Patient rt radial site is S/D/I without hematoma today He is stable for dc home later today from CV standpoint and f/u with his computer help desk representative Dr. Cotnreras in the next 1-2 weeks Subjective Date/time seen: 05/25/25 08:58 Interval history: Follow-up visit in this 60-year-old man with: Coronary artery disease status post emergency circumflex/OM 2 PCI with acute AK in the remote past status post additional PCI in the same vessel elsewhere approximately 2-3 years ago. He enters the hospital with concerning chest pain but with no ischemic ECG changes and normal troponins. He does have a lot of asymptomatic ventricular ectopic activity on telemetry in short runs of nonsustained VT Date of service 05/23/2025: Patient is feeling well again this morning. Fewer PVCs with the addition of metoprolol to the regimen. Plans for follow-up angiography tomorrow we discussed he has been through catheterization to other times he therefore has no significant questions. Further recommendations will be pending those findings Date of service 05/25/26: Patient is sitting up on edge of bed. He is overall feeling well. No chest pain or SOB at this time. No dizziness or palpitations reported Review of Systems Review of Systems: All systems reviewed & are unremarkable except as noted in HPI and below Exam Const: General: comfortable and no acute distress Other: Pleasant white male no apparent distress feels well today HENMT: Face/Nose/Sinus: Normal nares present Mouth: Yes moist mucous membranes Eyes: Sclera: sclerae normal Pupils: Equal, round and reactive pupils present Neck: Neck: supple and no JVD Other: No carotid bruits Resp: Effort & Inspection: normal respiratory effort Auscultation: clear to auscultation bilaterally Cardio: Rate: regular rate Rhythm: regular rhythm Other: No audible gallop murmur or rub GI: Auscultation: normal bowel sounds Skin: General skin exam: normal color Neuro: Cranial nerves: Yes Equal, round and reactive pupils present Other: Alert and oriented x3 Extrem: General: normal to inspection Objective Data Vital Signs Vital Signs: Vital Signs - 24 hr 05/24/25 10:45 05/24/25 10:45 05/24/25 11:00 Temperature Pulse Rate 68 Pulse Rate [Right Radial] 68 62 Respiratory Rate 12 Blood Pressure 122/61 Pulse Oximetry 95 Oxygen Delivery Room Air 05/24/25 11:00 05/24/25 11:15 05/24/25 11:15 Temperature Pulse Rate 62 60 Pulse Rate [Right Radial] 60 Respiratory Rate 14 14 Blood Pressure 118/87 126/84 Pulse Oximetry 96 96 Oxygen Delivery Room Air Room Air 05/24/25 11:30 05/24/25 11:30 05/24/25 11:45 Temperature Pulse Rate 66 Pulse Rate [Right Radial] 66 62 Respiratory Rate 14 Blood Pressure 117/73 Pulse Oximetry 96 Oxygen Delivery Room Air 05/24/25 11:45 05/24/25 12:00 05/24/25 12:00 Temperature Pulse Rate 62 72 Pulse Rate [Right Radial] 72 Respiratory Rate 16 15 Blood Pressure 118/93 H 131/76 Pulse Oximetry 96 96 Oxygen Delivery Room Air Room Air 05/24/25 12:15 05/24/25 12:15 05/24/25 12:30 Temperature Pulse Rate 74 Pulse Rate [Right Radial] 74 62 Respiratory Rate 14 Blood Pressure 117/57 L Pulse Oximetry 96 Oxygen Delivery Room Air 05/24/25 12:30 05/24/25 12:45 05/24/25 12:45 Temperature Pulse Rate 62 66 Pulse Rate [Right Radial] 66 Respiratory Rate 16 15 Blood Pressure 129/60 136/89 Pulse Oximetry 96 95 Oxygen Delivery Room Air Room Air 05/24/25 13:00 05/24/25 13:00 05/24/25 13:15 Temperature Pulse Rate 66 Pulse Rate [Right Radial] 66 74 Respiratory Rate 16 Blood Pressure 126/87 Pulse Oximetry 97 Oxygen Delivery Room Air 05/24/25 13:15 05/24/25 13:30 05/24/25 13:30 Temperature Pulse Rate 74 70 Pulse Rate [Right Radial] 70 Respiratory Rate 14 15 Blood Pressure 133/77 149/89 H Pulse Oximetry 96 96 Oxygen Delivery Room Air Room Air 05/24/25 13:45 05/24/25 13:45 05/24/25 14:00 Temperature Pulse Rate 68 Pulse Rate [Right Radial] 68 68 Respiratory Rate 14 Blood Pressure 133/92 H Pulse Oximetry 96 Oxygen Delivery Room Air 05/24/25 14:00 05/24/25 14:15 05/24/25 14:15 Temperature Pulse Rate 68 68 Pulse Rate [Right Radial] 68 Respiratory Rate 15 16 Blood Pressure 118/85 130/83 Pulse Oximetry 96 96 Oxygen Delivery Room Air Room Air 05/24/25 14:30 05/24/25 14:30 05/24/25 14:45 Temperature Pulse Rate 66 66 Pulse Rate [Right Radial] 66 Respiratory Rate 15 16 Blood Pressure 141/73 H 141/73 H Pulse Oximetry 96 97 Oxygen Delivery Room Air Room Air 05/24/25 15:19 05/24/25 15:45 05/24/25 16:00 Temperature 36.4 C L Pulse Rate 63 67 Pulse Rate [Right Radial] 66 Respiratory Rate 18 20 Blood Pressure 128/53 L 114/72 Pulse Oximetry 95 100 97 Oxygen Delivery Room Air 05/24/25 16:00 05/24/25 16:20 05/24/25 16:45 Temperature Pulse Rate 67 98 Pulse Rate [Right Radial] 66 Respiratory Rate Blood Pressure 130/74 Pulse Oximetry Oxygen Delivery 05/24/25 17:50 05/24/25 18:00 05/24/25 18:46 Temperature Pulse Rate 65 65 70 Pulse Rate [Right Radial] Respiratory Rate 20 20 Blood Pressure 119/70 120/70 Pulse Oximetry 100 100 Oxygen Delivery 05/24/25 19:48 05/24/25 20:00 05/24/25 20:56 Temperature 36.4 C L 36.6 C Pulse Rate 67 64 68 Pulse Rate [Right Radial] Respiratory Rate 18 18 Blood Pressure 126/62 130/91 H Pulse Oximetry 97 99 Oxygen Delivery 05/24/25 22:00 05/25/25 00:00 05/25/25 00:00 Temperature 36.4 C Pulse Rate 63 60 60 Pulse Rate [Right Radial] Respiratory Rate 17 Blood Pressure 119/73 Pulse Oximetry 98 Oxygen Delivery 05/25/25 02:00 05/25/25 04:00 05/25/25 04:00 Temperature 36.4 C Pulse Rate 70 66 69 Pulse Rate [Right Radial] Respiratory Rate 17 Blood Pressure 136/70 Pulse Oximetry 96 Oxygen Delivery 05/25/25 06:00 05/25/25 07:48 Temperature 36.5 C Pulse Rate 71 67 Pulse Rate [Right Radial] Respiratory Rate 17 Blood Pressure 134/94 H Pulse Oximetry 97 Oxygen Delivery Intake/Output Intake/Output: Intake & Output 05/22/25 05/23/25 05/24/25 05/25/25 23:59 23:59 23:59 23:59 Intake Total 1560 1642 440 460 Output Total 5 Balance 1560 1642 440 455 Meds/Results Medications: Active Medications Generic Name Dose Route Start Last Admin Trade Name Freq PRN Reason Stop Dose Admin Acetaminophen 650 mg 05/21/25 12:51 Acetaminophen 325 Mg Tablet PO Q4H PRN Mild Pain (1-3) or Fever Hydrocodone Bitart/Acetaminophen 1 tab 05/21/25 12:51 Hydrocodone/Acetaminophen (*Crx) 5-325 Mg Tablet PO Q4H PRN Pain Rated 4-6 Aspirin 81 mg 05/22/25 09:00 05/24/25 08:14 Aspirin 81 Mg Enteric Tablet PO 81 mg QAM NIGEL Administration Atorvastatin Calcium 80 mg 05/21/25 13:55 05/24/25 08:14 Atorvastatin 40 Mg Tablet PO 80 mg DAILY NIGEL Administration Clopidogrel Bisulfate 75 mg 05/21/25 13:55 05/24/25 08:14 Clopidogrel Bisulfate 75 Mg Tablet PO 75 mg DAILY NIGEL Administration Duloxetine HCl 60 mg 05/21/25 13:55 05/24/25 08:15 Duloxetine Hcl 60 Mg Capsule.Dr PO 60 mg DAILY NIGEL Administration Gabapentin 900 mg 05/21/25 14:50 05/24/25 18:44 Gabapentin 300 Mg Capsule PO 900 mg TID NIGEL Administration Metoprolol Succinate 25 mg 05/22/25 12:00 05/24/25 08:14 Metoprolol Succinate Ext Rel 25 Mg Tabcr PO 25 mg QAM NIGEL Administration Morphine Sulfate 4 mg 05/21/25 12:51 Morphine Sulfate (*Crx) 4 Mg/Ml Inj IV PUSH Q2H PRN Pain Rated 7-10 Nitroglycerin 0.4 mg 05/21/25 13:37 Nitroglycerin Sl 0.4 Mg Tablet SUBLINGUAL Q5M PRN Chest Pain Nitroglycerin 1 inch 05/21/25 18:00 05/25/25 06:22 Nitroglycerin Ointment 1 Inch Dose TRANSDERM Not Given Q6HR NIGEL Ondansetron HCl 4 mg 05/21/25 12:51 05/23/25 16:56 Ondansetron Inj 4 Mg/2 Ml Vial IV PUSH 4 mg Q4H PRN Administration Nausea Pantoprazole Sodium 40 mg 05/21/25 13:55 05/24/25 08:14 Pantoprazole 40 Mg Tablet PO 40 mg QAM NIGEL Administration Perflutren Lipid Microsphere 0 ml 05/24/25 10:35 Perflutren Lipid Microspheres 1.5 Ml Vial Diluted To 10 Ml Total Volume IV PUSH 05/27/25 10:35 ONCE PRN adequate visualization Protocol Radiology Results: ITS Impressions Chest X-Ray 05/21/25 10:31 Impression: No acute cardiopulmonary abnormality. Labs Labs: Laboratory Results - last 24 hr 05/25/25 03:35 WBC 7.5 RBC 5.10 Hgb 16.1 Hct 47.4 MCV 92.9 MCH 31.6 MCHC 34.0 RDW 12.7 Plt Count 230 MPV 10.0 Immature Gran % (Auto) 0.3 Neut % (Auto) 50.7 Lymph % (Auto) 33.2 [place] % (Auto) 12.0 H Eos % (Auto) 3.1 Baso % (Auto) 0.7 Lymph # (Auto) 2.48 [place] # (Auto) 0.9 H Eos # (Auto) 0.2 Baso # (Auto) 0.1 Abs Immat Gran (auto) 0.02 Absolute Neuts (auto) 3.8 Absolute Nucleated RBC 0.000 Nucleated RBC % 0.0 Sodium 135 L Potassium 4.0 Chloride 103 Carbon Dioxide 27 Anion Gap 5 BUN 13 Creatinine 0.75 Estim Creat Clear Calc 88 Estimated GFR > 60 Glucose 112 H Calcium 8.6 Total Bilirubin 0.7 AST 32 ALT 30 Alkaline Phosphatase 62 Total Protein 6.7 Albumin 3.9
[2025-05-25] MEDS: GABAPENTIN 300 MG CAPSULE 900 MG PO (09:25)
[2025-05-25] MEDS: CLOPIDOGREL BISULFATE 75 MG TABLET PO (09:25)
[2025-05-25] MEDS: DULoxetine HCL 60 MG CAPSULE.DR PO (09:25)
[2025-05-25] MEDS: PANTOPRAZOLE 40 MG TABLET PO (09:25)
[2025-05-25] MEDS: ASPIRIN 81 MG ENTERIC TABLET PO (09:25)
[2025-05-25] MEDS: ATORVASTATIN 40 MG TABLET 80 MG PO (09:25)
[2025-05-25] MEDS: METOPROLOL SUCCINATE EXT REL 25 MG TABCR PO (09:25)
--- NOTE | 2025-05-25 10:34 | PCPTNOTE ---
Attempted PT evaluation, pt refused stating he is independent in the room and has no mobility concerns. Nursing aware. Discharging therapy orders at this time due to pt refusing.
--- NOTE | 2025-05-25 10:35 | PCOTNOTE ---
Pt declines therapy stating he is I. Plan is for pt to discharge home today. Will cancel OT evaluation orders.
--- NOTE | 2025-05-25 11:19 | P.DS_ITS ---
DS: Admitting Diagnosis Discharge Date 05/25/2025 Admitting Diagnosis Chest pain DS: Discharge Diagnosis Discharge Diagnosis (1) Intermittent chest pain: Code(s): R07.9 - Chest pain, unspecified Status: Acute Assessment and Plan: The patient initially presented with 1 week of intermittent chest pressure and generalized weakness on 05/05. At that time he reported some associated nausea and diaphoresis. Declined admission for further cardiac workup at that time. Presented on 05/21 for re-evaluation after his PCP became concerned that he had EKG changes. Reviewed EKGs completed today, no significant ST depressions or elevations. Repeat EKG now showing increased PVCs. * continue serial troponins, thus far negative x2 * nitro SL p.r.n. * continue daily aspirin, atorvastatin, Plavix * telemetry monitoring * cardiology consulted, cardiac catheterization today * Continue anti-platelet therapy, atorvastatin and nitro paste * Left MCA widely patent without significant obstructive disease, lad down to 20% ostial stenosis, left circumflex is codominant vessel with 10-20% stenosis, om 3 has stent with 10-20% ISR, cardia to 40% stenosis leading to OM 4 branch, ramus has ostial 10-20% stenosis, RCA: Dominant vessel with 50% stenosis and proximal body followed by 30-40% stenosis in mid body, LV end-diastolic pressure 14 mmHg, low normal LVEF, no significant gradient across aortic valve on catheter pullback. Opening AO pressure 95/50 to a closing AO pressure 111/82 * Echocardiogram: EF of 45-50% (2) Hyperlipidemia: Qualifiers: Hyperlipidemia type: mixed hyperlipidemia Qualified Code(s): E78.2 - Mixed hyperlipidemia Code(s): E78.5 - Hyperlipidemia, unspecified Status: Chronic Assessment and Plan: * Continue atorvastatin (3) Essential hypertension: Code(s): I10 - Essential (primary) hypertension Status: Resolved Assessment and Plan: * chronic, currently 102/70, stable and does not require daily antihypertensives. * monitor Plan Diet: Heart healthy GI Prophylaxis: n/a DVT Prophylaxis: SCDs IV fluids: None Lines/Tubes: Peripheral IV Code Status: Full code DS: Summary Hospital Course Reason for hospitalization: Chest pain Hospital Course: Per HPI: Chest pain/CAD. 60-year-old man with coronary disease status post 2 previous i nterventions in the circumflex presenting with chest pain that is creating concern although it is atypical and ECG and enzymes look normal. Because of his symptoms and because of the ventricular ectopy follow-up angiography was recommended. He is s/p [facility] with mild non-obstructive CAD noted. 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 Contreras. Continue his aspirin 81 mg daily, plavix 75 mg daily and atorvastatin 80 mg daily PVCs. Noted to have frequent PVCs on tele monitor may be contributing to mild reduction in EF and chest pain. He has been started on low dose Toprol Xl 25 mg daily and would have him continue at discharge. His potassium is stable at 4. Magnesium on last check was 2. Would continue to monitor lytes and keep K>4 and Mag >2. Will benefit from OP tele monitoring HFmeF. With EF of 45-50% on echo. May be secondary to his frequent PVCs. No volume overload at this time. Would continue with Metoprolol XL 25mg daily. Can consider addition of ARB/ARNI on OP basis. Hyperlipidemia. Continue atorvastatin 80 mg daily. Patient rt radial site is S/D/I without hematoma today. He is stable for dc home later today from CV standpoint and f/u with his software licensing executive Dr. Contreras in the next 1-2 weeks Hospital course: Cardiology consulted regarding intermittent chest pain. They recommended a coronary angiography, and to continue on anti-platelet therapy, atorvastatin nitropaste p.r.n. for chest pain. Left heart catheterization was performed on 05/24, mild nonobstructive CAD noted. Echocardiogram was also obtained which showed left ventricle mildly dilated with mildly reduced systolic function and an EF of 45-50%. Patient was noted to have multiple PVCs on telemetry which may be contributing to his reduction in EF and associated chest pain. Cardiology recommended starting on low-dose Toprol XL 25 mg daily and that follow-up in the outpatient setting with the software licensing executive office. Throughout hospitalization, patient denied any chest pain. Did have some episodes of dizziness throughout the weekend associated with species, however at no point did he have any chest pain similar to what he presented to the hospital with. He was cleared for discharge from cardiology standpoint with appropriate follow-up in the outpatient setting with their office. Patient is hemodynamically stable. Vital signs have remained stable throughout hospitalization and blood work is unremarkable. Recommend continuing aspirin, Plavix, and atorvastatin. Patient is amenable to discharge, plan for discharge home at this time. Status at Discharge Functional status at discharge: independent ambulation Overall status at discharge: patient is back to baseline Time Spent with Patient Time attestation: Total time spent providing and/or coordinating discharge services: 31 Exam Const: General: comfortable and no acute distress Other: , male, nontoxic appearance HENMT: Face/Nose/Sinus: Normal nares present Mouth: Yes moist mucous membranes Eyes: General: appearance normal, both eyes and all related structures Sclera: sclerae normal Pupils: Equal, round and reactive pupils present EOM: EOMs intact bilaterally Resp: Effort & Inspection: normal respiratory effort Auscultation: clear to auscultation bilaterally Cardio: Rate: regular rate Rhythm: regular rhythm Other: S1-S2 present without murmur, rub, ectopy GI: Other: Abdomen soft, nondistended, nontender. Normoactive bowel sounds in all quadrants. Skin: General skin exam: normal color and no rashes or lesions noted Wounds: no wounds Neuro: Cranial nerves: Yes Equal, round and reactive pupils present Speech: normal speech Motor exam (neuro): 5/5 motor strength present throughout Sensory Exam: normal sensation Other: A&O x4 Extrem: General: normal to inspection Psych: Mental Status: mental status grossly normal Affect: normal affect Other: Good insight and judgment, pleasant DS: Data Data Completed and Pending Labs on day of discharge: Labs from last 24 hours 05/25/25 03:35 WBC 7.5 RBC 5.10 Hgb 16.1 Hct 47.4 MCV 92.9 MCH 31.6 MCHC 34.0 RDW 12.7 Plt Count 230 MPV 10.0 Immature Gran % (Auto) 0.3 Neut % (Auto) 50.7 Lymph % (Auto) 33.2 [place] % (Auto) 12.0 H Eos % (Auto) 3.1 Baso % (Auto) 0.7 Lymph # (Auto) 2.48 [place] # (Auto) 0.9 H Eos # (Auto) 0.2 Baso # (Auto) 0.1 Abs Immat Gran (auto) 0.02 Absolute Neuts (auto) 3.8 Absolute Nucleated RBC 0.000 Nucleated RBC % 0.0 Sodium 135 L Potassium 4.0 Chloride 103 Carbon Dioxide 27 Anion Gap 5 BUN 13 Creatinine 0.75 Estim Creat Clear Calc 88 Estimated GFR > 60 Glucose 112 H Calcium 8.6 Total Bilirubin 0.7 AST 32 ALT 30 Alkaline Phosphatase 62 Total Protein 6.7 Albumin 3.9 Discharge Plan Discharge Attending physician on discharge: Ashley Wheeler Consulting providers: William Arroyo; Jose Mendoza Discharging Clinician: William Arroyo Anticipated Discharge Date/Time: 05/25/25 11:16 Patient Disposition: Home Activity: as tolerated Diet: heart healthy Discharge Instructions: [facility] [address] [place] [address] DISCHARGE INSTRUCTIONS - POST RADIAL CATH Activity 1. No driving for 24 hours. 2. No lifting more than 5 lb with affected arm for 1 week. 3. May shower ( tomorrow) but no excessive soaking of affected hand/wrist (such as washing dishes), swimming pool or hot tub for 5 days. Wound Care 1. May remove arm board in the morning. 2. May remove gauze dressing in the morning and put Band-Aid over affected radial site. Keep site covered for 3 days. 3. Observe for redness, drainage, swelling or bleeding. Medications DO NOT STOP YOUR MEDICATIONS ONLY YOUR PARA OPERATOR CAN STOP THE FOLLOWING MEDICATIONS - PLEASE CALL THE OFFICE WITH QUESTIONS. *Aspirin *Ticagrelor (Brilinta) *Atorvastatin *Lisinopril or ARB *Metoprolol tartrate or succinate *Clopidogrel (Plavix) *Prasugrel (Effient) Important Reminders 1. Keep your stent card in your wallet at all times 2. Follow a heart healthy diet paying extra attention to cholesterol and fats. 3. Stay hydrated. 4. If you have chest pain unrelieved by rest or nitroglycerin (if prescribed) call 911 immediately. 5. If you miss one dose of Brilinta (if prescribed) take a tablet at the next time due. If you miss 2 doses take a tablet when you remember and resume at the next time due. *For any other questions please call the office at [phone]. Office hours are 8AM 4:30PM Saturday through Saturday. Patient Instructions: Metoprolol (By mouth), Clopidogrel (By mouth), Moderate Sedation (DC), Left Heart Catheterization (DC) Patient Language: [place] Stand Alone Forms: General Discharge Information Follow-up/Referrals: Ebonie,ISHAN Mcclain [Primary Care Provider] Discharge Medications: New metoprolol succinate [Toprol XL] 25 mg Tablet Extended Release 24 Hr 25 mg PO QAM Qty: 30 0RF Continued pantoprazole 40 mg tablet,delayed release (DR/EC) 40 mg PO QAM clopidogrel 75 mg tablet 75 mg PO DAILY nitroglycerin 0.4 mg tablet, sublingual 0.4 mg sublingual Q5M PRN (Reason: chest pain) Rx Instructions: do not exceed 3 doses per episode aspirin 81 mg Tablet,Delayed Release (Dr/Ec) 81 mg PO QAM Qty: 100 0RF gabapentin 300 mg capsule 900 mg PO TID Qty: 270 1RF atorvastatin 80 mg tablet See Rx Instructions .ROUTE .COMPLEX Qty: 90 0RF Dose Instruction: Take 1 tablet by mouth once daily Rx Instructions: Take 1 tablet by mouth once daily duloxetine 60 mg capsule,delayed release(DR/EC) 60 mg PO DAILY Qty: 90 1RF Date of admission: 05/23/25 13:15 Primary Care Provider: EbonieSarahi Admitting Provider: Kyle Anderson Attending physician on admission: Kyle Anderson Condition: Stable Quality VTE Prophylaxis VTE prophylaxis: mechanical ordered
== END 2025-05-25 11:46 | disposition home or self-care (01) | DRG 287 ==
LOC: ANHED 13:42 → ANHIMU 13:45
PROVIDERS: Internal Medicine; Student in an Organized Health Care Education/Training Program; Admitting Provider Internal Medicine; Emergency Provider Emergency Medicine; PCP Registered Nurse; Visit Provider Physician Assistant
PROC: 4A023N7 Measurement of Cardiac Sampling and Pressure, Left Heart, Percutaneous Approach (ICD-10-PCS; CPT 93452; principal; 2025-05-24 11:00)
DX: I49.3 Ventricular premature depolarization (principal); I47.20 Ventricular tachycardia, unspecified; R07.89 Other chest pain; I25.10 Atherosclerotic heart disease of native coronary artery without angina pectoris; I48.91 Unspecified atrial fibrillation; I10 Essential (primary) hypertension; E78.5 Hyperlipidemia, unspecified; G62.9 Polyneuropathy, unspecified; N40.1 Benign prostatic hyperplasia with lower urinary tract symptoms; R35.1 Nocturia; M47.896 Other spondylosis, lumbar region; F10.90 Alcohol use, unspecified, uncomplicated; F12.90 Cannabis use, unspecified, uncomplicated; Z79.82 Long term (current) use of aspirin; Z87.891 Personal history of nicotine dependence; I25.2 Old myocardial infarction
CPT/HCPCS: 36415; 71046; 80048; 80053; 80061; 83690; 84484; 85025; 85610; 85730; 93005; 93306; 93458; 96372; 99285; A9270; C1769; C1887; C1894; G0378; J1644; J1650; J2003; J2250; J2305; J2405; J3010; J7030; J7040